=== PATIENT | female | born 1960 | race Caucasian/White ===

== ENCOUNTER → 2017-02-27 | Outpatient (CLI) | payer MEDICARE, BC ==
--- NOTE | 2017-02-27 15:15 | US ---
EXAMINATION TYPE: US venous doppler duplex LE DATE OF EXAM: 02/27/2017 2:34 PM COMPARISON: US CLINICAL HISTORY: I87.2 Venious Insuffiency I73.9 Decreased Pulses. Pt states H/O DVT right leg, curr ently has Chava filter in place SIDE PERFORMED: Bilateral TECHNIQUE: The lower extremity deep venous system is examined utilizing real time linear array sonog lili with graded compression, doppler sonography and color-flow sonography. VESSELS IMAGED: External Iliac Vein (EIV) Common Femoral Vein Deep Femoral Vein Greater Saphenous Vein * Femoral Vein Popliteal Vein Small Saphenous Vein * Proximal Calf Veins (* superficial vessels) Right Leg: Negative for DVT Left Leg: Negative for DVT IMPRESSION: 1. No evidence of DVT as visualized.
--- NOTE | 2017-03-05 11:08 | P.ARTDOP ---
Arterial Doppler LOWER EXTREMITY ARTERIAL DOPPLER: DATE OF SERVICE: 02/27/2017 Reason for study: Bilateral lower leg discoloration. Doppler waveforms: Multiphasic bilaterally throughout. Pulse volume recording: []. Pressure gradients: Mild at the foot level. Ankle-brachial indices: 0.99 on the right and 0.92 on the left. Toe pressures: 62 on the right, 66 on the left Impression: Possible mild SFA disease on the left. Decreased toe pressures probably vasospastic. Waveforms look good. Adequate tissue perfusion for healing.
== END | disposition home or self-care (01) ==
LOC: RADUSWWP 14:03
PROVIDERS: ATTEND Family Medicine
DX: I87.2 Venous insufficiency (chronic) (peripheral) (principal); I73.9 Peripheral vascular disease, unspecified
CPT/HCPCS: 93923; 93970

== ENCOUNTER 2017-05-17 16:01 | Emergency (ER) | payer MEDICARE, BC ==
[2017-05-17 16:06] VITALS: BP 120/58; PULSE 83; RESP 18; TEMP 98.4
--- NOTE | 2017-05-17 16:33 | ED ---
General Adult HPI - General Chief complaint: Extremity Problem,Nontraumatic Stated complaint: Arm Rash Time Seen by Provider: 05/17/17 16:15 Source: patient, RN notes reviewed Mode of arrival: ambulatory Limitations: no limitations - History of Present Illness Initial comments: patient is a 57-year-old female who presents emergency room today with chief complaint of a rash. She does admit that she has started using a new soap just a few days ago. She states has rash to her upper extremities across her trunk. She states it is very itchy. She also admits to a chronic dermatitis to the right lower extremity. She states she has noticed increased redness and some drainage coming from this area now just over the last 2 days. Patient does admit that she went to [facility] was advised coming here to room. She states she is not short of breath. She states she does use oxygen at home. She denies any other complaints or associated symptoms at this time. Patient denies any recent fever, chills, shortness of breath, chest pain, back pain, abdominal pain, nausea or vomiting, numbness or tingling, dysuria or hematuria, constipation or diarrhea, headaches or visual changes, or any other complaints. - Related Data Home Medications Medication Instructions Recorded Confirmed Albuterol Sulfate [Proventil Hfa] 2 puff INHALATION RT-Q8H PRN 05/25/15 05/25/15 Citalopram Hydrobromide [CeleXA] 20 mg PO DAILY 05/25/15 05/25/15 Enalapril [Vasotec] 10 mg PO BID 05/25/15 05/25/15 Furosemide [Lasix] 40 mg PO BID 05/25/15 05/25/15 Metoprolol Tartrate [Lopressor] 75 mg PO BID 05/25/15 05/25/15 Omeprazole [PriLOSEC] 20 mg PO BID 05/25/15 05/25/15 Phenytoin Sodium Extended 200 mg PO TID 05/25/15 05/25/15 [Dilantin] Potassium Chloride [Klor-Con 20] 20 meq PO DAILY 05/25/15 05/25/15 Simvastatin [Zocor] 40 mg PO HS 05/25/15 05/25/15 glipiZIDE XL [Glucotrol XL] 10 mg PO DAILY 05/25/15 05/25/15 metFORMIN HCL 1,000 mg PO BID 05/25/15 05/25/15 Previous Rx's Medication Instructions Recorded Cefuroxime [Ceftin] 250 mg PO BID #20 tablet 06/01/15 Enoxaparin [Lovenox] 120 mg SQ Q12HR #10 syringe 06/01/15 Insulin Detemir [Levemir] 20 unit SQ DAILY@1800 #30 vial 06/01/15 Ipratropium-Albuterol Nebulize 0 ml INHALATION RT-QID #120 neb 06/01/15 [Duoneb 0.5 mg-3 mg/3 ml Soln] Warfarin [Coumadin] 15 mg PO DAILY #60 tab 06/01/15 amLODIPine [Norvasc] 5 mg PO DAILY #30 tab 06/01/15 predniSONE 20 mg PO DAILY #7 tab 06/01/15 Cephalexin [Keflex] 500 mg PO Q12HR 10 Days 05/17/17 Famotidine [Pepcid] 20 mg PO BID #20 tablet 05/17/17 diphenhydrAMINE [Benadryl] 1 - 2 tab PO Q6HR PRN #30 capsule 05/17/17 predniSONE 20 mg PO DIRECTED #11 tab 05/17/17 Allergies Allergy/AdvReac Type Severity Reaction Status Date / Time codeine Allergy Rash/Hives Verified 05/17/17 16:07 Review of Systems ROS Statement: Those systems with pertinent positive or pertinent negative responses have been documented in the HPI. ROS Other: All systems not noted in ROS Statement are negative. Past Medical History Past Medical History: Asthma, COPD, CVA/TIA, Diabetes Mellitus, Deep Vein Thrombosis (DVT), GERD/Reflux, Hyperlipidemia, Hypertension, Memory Impairment, Pneumonia, Seizure Disorder, Sleep Apnea/CPAP/BIPAP Additional Past Medical History / Comment(s): obesity, subarachniod hemorrhage 2004 History of Any Multi-Drug Resistant Organisms: None Reported Past Surgical History: Adenoidectomy, Tonsillectomy Additional Past Surgical History / Comment(s): craniotomy 2005, tonsillectomy, wisdom teeth out , joby filter Past Anesthesia/Blood Transfusion Reactions: No Reported Reaction Past Psychological History: Depression Smoking Status: Current every day smoker Past Alcohol Use History: None Reported Past Drug Use History: None Reported - Past Family History Father Family Medical History: COPD, Coronary Artery Disease (CAD), CVA/TIA (Father at age of 68 from the vascular disease including CVA hypertension as well as diabetes mellitus type 2 .), Diabetes Mellitus, Hypertension Mother Family Medical History: COPD, Diabetes Mellitus (Mother at age of 72 from diabetes. His to as well as brain. She also had history of hypertension and COPD.), Hypertension Sister(s) Family Medical History: No Reported History (Patient has 2 sisters no major medical problems.) General Exam - General Exam Comments Initial Comments: General: The patient is awake and alert, in no distress, and does not appear acutely ill. Eye: Pupils are equal, round and reactive to light, extra-ocular movements are intact. No nystagmus. There is normal conjunctiva bilaterally. No signs of icterus. Ears, nose, mouth and throat: There are moist mucous membranes and no oral lesions. Neck: The neck is supple, there is no tenderness or JVD. Cardiovascular: There is a regular rate and rhythm. No murmur, rub or gallop is appreciated. Respiratory: Lungs are clear to auscultation, respirations are non-labored, breath sounds are equal. No wheezes, stridor, rales, or rhonchi. Musculoskeletal: Normal ROM, no tenderness. Strength 5/5. Sensation intact. Pulses equal bilaterally 2+. Neurological: A&O x 3. CN II-XII intact, There are no obvious motor or sensory deficits. Coordination appears grossly intact. Speech is normal. Skin: patient does have red raised maculopapular type rash going across the upper extremities and trunk. Chronic vasculitis to the right lower extremity with some redness on the border with some blisters fluid-filled to posterior aspect. Psychiatric: Cooperative, appropriate mood & affect, normal judgment. Limitations: no limitations Course Vital Signs 05/17/17 16:02 Temperature 98.4 F Pulse Rate 83 Respiratory 18 Rate Blood Pressure 120/58 O2 Sat by Pulse 87 L Oximetry Medical Decision Making - Medical Decision Making Case discussed in detail with attending physician Dr. Prieto. Patient reexamined at this time shows no signs of distress resting comfortably. patient will be placed on Benadryl, Pepcid, given steroid. She is diabetic states she takes metformin. Was discussed about this affecting her blood sugar. Patient was started on the antibiotic Keflex cover for possible secondary infection. since a pulse ox 97% on room air emergency room. She does admit she does not feel short of breath does use oxygen at home. Patient previous visit in the emergency room on 05/25/2015 pulse ox 86% on room air.Patient advised follow- up family doctor return here to the emergency room symptoms increase or worsen or for any other concerns. Disposition Clinical Impression: Allergic reaction Disposition: HOME SELF-CARE Condition: Stable Instructions: General Allergic Reaction (ED) Additional Instructions: Please use medication as discussed. Please follow-up with family doctor in the next 2 days of symptoms have not improved. Please return to emergency room if the symptoms increase or worsen or for any other concerns. Prescriptions: Cephalexin [Keflex] 500 mg PO Q12HR 10 Days diphenhydrAMINE [Benadryl] 1 - 2 tab PO Q6HR PRN #30 capsule PRN Reason: Allergic Reaction Famotidine [Pepcid] 20 mg PO BID #20 tablet predniSONE 20 mg PO DIRECTED #11 tab Referrals: Rome Astudillo MD [Primary Care Provider] - 1-2 days Time of Disposition: 16:32
== END 2017-05-17 17:01 | disposition home or self-care (01) ==
LOC: EC 16:01
DX: T78.40XA Allergy, unspecified, initial encounter (principal); E11.9 Type 2 diabetes mellitus without complications; K21.9 Gastro-esophageal reflux disease without esophagitis; E78.5 Hyperlipidemia, unspecified; I10 Essential (primary) hypertension; G40.909 Epilepsy, unspecified, not intractable, without status epilepticus; E66.9 Obesity, unspecified; F32.9 Major depressive disorder, single episode, unspecified; F17.200 Nicotine dependence, unspecified, uncomplicated; Z68.42 Body mass index [BMI] 45.0-49.9, adult; Z88.5 Allergy status to narcotic agent; Z79.84 Long term (current) use of oral hypoglycemic drugs; Z79.899 Other long term (current) drug therapy
CPT/HCPCS: 87070; 87205; 99283

== ENCOUNTER → 2017-06-10 | Outpatient (CLI) | payer MEDICARE, BC ==
--- NOTE | 2017-06-10 15:41 | US ---
LOWER EXTREMITY VENOUS INSUFFICIENCY SIDE PERFORMED: Bilateral 1) Color flow is present and patency is documented in the following vessels. No DVT or SVT is noted . EIV Common Femoral Vein Deep Femoral Vein Femoral Vein Popliteal Vein Proximal Calf Veins Greater Saph Vein Upper Small Saph Vein 2) There is venous reflux noted at the following venous levels: Right: EIV, CFV, femoral mid and di stal, popliteal proximal mid and distal, and small saph vein Valsalva not performed on left mid and distal femoral vein and popliteal vein due to patient starte d feeling dizzy. IMPRESSION: 1. Venous reflux right lower extremity.
== END | disposition home or self-care (01) ==
LOC: RADUSWWP 14:27
PROVIDERS: ATTEND Family Medicine
DX: I87.8 Other specified disorders of veins (principal)
CPT/HCPCS: 93970

== ENCOUNTER → 2018-08-27 | Outpatient (CLI) | payer MEDICARE, BC ==
--- NOTE | 2018-08-27 21:17 | CONS ---
CONSULTATION DATE OF SERVICE: 08/27/2018 This patient is a 58-year-old lady who has been evaluated in the sleep center for obstructive sleep apnea-hypopnea syndrome. HISTORY OF PRESENT ILLNESS/SLEEP-WAKE EVALUATION: This patient was diagnosed with obstructive sleep apnea about 15 years ago. Since that time she has been on treatment with CPAP. CPAP machine was broken several months ago. At present, her sleep schedule is from around 1 or 2 a.m. until 7 or 7:30 a.m. Sometimes she has problems with falling asleep, although there is no TV in the bedroom. She snores, has episodes of stopped breathing during sleep, awakenings with choking, palpitation, heartburn and nocturia. In the morning she wakes up tired, has difficulties paying attention, falling asleep during the day, has problems with memory, concentration, irritability, depression. [place] Sleepiness Scale today is significantly increased at 16. PAST MEDICAL HISTORY: Positive for: 1. Hypertension. 2. Diabetes mellitus. 3. COPD. 4. Multiple brain aneurysms with intracranial bleed in 2004. She had seizures at this time. 5. Hyperlipidemia. 6. Depression. 7. Acid reflux. 8. History of cardiac arrhythmia. PAST SURGICAL HISTORY: 1. Surgery for repairing brain aneurysms. . MEDICATIONS: 1. Metformin. 2. Enalapril. 3. Isosorbide. 4. Omeprazole. 5. Furosemide. 6. Lisinopril. 7. . 8. Metoprolol. 9. Amlodipine. 10.Glipizide. 11.Simvastatin. 12.Citalopram. 13.Patient is on 2 L/minute during sleep at home. FAMILY HISTORY: Hypertension, angina, heart problems, hyperlipidemia, stroke, bronchitis, lung problems, emphysema, acid reflux, diabetes, mental illness. SOCIAL HISTORY: History positive for smoking up to 2 packs per day for 30 years. Alcohol consumption none at the present time. REVIEW OF SYSTEMS: Snoring, multiple awakenings from sleep with choking, excessive daytime sleepiness. Patient takes naps 3 times a day. Significant swelling of the legs. PHYSICAL EXAMINATION: GENERAL: A pleasant lady without distress. VITAL SIGNS: BP 147/72, HR 91, RR 18, height 5 feet 1 inch, weight 267.6, body mass index 50.4, temperature 98.0, oxygen saturation at room air 88%. HEENT: PERRLA, EOMI. Evaluation of oropharynx showed tongue protrudes midline. Low position of soft palate. Retrognathia 7 mm. NECK: Supple. No JVD. Thyroid is not palpable. LUNGS: Clear to percussion and to auscultation. Good air exchange. No wheezing or rhonchi. HEART: S1, S2 regular. Soft systolic murmur on aorta. ABDOMEN: Obese. EXTREMITIES: Two plus bilateral leg edema with dermatitis. Dull sensation of the feet. DEFENSE TRAVEL ADMINISTRATOR: Awake, alert, and oriented X3. Cranial nerves 2 to 7 intact. There is no fasciculation or atrophy. noted. No focal deficits observed. IMPRESSION: 1. History of obstructive sleep apnea for 20 years, snoring, awakenings with choking, gasping for air, low position of soft palate, wide neck 16 inches in circumference, sleepiness, [place] Sleepiness Scale 16; obstructive sleep apnea-hypopnea syndrome. 2. History of chronic obstructive pulmonary disease; about 50 pack/years of smoking. Patient is on 2 L/minute oxygen supplement 24 hours per day. 3. Obesity; body mass index 50.4. 4. Hypertension. 5. History of 5 brain aneurysms, status post intracranial bleed in 2004. 6. Balance problems. 7. History of seizures in 2004 at the time of the intracranial bleed. 8. Diabetes mellitus. 9. History of cardiac arrhythmia. 10.Hyperlipidemia. 11.Depression. 12.Patient continues smoking about 1 pack a day. PLAN: 1. Polysomnography for evaluation of patient's breathing during sleep as soon as possible. 2. CPAP/BiPAP titration as soon as possible if sleep study confirms obstructive sleep apnea-hypopnea syndrome. 3. Preferable position during sleep on the side. 4. No driving if patient feels any sleepiness. 5. I will see patient for follow up visit to explain results of testing and following plan. Thank you very much for referring this patient for consultation. Sincerely, Andrea Browning MD, PhD, FAASM Diplomat of [employer] [facility] [place] MMODL / IJN: [id number] /
== END | disposition home or self-care (01) ==
LOC: SLEEP 16:13
PROVIDERS: ATTEND Internal Medicine
DX: G47.33 Obstructive sleep apnea (adult) (pediatric) (principal); E66.9 Obesity, unspecified; I10 Essential (primary) hypertension; R26.89 Other abnormalities of gait and mobility; E11.9 Type 2 diabetes mellitus without complications; E78.5 Hyperlipidemia, unspecified; F32.9 Major depressive disorder, single episode, unspecified; J44.9 Chronic obstructive pulmonary disease, unspecified; F17.210 Nicotine dependence, cigarettes, uncomplicated; Z68.43 Body mass index [BMI] 50.0-59.9, adult; Z86.79 Personal history of other diseases of the circulatory system; Z86.69 Personal history of other diseases of the nervous system and sense organs; Z99.81 Dependence on supplemental oxygen; Z98.890 Other specified postprocedural states; Z79.84 Long term (current) use of oral hypoglycemic drugs; Z79.899 Other long term (current) drug therapy
CPT/HCPCS: 99211

== ENCOUNTER → 2018-12-10 | Outpatient (CLI) | payer MEDICARE, BC ==
--- NOTE | 2018-12-10 17:28 | PN ---
PROGRESS NOTE DATE OF SERVICE: 12/10/2018 This patient is a 58-year-old lady who has been followed in Sleep Center for treatment of obstructive sleep apnea-hypopnea syndrome. In September of 2018 the patient had a polysomnogram which showed that patient has obstructive sleep apnea with significant oxygen desaturation during the night. Subsequently she had CPAP titration, and today is her first visit after she was started on treatment with BiPAP. Patient feels better with the BiPAP. She is able to use it every night without significant problems related to mask fitting, pressure and humidification. She is using it with additional 4 L/minute of oxygen supplement. Reading from her machine showed usage 100% of the nights, and 90% of the nights for more than 4 hours with average usage of 7 hours and 3 minutes. BiPAP range of pressure was from minimal EPAP 5 cm of water to the maximal IPAP 18 cm of water with a pressure support of 4 cm of water. Apnea-hypopnea index reading from the machine is only 0.6, which is absolutely normal. [place] Sleepiness Scale today is 7. MEDICATIONS: 1. Metformin. 2. Enalapril. 3. Isosorbide. 4. Omeprazole. 5. Furosemide. 6. Lisinopril. 7. Metoprolol. 8. Amlodipine. 9. Glipizide. 10.Simvastatin. 11.Citalopram. 12.Phenytoin. PHYSICAL EXAMINATION: GENERAL: A pleasant patient in no distress. VITAL SIGNS: BP 130/65, HR 94, RR 16, weight 250, temperature 98.3, oxygen saturation at room air 92%. HEENT: PERRLA, EOMI. Evaluation of oropharynx showed tongue protrudes midline. Low position of soft palate. Mallampati III. NECK: Supple. No JVD. Thyroid is not palpable. LUNGS: Clear to percussion and to auscultation. Good air exchange. No wheezing or rhonchi. HEART: Systolic murmur. ABDOMEN: Obese. EXTREMITIES: One plus ankle edema. CARTON FILLING MACHINE OPERATOR: Awake, alert, and oriented X3. Cranial nerves 2 to 7 intact. There is no fasciculation or atrophy. noted. No focal deficits observed. IMPRESSION: 1. Obstructive sleep apnea-hypopnea syndrome. Patient demonstrated great compliance with treatment, benefitting from treatment with BiPAP. 2. Chronic obstructive pulmonary disease. Patient is on oxygen supplement 24 hours a day. 3. History of smoking 50 pack/years. Patient continues to smoke. 4. Obesity. 5. Hypertension. 6. History of 5 brain aneurysms, status post intracranial bleed in 2004. 7. Balance problems. 8. History of seizures in 2005 at the time of intracranial bleed. 9. Diabetes mellitus. 10.History of cardiac arrhythmia. 11.Hyperlipidemia. 12.Depression. PLAN: 1. Smoking cessation program. 2. Patient should continue to use her BiPAP equipment every night for the whole night. 3. Losing weight. 4. Sleep hygiene with regular time in bed for at least 8 hours. 5. No driving if feeling any sleepiness. 6. We will maintain all necessary prescriptions for CPAP supplies, including mask, tube, filters. Thank you very much for allowing me to participate in the management of your patient. Sincerely, Andrea Browning MD, PhD, FAASM Diplomat of [employer] [facility] [place] MMODL / IJN: [id number] /
== END | disposition home or self-care (01) ==
LOC: SLEEP 15:19
PROVIDERS: ATTEND Internal Medicine
DX: G47.33 Obstructive sleep apnea (adult) (pediatric) (principal); J44.9 Chronic obstructive pulmonary disease, unspecified; F17.210 Nicotine dependence, cigarettes, uncomplicated; E66.9 Obesity, unspecified; I10 Essential (primary) hypertension; G40.909 Epilepsy, unspecified, not intractable, without status epilepticus; E11.9 Type 2 diabetes mellitus without complications; E78.5 Hyperlipidemia, unspecified; F32.9 Major depressive disorder, single episode, unspecified; Z79.84 Long term (current) use of oral hypoglycemic drugs; Z99.81 Dependence on supplemental oxygen; Z99.89 Dependence on other enabling machines and devices; Z86.79 Personal history of other diseases of the circulatory system; Z79.899 Other long term (current) drug therapy

== ENCOUNTER → 2019-03-22 | Outpatient (CLI) | payer MEDICARE, BC ==
--- NOTE | 2019-03-22 23:36 | BD ---
EXAMINATION TYPE: Axial Bone Density DATE OF EXAM: 03/22/2019 COMPARISON: NONE CLINICAL HISTORY: 59-year-old female disorder of bone Height: 5'1 Weight: 257 FRAX RISK QUESTIONS: History of Fracture in Adulthood: y Secondary Osteoporosis: 3. Menopause before 45: y Current Tobacco Use: y RISK FACTORS HISTORY OF: History of Wrist Fracture: R When: 2017 Family History of Osteoporosis: y Diet low in dairy products/other sources of calcium: y Postmenopausal woman: y Frequent falls: y Poor Health: y MEDICATIONS: Additional Medications: blood pressure, cardiac, diabetes, COPD Additional History: pt on O2 EXAM MEASUREMENTS: Bone mineral densitometry was performed using the [employer] System. Bone mineral density as measured about the Lumbar spine is: ----- L1-L4(G/cm2): 1.066 T Score Values are as follows: ----- L2: -1.3 ----- L3: -0.8 ----- L4: -1.1 ----- L1-L4: -1.0 Bone mineral density about the R hip (g/cm2): 0.763 Bone mineral density about the L hip (g/cm2): 0.747 T Score values are as follows: -----R Neck: -2.0 -----L Neck: -2.1 -----R Total: -1.9 -----L Total: -1.0 IMPRESSION: Osteopenia (T Score between -2.5 and -1). There is slightly increased risk of fracture and the patient may be considered for treatment. Re-Screen 2-5 years. NOTE: T-SCORE=SD OF THE YOUNG ADULT MEAN.
--- NOTE | 2019-03-24 08:48 | MM ---
Reason for exam: screening (asymptomatic). Last mammogram was performed 10 years and 9 months ago. History: Patient is postmenopausal and is nulliparous. Physical Findings: A clinical breast exam by your physician is recommended on an annual basis and results should be correlated with mammographic findings. MG 3D Screening Mammo W/Cad Bilateral CC and MLO view(s) were taken. Prior study comparison: June 15, 2008, bilateral digital screening mammogram. There are scattered fibroglandular densities. No significant changes when compared with prior studies. ASSESSMENT: Negative, BI-RAD 1 RECOMMENDATION: Routine screening mammogram of both breasts in 1 year.
== END | disposition home or self-care (01) ==
LOC: RADMAMWWP 15:24
PROVIDERS: ATTEND Family Medicine
DX: Z12.31 Encounter for screening mammogram for malignant neoplasm of breast (principal); M85.80 Other specified disorders of bone density and structure, unspecified site; Z78.0 Asymptomatic menopausal state
CPT/HCPCS: 77063; 77067; 77080

== ENCOUNTER 2019-06-03 16:01 | Inpatient (IN) | payer MEDICARE, BC ==
[2019-06-03] MEDS ORDERED: IPRATROPIUM-ALBUTEROL 3 ML NEB INHALATION STA (16:22)
[2019-06-03] MEDS ORDERED: NITROGLYCERIN-D5W PMX 50 MG in DEXTROSE/WATER 1 250ML.BAG IV ONE (16:29)
[2019-06-03] MEDS ORDERED: FUROSEMIDE 10 MG/ML 4 ML VIAL IV STA (16:30)
[2019-06-03 16:33] LABS: Anisocytosis Slight; Basophils % (A) 0 %; Eosinophils # (A) 0.2 k/uL (0-0.7); Eosinophils % (A) 2 %; HCT 32.5 % (34.0-46.0); HGB 10.3 gm/dL (11.4-16.0); Hypochromasia Slight; Lymphocytes % (A) 9 %; MCH 29.8 pg (25.0-35.0); MCHC 31.8 g/dL (31.0-37.0); MCV 93.7 fL (80.0-100.0); Mean Platelet Volume 6.2; Monocytes # (A) 0.4 k/uL (0-1.0); Monocytes % (A) 4 %; Neutrophils # (A) 9.5 k/uL (1.3-7.7); Neutrophils % (A) 84 %; Platelet Count 367 k/uL (150-450); RBC 3.47 m/uL (3.80-5.40); WBC 11.2 k/uL (3.8-10.6)
--- NOTE | 2019-06-03 16:36 | XR ---
EXAMINATION TYPE: XR chest 1V portable DATE OF EXAM: 06/03/2019 COMPARISON: 02/17/2019 HISTORY: Short of breath TECHNIQUE: Single frontal view of the chest is obtained. FINDINGS: Heart appears enlarged. There is pulmonary edema. There is no definite pleural effusion. T here are chest leads. IMPRESSION: Moderate pulmonary edema is a change compared to old exam and consistent with acute hear t failure.
[2019-06-03 16:40] LABS: VBG PH 7.31 (7.31-7.41)
[2019-06-03 16:43] LABS: ALT 40 U/L (9-52); AST 27 U/L (14-36); African American GFR (CKD) >90 (>60 ml/min/1.73 sqM); Albumin 4.1 g/dL (3.5-5.0); Alkaline Phosphatase 128 U/L (38-126); Anion Gap 7 mmol/L; Blood Urea Nitrogen 29 mg/dL (7-17); Calcium 8.7 mg/dL (8.4-10.2); Carbon Dioxide 30 mmol/L (22-30); Chloride 104 mmol/L (98-107); Glucose 208 mg/dL (74-99); Magnesium 2.2 mg/dL (1.6-2.3); Potassium 4.9 mmol/L (3.5-5.1); Sodium 141 mmol/L (137-145); Total Bilirubin 0.2 mg/dL (0.2-1.3); Total Protein 7.7 g/dL (6.3-8.2)
--- NOTE | 2019-06-03 16:48 | ED ---
General Adult HPI - General Chief complaint: Shortness of Breath Stated complaint: HU Chest pain Time Seen by Provider: 06/03/19 16:02 Source: patient Mode of arrival: EMS Limitations: no limitations - History of Present Illness Initial comments: Dictation was produced using [employer] dictation software. please excuse any grammatical, word or spelling errors. Chief Complaint: 79-year-old female with extensive history of asthma, intracranial ruptured aneurysm, deep venous thrombosis, COPD, CHF presents with shortness of breath and chest pain for the last 48 hours. History of Present Illness: 79-year-old female she is brought in by EMS. Patient states she is here today for shortness of breath and chest pain. States the chest pain is substernal crushing pressure that radiates to the right upper extremity and the jaws bilaterally. Patient states that she has a history of coronary artery disease. She was recently seen at her hand tube bender's office. The wanted to perform a trans esophageal echocardiogram and cardiac catheterization or patient went to postpone the procedure. Patient's symptoms have been ongoing for several months however rapidly progressive the last 2-3 days. Patient has history of DVTs thromboses. She is not on any anticoagulation because she has a history of intracranial bleed. Patient also has history of COPD. She was brought in by EMS. Prehospital EKG showed diffuse ST segment depression. She is placed on supplemental oxygen and was hypoxic for EMS. She does feel like her shortness of breath is worse with lying flat. She does complain of swelling of bilateral lower extremities. Patient has a history of valvular disease. The ROS documented in this emergency department record has been reviewed and confirmed by me. Those systems with pertinent positive or negative responses have been documented in the HPI. All other systems are other negative and/or noncontributory. PHYSICAL EXAM: General Impression: Alert and oriented x3, dyspneic HEENT: Normocephalic atraumatic, extra-ocular movements intact, pupils equal and reactive to light bilaterally, dry mucous membranes Cardiovascular: Tachycardic Chest: Bilateral lung crackles Abdomen: Bowel sounds present, abdomen soft, non-tender, non-distended, no organomegaly, obese Musculoskeletal: Pulses present and equal in all extremities, 2+ pitting edema to bilateral lower extremities Motor: no focal deficits noted Neurological: CN II-XII grossly intact, no focal motor or sensory deficits noted Skin: Intact with no visualized rashes Psych: Normal affect and mood ED course: 59-year-old female with multiple cardiopulmonary comorbidities presents with chest pain and shortness of breath. As upon arrival shows heart rate of 114, respiratory rate of 26, 89% on BiPAP. Patient was seen and evaluated initially in trauma resuscitation bay. Patient was showing signs of active respiratory distress. She does have positive findings on auscultation of the lungs. Clinical presentation is likely from acute D, stated heart failure however given patient's extensive medical history there is concern for acute coronary syndrome, pulmonary embolus. She was given aspirin and nitroglycerin for EMS. EKG was performed immediately showing diffuse ST depressions with AVR elevation. Patient case was discussed immediately with Dr. Li who recommends starting patient on nitro infusion. 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 Coag panel negative. D-dimer is 1.3. His blood gases shows pH of 7.3 with a CO2 of 62 and a bicarb of 30. Metabolic panel is unremarkable. Brain natruretic peptide is 400. Urinalysis is negative. Discussed patient case with Dr. Bermudez who does not recommend starting patient on heparin given history of intracranial bleed. He does recommend getting Doppler studies of the lower venous systems to evaluate for DVT for possible before meals filter. Patient was observed in emergency department and finally was able to to tolerate lying flat. CT angios the chest was obtained showing no evidence of pulmonary embolism. There did however appear to be bilateral lower lobe pulmonary infiltrates. Patient has been having a cough. There is concern of pneumonia. Patient given antibiotics for community acquired pneumonia. Patient was maintained on glycerin infusion. She is reevaluated and improved. She did have a [place] catheter placed. Patient appears stable for cardiac telemetry floor. Discussed patient case with Dr. Astudillo was went except patient's care. Cardiology and pulmonology on consultation. EKG interpretation: Ventricular rate 1:30, sinus tachycardia, VA interval 154, QS 96, QTC 471. There is AVR elevation, right axis deviation diffuse ST depression and sinus tachycardia. This was compared to EKG performed in 05/25/2015. - Related Data Home Medications Medication Instructions Recorded Confirmed Citalopram Hydrobromide [CeleXA] 20 mg PO DAILY 05/25/15 06/03/19 Enalapril [Vasotec] 10 mg PO BID 05/25/15 06/03/19 Furosemide [Lasix] 40 mg PO BID 05/25/15 06/03/19 Metoprolol Tartrate [Lopressor] 75 mg PO BID 05/25/15 06/03/19 Phenytoin Sodium Extended 200 mg PO TID 05/25/15 06/03/19 [Dilantin] Simvastatin [Zocor] 40 mg PO HS 05/25/15 06/03/19 glipiZIDE XL [Glucotrol XL] 10 mg PO DAILY 05/25/15 06/03/19 metFORMIN HCL 1,000 mg PO BID 05/25/15 06/03/19 Isosorbide Mononitrate ER [Imdur] 30 mg PO DAILY 06/03/19 06/03/19 Lisinopril [Zestril] 2.5 mg PO DAILY 06/03/19 06/03/19 Omeprazole [PriLOSEC] 10 mg PO BID 06/03/19 06/03/19 Previous Rx's Medication Instructions Recorded amLODIPine [Norvasc] 5 mg PO DAILY #30 tab 06/01/15 Allergies Allergy/AdvReac Type Severity Reaction Status Date / Time codeine Allergy Rash/Hives Verified 06/03/19 16:48 Review of Systems ROS Statement: Those systems with pertinent positive or pertinent negative responses have been documented in the HPI. ROS Other: All systems not noted in ROS Statement are negative. Past Medical History Past Medical History: Asthma, COPD, CVA/TIA, Diabetes Mellitus, Deep Vein Thrombosis (DVT), GERD/Reflux, Hyperlipidemia, Hypertension, Memory Impairment, Pneumonia, Seizure Disorder, Sleep Apnea/CPAP/BIPAP Additional Past Medical History / Comment(s): obesity, subarachniod hemorrhage 2004 History of Any Multi-Drug Resistant Organisms: None Reported Past Surgical History: Adenoidectomy, Tonsillectomy Additional Past Surgical History / Comment(s): craniotomy 2005, tonsillectomy, wisdom teeth out , joby filter Past Anesthesia/Blood Transfusion Reactions: No Reported Reaction Past Psychological History: Depression Smoking Status: Current every day smoker Past Alcohol Use History: None Reported Past Drug Use History: None Reported - Past Family History Father Family Medical History: COPD, Coronary Artery Disease (CAD), CVA/TIA, Diabetes Mellitus, Hypertension Mother Family Medical History: COPD, Diabetes Mellitus, Hypertension Sister(s) Family Medical History: No Reported History General Exam Limitations: no limitations Course Vital Signs 06/03/19 06/03/19 06/03/19 16:09 16:18 16:23 Temperature Pulse Rate 119 H 118 H Respiratory 22 26 H Rate Blood Pressure 173/82 O2 Sat by Pulse 89 L Oximetry 06/03/19 06/03/19 06/03/19 16:33 16:40 17:11 Temperature Pulse Rate 114 H 122 H 121 H Respiratory 30 H 30 H Rate Blood Pressure 170/78 178/99 O2 Sat by Pulse 90 L 90 L Oximetry 06/03/19 06/03/19 06/03/19 18:00 18:24 19:26 Temperature 97.4 F L Pulse Rate 89 88 86 Respiratory 25 H 25 H 22 Rate Blood Pressure 126/76 136/69 133/67 O2 Sat by Pulse 100 100 98 Oximetry Medical Decision Making - Lab Data Result diagrams: 06/03/19 16:16 06/03/19 16:16 Lab Results 06/03/19 06/03/19 06/03/19 Range/Units 16:16 16:16 16:16 WBC 11.2 H (3.8-10.6) k/uL RBC 3.47 L (3.80-5.40) m/uL Hgb 10.3 L (11.4-16.0) gm/dL Hct 32.5 L (34.0-46.0) % MCV 93.7 (80.0-100.0) fL MCH 29.8 (25.0-35.0) pg MCHC 31.8 (31.0-37.0) g/dL RDW 16.0 H (11.5-15.5) % Plt Count 367 (150-450) k/uL Neutrophils % 84 % Lymphocytes % 9 % Monocytes % 4 % Eosinophils % 2 % Basophils % 0 % Neutrophils # 9.5 H (1.3-7.7) k/uL Lymphocytes # 1.0 (1.0-4.8) k/uL Monocytes # 0.4 (0-1.0) k/uL Eosinophils # 0.2 (0-0.7) k/uL Basophils # 0.0 (0-0.2) k/uL Hypochromasia Slight Anisocytosis Slight PT 9.9 (9.0-12.0) sec INR 0.9 (<1.2) APTT 23.5 (22.0-30.0) sec D-Dimer 1.33 H (<0.60) mg/L FEU VBG pH (7.31-7.41) VBG pCO2 (37-51) mmHg VBG HCO3 (24-28) mmol/L Sodium 141 (137-145) mmol/L Potassium 4.9 (3.5-5.1) mmol/L Chloride 104 (98-107) mmol/L Carbon Dioxide 30 (22-30) mmol/L Anion Gap 7 mmol/L BUN 29 H (7-17) mg/dL Creatinine 0.60 (0.52-1.04) mg/dL Est GFR (CKD-EPI)AfAm >90 (>60 ml/min/1.73 sqM) Est GFR (CKD-EPI)NonAf >90 (>60 ml/min/1.73 sqM) Glucose 208 H (74-99) mg/dL Calcium 8.7 (8.4-10.2) mg/dL Magnesium 2.2 (1.6-2.3) mg/dL Total Bilirubin 0.2 (0.2-1.3) mg/dL AST 27 (14-36) U/L ALT 40 (9-52) U/L Alkaline Phosphatase 128 H (38-126) U/L Troponin I (0.000-0.034) ng/mL NT-Pro-B Natriuret Pep pg/mL Total Protein 7.7 (6.3-8.2) g/dL Albumin 4.1 (3.5-5.0) g/dL Urine Color Urine Appearance (Clear) Urine pH (5.0-8.0) Ur Specific [place] (1.001-1.035) Urine Protein (Negative) Urine Glucose (UA) (Negative) Urine Ketones (Negative) Urine Blood (Negative) Urine Nitrite (Negative) Urine Bilirubin (Negative) Urine Urobilinogen (<2.0) mg/dL Ur Leukocyte Esterase (Negative) Urine RBC (0-5) /hpf Urine WBC (0-5) /hpf Hyaline Casts (0-2) /lpf Urine Mucus (None) /hpf 06/03/19 06/03/19 06/03/19 Range/Units 16:16 16:16 16:27 WBC (3.8-10.6) k/uL RBC (3.80-5.40) m/uL Hgb (11.4-16.0) gm/dL Hct (34.0-46.0) % MCV (80.0-100.0) fL MCH (25.0-35.0) pg MCHC (31.0-37.0) g/dL RDW (11.5-15.5) % Plt Count (150-450) k/uL Neutrophils % % Lymphocytes % % Monocytes % % Eosinophils % % Basophils % % Neutrophils # (1.3-7.7) k/uL Lymphocytes # (1.0-4.8) k/uL Monocytes # (0-1.0) k/uL Eosinophils # (0-0.7) k/uL Basophils # (0-0.2) k/uL Hypochromasia Anisocytosis PT (9.0-12.0) sec INR (<1.2) APTT (22.0-30.0) sec D-Dimer (<0.60) mg/L FEU VBG pH 7.31 (7.31-7.41) VBG pCO2 62 H (37-51) mmHg VBG HCO3 30 H (24-28) mmol/L Sodium (137-145) mmol/L Potassium (3.5-5.1) mmol/L Chloride (98-107) mmol/L Carbon Dioxide (22-30) mmol/L Anion Gap mmol/L BUN (7-17) mg/dL Creatinine (0.52-1.04) mg/dL Est GFR (CKD-EPI)AfAm (>60 ml/min/1.73 sqM) Est GFR (CKD-EPI)NonAf (>60 ml/min/1.73 sqM) Glucose (74-99) mg/dL Calcium (8.4-10.2) mg/dL Magnesium (1.6-2.3) mg/dL Total Bilirubin (0.2-1.3) mg/dL AST (14-36) U/L ALT (9-52) U/L Alkaline Phosphatase (38-126) U/L Troponin I <0.012 (0.000-0.034) ng/mL NT-Pro-B Natriuret Pep 414 pg/mL Total Protein (6.3-8.2) g/dL Albumin (3.5-5.0) g/dL Urine Color Urine Appearance (Clear) Urine pH (5.0-8.0) Ur Specific [place] (1.001-1.035) Urine Protein (Negative) Urine Glucose (UA) (Negative) Urine Ketones (Negative) Urine Blood (Negative) Urine Nitrite (Negative) Urine Bilirubin (Negative) Urine Urobilinogen (<2.0) mg/dL Ur Leukocyte Esterase (Negative) Urine RBC (0-5) /hpf Urine WBC (0-5) /hpf Hyaline Casts (0-2) /lpf Urine Mucus (None) /hpf 06/03/19 Range/Units 19:45 WBC (3.8-10.6) k/uL RBC (3.80-5.40) m/uL Hgb (11.4-16.0) gm/dL Hct (34.0-46.0) % MCV (80.0-100.0) fL MCH (25.0-35.0) pg MCHC (31.0-37.0) g/dL RDW (11.5-15.5) % Plt Count (150-450) k/uL Neutrophils % % Lymphocytes % % Monocytes % % Eosinophils % % Basophils % % Neutrophils # (1.3-7.7) k/uL Lymphocytes # (1.0-4.8) k/uL Monocytes # (0-1.0) k/uL Eosinophils # (0-0.7) k/uL Basophils # (0-0.2) k/uL Hypochromasia Anisocytosis PT (9.0-12.0) sec INR (<1.2) APTT (22.0-30.0) sec D-Dimer (<0.60) mg/L FEU VBG pH (7.31-7.41) VBG pCO2 (37-51) mmHg VBG HCO3 (24-28) mmol/L Sodium (137-145) mmol/L Potassium (3.5-5.1) mmol/L Chloride (98-107) mmol/L Carbon Dioxide (22-30) mmol/L Anion Gap mmol/L BUN (7-17) mg/dL Creatinine (0.52-1.04) mg/dL Est GFR (CKD-EPI)AfAm (>60 ml/min/1.73 sqM) Est GFR (CKD-EPI)NonAf (>60 ml/min/1.73 sqM) Glucose (74-99) mg/dL Calcium (8.4-10.2) mg/dL Magnesium (1.6-2.3) mg/dL Total Bilirubin (0.2-1.3) mg/dL AST (14-36) U/L ALT (9-52) U/L Alkaline Phosphatase (38-126) U/L Troponin I (0.000-0.034) ng/mL NT-Pro-B Natriuret Pep pg/mL Total Protein (6.3-8.2) g/dL Albumin (3.5-5.0) g/dL Urine Color Light Yellow Urine Appearance Clear (Clear) Urine pH 5.0 (5.0-8.0) Ur Specific [place] 1.025 (1.001-1.035) Urine Protein Negative (Negative) Urine Glucose (UA) Negative (Negative) Urine Ketones Negative (Negative) Urine Blood Trace H (Negative) Urine Nitrite Negative (Negative) Urine Bilirubin Negative (Negative) Urine Urobilinogen <2.0 (<2.0) mg/dL Ur Leukocyte Esterase Negative (Negative) Urine RBC 2 (0-5) /hpf Urine WBC 2 (0-5) /hpf Hyaline Casts 1 (0-2) /lpf Urine Mucus Rare H (None) /hpf Critical Care Time Critical Care Time: Yes Total Critical Care Time: 33 Disposition Clinical Impression: Heart failure Disposition: ADMITTED IP TO THIS [facility] Condition: Fair Referrals: Rome Astudillo MD [Primary Care Provider] - 1-2 days Decision Time: 20:53
[2019-06-03 16:49] LABS: INR 0.9 (<1.2); Partial Thromboplastin Time 23.5 sec (22.0-30.0); Prothrombin Time 9.9 sec (9.0-12.0)
[2019-06-03 17:28] LABS: D-Dimer 1.33 mg/L FEU (<0.60)
--- NOTE | 2019-06-03 18:57 | US ---
EXAMINATION TYPE: US venous doppler duplex LE DATE OF EXAM: 06/03/2019 6:48 PM COMPARISON: US CLINICAL HISTORY: evaluate for DVT. Evaluate for DVT. HX DVT. Pt takes aspirin. [place] filter. SIDE PERFORMED: Bilateral TECHNIQUE: The lower extremity deep venous system is examined utilizing real time linear array sonog lili with graded compression, doppler sonography and color-flow sonography. VESSELS IMAGED: External Iliac Vein (EIV) Common Femoral Vein Deep Femoral Vein Greater Saphenous Vein * Femoral Vein Popliteal Vein Small Saphenous Vein * Proximal Calf Veins (* superficial vessels) Limited study due to body habitus, edema, and technical limitations. Right Leg: Thready flow seen in mid portion of the right femoral vein. Possible thrombus in this are a. Limited evaluation of femoral vein due to patient body habitus and technical limitations. Patient could not tolerate compression of mid and distal femoral vein. Left Leg: No evidence of DVT in veins imaged from prox calf veins to CFV. EIV not visualized. . IMPRESSION: No evidence of deep venous thrombosis in the left leg. There is evidence for some chronic deep venous thrombosis in the right leg in the femoral vein
--- NOTE | 2019-06-03 19:20 | CT ---
EXAMINATION TYPE: CT angio chest DATE OF EXAM: 06/03/2019 7:11 PM COMPARISON: 03/01/2019 HISTORY: SOB CT DLP: 984.2 mGycm Automated exposure control for dose reduction was used. CONTRAST: CTA scan of the thorax is performed with IV Contrast, patient injected with 100 mL of Isovue 300, pul monary embolism protocol. There are 3-D post processed images.. FINDINGS: There is patchy infiltrate and atelectasis in the posterior lung redman. There is very small left ple ural effusion. There is thickening of the left and right adrenal gland consistent with hypertrophy. Heart is slightly enlarged. There is no pericardial effusion. There are no hilar masses. There is nor mal contrast opacification of the pulmonary arteries. There are no filling defects. There is multiple paratracheal and anterior mediastinal lymph nodes that measure up to 2 cm. Thoracic aorta shows athe romatous change. There is no aneurysm or dissection. IMPRESSION: NO EVIDENCE OF PULMONARY EMBOLISM. BILATERAL LOWER LOBE PULMONARY INFILTRATES AND ATELECTASIS ARE NEW COMPARED TO OLD EXAM. THERE IS INC REASED MEDIASTINAL AND BRONCHIAL ADENOPATHY COMPARED TO OLD EXAM.
[2019-06-03] MEDS ORDERED: cefTRIAXone IN SWFI 1,000 MG/10 ML SYRINGE IVP STA (19:42)
[2019-06-03] MEDS ORDERED: AZITHROMYCIN 500 MG in SODIUM CHLORIDE 0.9% 250 ML IVPB STA (19:42)
[2019-06-03 20:19] LABS: Appearance,Urine Clear (Clear); Bilirubin,Urine Negative (Negative); Blood,Urine Trace (Negative); Color,Urine Light Yellow; Glucose,Urine (UA) Negative (Negative); Hyaline Casts,Urine 1 /lpf (0-2); Ketones,Urine Negative (Negative); Leukocyte Esterase,Urine Negative (Negative); Mucus,Urine Rare /hpf; Nitrite,Urine Negative (Negative); Protein,Urine Negative (Negative); RBC,Urine 2 /hpf (0-5); Specific Gravity,Urine 1.025 (1.001-1.035); Urobilinogen,Urine <2.0 mg/dL (<2.0)
[2019-06-03] MEDS ORDERED: metFORMIN 500 MG TAB PO SCH (21:00)
[2019-06-03] MEDS: SODIUM CHLORIDE 0.9% 1,000 ML IV SCH (21:14)
[2019-06-03 22:40] LABS: Glucose,Whole Blood 102 mg/dL (75-99)
[2019-06-03] MEDS ORDERED: ACETAMINOPHEN TAB 325 MG TAB PO PRN (22:50)
[2019-06-03] MEDS: LISINOPRIL 20 MG TAB PO SCH (23:02)
[2019-06-03] MEDS: ATORVASTATIN 20 MG TAB PO SCH (23:02)
[2019-06-03] MEDS: METOPROLOL TARTRATE 50 MG TAB PO SCH (23:02)
[2019-06-03] MEDS: PHENYTOIN SODIUM EXTENDED 100 MG CAP PO SCH (23:03)
[2019-06-03] MEDS: PANTOPRAZOLE 40 MG TABLET PO SCH (23:04)
[2019-06-03] MEDS: FUROSEMIDE 10 MG/ML 4 ML VIAL IV SCH (23:06)
[2019-06-04 06:13] LABS: Glucose,Whole Blood 105 mg/dL (75-99)
[2019-06-04] MEDS: INSULIN ASPART (NovoLOG) 100 UNIT/ML VIAL SQ SCH ×4 (06:15→21:28)
[2019-06-04] MEDS: glipiZIDE 5 MG TAB PO SCH ×2 (06:45→17:27)
[2019-06-04] MEDS ORDERED: ALBUTEROL NEBULIZED 2.5 MG/3 ML INHALATION SCH (08:00)
[2019-06-04] MEDS: FUROSEMIDE 10 MG/ML 4 ML VIAL IV SCH ×3 (08:59→23:33)
[2019-06-04] MEDS ORDERED: LISINOPRIL 2.5 MG TAB PO SCH (09:00)
[2019-06-04] MEDS: amLODIPine 5 MG TAB PO SCH (09:42)
[2019-06-04] MEDS: CITALOPRAM HYDROBROMIDE 20 MG TAB PO SCH (09:42)
[2019-06-04] MEDS: METOPROLOL TARTRATE 50 MG TAB PO SCH ×2 (09:43→21:28)
[2019-06-04] MEDS: LISINOPRIL 20 MG TAB PO SCH ×2 (09:43→21:27)
[2019-06-04] MEDS: PANTOPRAZOLE 40 MG TABLET PO SCH (09:48)
[2019-06-04] MEDS: PHENYTOIN SODIUM EXTENDED 100 MG CAP PO SCH ×3 (09:49→21:27)
--- NOTE | 2019-06-04 11:08 | P.CRDCN ---
History of Present Illness Consult date: 06/04/19 Requesting physician: Rome Astudillo Consult reason: chest pain, shortness of breath Chief complaint: Chest pain and shortness of breath History of present illness: This is a 59-year-old female who follows with Dr. Lane in the office, she seen him most recently in the office on Friday. She has history of severe COPD, home O2, nicotine dependence, pulmonary hypertension, severe aortic stenosis, obesity, diabetes, hypertension, hyperlipidemia, peripheral vascular disease. Patient has been having frequent episodes of chest discomfort with associated difficulty in breathing. It was recommended by Dr. Lane that the patient undergo a GAVIOTA with subsequent cardiac catheterization. Patient was quite anxious to have this procedure performed, which is why it has been scheduled a week out. It is actually scheduled on the of this month. Patient presents to the hospital on this occasion with symptoms of recurrent chest discomfort and worsening in her breathing. She states that she's been using nitroglycerin on a daily basis, she ran out of it yesterday. Chest x-ray showed moderate pulmonary edema, change as compared with prior exam. Venous duplex study was performed, no evidence of DVT in the left leg, thready flow seen in the midportion of the right femoral vein. Possible thrombus in this area. Limited evaluation of the femoral vein due to patient body habitus. CT of the chest did not reveal evidence of a pulmonary embolism. Bilateral lower lobe pulmonary infiltrates and atelectasis new as compared with prior exam. There is some increased mediastinal and bronchial adenopathy as compared with old exam. EKG shows a sinus tachycardia with inferior lateral ST depression. Blood pressure 128/60 with a heart rate in the 80s, 92% on room air. White blood cell count 11.2, hemoglobin 10.3, platelet count 367. D-dimer 1.3, pH 7.3, pCO2 62, HCO3 30. Sodium 141, potassium 4.9, BUN 29, creatinine 0.6. Troponin 0.012. BNP level 414. Patient was initiated on IV Lasix in the emergency room along with IV nitroglycerin drip. The patient has been putting o ut excellent urine since the Lasix started. She continues to feel short of breath, unable to lie flat. Past Medical History Past Medical History: Asthma, Heart Failure, COPD, CVA/TIA, Diabetes Mellitus, Deep Vein Thrombosis (DVT), GERD/Reflux, Hyperlipidemia, Hypertension, Memory Impairment, Pneumonia, Seizure Disorder, Sleep Apnea/CPAP/BIPAP Additional Past Medical History / Comment(s): obesity, subarachniod hemorrhage 2004, emphysema History of Any Multi-Drug Resistant Organisms: None Reported Past Surgical History: Adenoidectomy, Tonsillectomy Additional Past Surgical History / Comment(s): craniotomy 2005, tonsillectomy, wisdom teeth out , joby filter Past Anesthesia/Blood Transfusion Reactions: No Reported Reaction Past Psychological History: Depression Smoking Status: Current every day smoker Past Alcohol Use History: None Reported Past Drug Use History: None Reported - Past Family History Father Family Medical History: COPD, Coronary Artery Disease (CAD), CVA/TIA, Diabetes Mellitus, Hypertension Mother Family Medical History: COPD, Diabetes Mellitus, Hypertension Sister(s) Family Medical History: No Reported History Medications and Allergies Home Medications Medication Instructions Recorded Confirmed Type Citalopram Hydrobromide [CeleXA] 20 mg PO DAILY 05/25/15 06/03/19 History Enalapril [Vasotec] 10 mg PO BID 05/25/15 06/03/19 History Furosemide [Lasix] 40 mg PO BID 05/25/15 06/03/19 History Metoprolol Tartrate [Lopressor] 75 mg PO BID 05/25/15 06/03/19 History Phenytoin Sodium Extended 200 mg PO TID 05/25/15 06/03/19 History [Dilantin] Simvastatin [Zocor] 40 mg PO HS 05/25/15 06/03/19 History glipiZIDE XL [Glucotrol XL] 10 mg PO DAILY 05/25/15 06/03/19 History metFORMIN HCL 1,000 mg PO BID 05/25/15 06/03/19 History amLODIPine [Norvasc] 5 mg PO DAILY #30 tab 06/01/15 06/03/19 Rx Isosorbide Mononitrate ER [Imdur] 30 mg PO DAILY 06/03/19 06/03/19 History Lisinopril [Zestril] 2.5 mg PO DAILY 06/03/19 06/03/19 History Omeprazole [PriLOSEC] 10 mg PO BID 06/03/19 06/03/19 History Allergies Allergy/AdvReac Type Severity Reaction Status Date / Time codeine Allergy Rash/Hives Verified 06/03/19 16:48 Physical Exam Vitals: Vital Signs Temp Pulse Pulse Resp BP BP Pulse Ox 06/04/19 08:59 98 06/04/19 08:52 94 06/04/19 07:57 97.7 F 82 22 128/61 92 L 06/04/19 04:00 98.0 F 72 20 124/70 97 06/04/19 00:00 98.0 F 82 20 123/89 96 06/03/19 22:22 98.8 F 84 20 126/68 98 06/03/19 22:15 82 20 06/03/19 21:12 80 20 123/56 98 06/03/19 19:26 97.4 F L 86 22 133/67 98 06/03/19 18:24 88 25 H 136/69 100 06/03/19 18:00 89 25 H 126/76 100 06/03/19 17:11 121 H 30 H 178/99 90 L 06/03/19 16:40 122 H 30 H 170/78 90 L 06/03/19 16:33 114 H 06/03/19 16:23 118 H 06/03/19 16:18 26 H 06/03/19 16:09 119 H 22 173/82 89 L Intake and Output 06/03/19 06/04/19 06/04/19 22:59 06:59 14:59 Output Total 1600 1325 Balance -1600 -1325 Output: Urine 1600 1325 Uretheral (Ronquillo) 600 Other: Voiding Method Incontinent Incontinent Indwelling Catheter Indwelling Catheter Weight 117.934 kg 121.5 kg PHYSICAL EXAMINATION: GENERAL: 59-year-old female in no acute distress HEENT: Head is atraumatic, normocephalic. Pupils equal, round. Sclera anicteric. Conjunctiva are clear. Mucous membranes of the mouth are moist. Neck is supple. There is no elevated jugular venous pressure. No carotid bruit is heard. HEART EXAMINATION: S1 S2 1 systolic ejection murmur is heard CHEST EXAMINATION: Lungs reveal rales to bilateral bases with diminished air entry to the bases ABDOMEN: [ Soft, obese, nontender. Bowel sounds are heard. No organomegaly noted]. EXTREMITIES:[ 1+ peripheral pulses with 2-3+ evidence of peripheral edema , evidence of chronic venous stasis and discoloration of the lower extremities Neurologic, patient is alert and oriented 3. . Results 06/03/19 16:16 06/03/19 16:16 Cardiac Enzymes 06/03/19 06/03/19 Range/Units 16:16 16:16 AST 27 (14-36) U/L Troponin I <0.012 (0.000-0.034) ng/mL Coagulation 06/03/19 Range/Units 16:16 PT 9.9 (9.0-12.0) sec APTT 23.5 (22.0-30.0) sec CBC 06/03/19 Range/Units 16:16 WBC 11.2 H (3.8-10.6) k/uL RBC 3.47 L (3.80-5.40) m/uL Hgb 10.3 L (11.4-16.0) gm/dL Hct 32.5 L (34.0-46.0) % Plt Count 367 (150-450) k/uL Comprehensive Metabolic Panel 06/03/19 Range/Units 16:16 Sodium 141 (137-145) mmol/L Potassium 4.9 (3.5-5.1) mmol/L Chloride 104 (98-107) mmol/L Carbon Dioxide 30 (22-30) mmol/L BUN 29 H (7-17) mg/dL Creatinine 0.60 (0.52-1.04) mg/dL Glucose 208 H (74-99) mg/dL Calcium 8.7 (8.4-10.2) mg/dL AST 27 (14-36) U/L ALT 40 (9-52) U/L Alkaline Phosphatase 128 H (38-126) U/L Total Protein 7.7 (6.3-8.2) g/dL Albumin 4.1 (3.5-5.0) g/dL Current Medications Generic Name Dose Route Start Last Admin Trade Name Freq PRN Reason Stop Dose Admin Acetaminophen 650 mg 06/03/19 22:50 Tylenol Tab PO Q6HR PRN Fever and/ or Pain Albuterol Sulfate 2.5 mg 06/04/19 08:00 06/04/19 08:52 Ventolin Nebulized INHALATION 2.5 mg RT-QID FINA Administration Amlodipine Besylate 5 mg 06/04/19 09:00 06/04/19 09:42 Norvasc PO 5 mg DAILY FINA Administration Atorvastatin Calcium 20 mg 06/03/19 21:00 06/03/19 23:02 Lipitor PO Not Given HS [facility] Citalopram Hydrobromide 20 mg 06/04/19 09:00 06/04/19 09:42 Celexa PO 20 mg DAILY FINA Administration Furosemide 40 mg 06/04/19 00:00 06/04/19 08:59 Lasix IV 40 mg Q8H FINA Administration Glipizide 5 mg 06/04/19 07:30 06/04/19 06:45 Glucotrol PO 5 mg AC-BID FINA Administration Nitroglycerin/Dextrose 50 mg/ 250 mls @ 3 mls/hr 06/03/19 16:29 06/03/19 16:34 IV Solution IV 06/04/19 16:28 10 mcg/min .Q24H ONE 3 mls/hr Administration Protocol 10 MCG/MIN Sodium Chloride 1,000 mls @ 20 mls/hr 06/03/19 21:00 06/03/19 21:14 Saline 0.9% IV 20 mls/hr .Q24H FINA Administration Insulin Aspart 0 unit 06/04/19 07:30 06/04/19 06:15 Novolog SQ Not Given ACHS [facility] Protocol Isosorbide Mononitrate 30 mg 06/04/19 09:00 Imdur PO DAILY [facility] Lisinopril 20 mg 06/03/19 21:00 06/04/19 09:43 Zestril PO 20 mg BID [facility]INA Administration Metoprolol Tartrate 75 mg 06/03/19 21:00 06/04/19 09:43 Lopressor PO 75 mg BID [facility]AN Administration Pantoprazole Sodium 40 mg 06/03/19 23:00 06/04/19 09:48 Protonix PO 40 mg DAILY [facility] Administration Phenytoin Sodium 200 mg 06/03/19 22:00 06/04/19 09:49 Dilantin PO 200 mg TID [facility] Administration Intake and Output 06/03/19 06/04/19 06/04/19 22:59 06:59 14:59 Output Total 1600 1325 Balance -1600 -1325 Output: Urine 1600 1325 Uretheral (Ronquillo) 600 Other: Voiding Method Incontinent Incontinent Indwelling Catheter Indwelling Catheter Weight 117.934 kg 121.5 kg 06/03/19 16:16 06/03/19 16:16 EKG Interpretations (text) EKG shows a sinus tachycardia with inferior lateral ST depression. Assessment and Plan Plan: Assessment and plan #1 congestive heart failure, diastolic acute on chronic, chest x-ray shows pulmonary edema, CTA of the chest suggests possible infiltrate #2 chest pain, with some atypical features for acute coronary syndrome. EKG shows a sinus tachycardia with inferior lateral ST depression. #3 diabetes #4 hypertension #5 hyperlipidemia #6 peripheral vascular disease #7 COPD #8 nicotine dependence #9 severe aortic stenosis Plan We will obtain the echo just performed at [facility]. Patient was scheduled as an outpatient to undergo a GAVIOTA and cardiac catheterization on the . At this point in time we'll continue to diuresis and optimize the patient's breathing, prior to discharge schedule patient for GAVIOTA and cardiac catheterization. Further recommendations to follow. DNP note has been reviewed, I agree with a documented findings and plan of care. Patient was seen and examined.
[2019-06-04] MEDS: ISOSORBIDE MONONITRATE ER 30 MG TAB.ER.24H PO SCH (11:39)
[2019-06-04] MEDS: ALPRAZolam 0.25 MG TAB PO PRN (11:48)
[2019-06-04 11:58] LABS: Glucose,Whole Blood 104 mg/dL (75-99)
[2019-06-04] MEDS: IPRATROPIUM-ALBUTEROL 3 ML NEB INHALATION SCH ×3 (12:10→19:18)
[2019-06-04] MEDS: methylPREDNISolone SOD SUCCI 40 MG/ML 1 ML VIAL IV SCH ×3 (12:25→23:33)
[2019-06-04 13:09] VITALS: BMI 45.9
--- NOTE | 2019-06-04 13:40 | P.HPIM ---
History of Present Illness H&P Date: 06/04/19 Chief Complaint: Difficulty breathing, chest pain This is a 59-year-old female with history of CHF, chronic intermittent asthma, hypertension, COPD, diabetes, diabetic neuropathy, obesity with obstructive sleep apnea on a CPAP, hyperlipidemia, CVA/TIA, DVT, gastroesophageal reflux disease, seizure disorder, subarachnoid hemorrhage 2004 with short-term memory deficit, DVT, inferior vena cava filter placement, ongoing nicotine dependence and multiple other medical issues. Presented to the ER via EMS with substernal crushing chest pain, radiating to right upper arm, and bilateral jaws accompanied by shortness of breath 48 hours and bilateral lower extremity edema. Unable to lie flat. Reports daily use of nitroglycerin and ran out of it yesterday. Hypoxic on EMS arrival, oxygen placed. Prehospital EKG reported diffuse ST segment depression. On arrival to the ER patient was maintaining O2 sats of 89% on 15 L nonrebreather, blood pressure 173/82, tachycardic heart rates in the 110s. EKG in the ER reported sinus tachycardia, inferior lateral ST depression. Troponin negative 1.BNP 400. Recently at cardiology's office, echo performed/being obtained. Cardiology recommended GAVIOTA and cardiac catheterization, patient postponed it. Aspirin administered, Nitroglycerin drip initiated. D-dimer 1.3, coag panel negative. Venous Doppler reported no evidence of DVT in the left leg, evidence for chronic DVT in the right leg in the femoral vein Hemoglobin 10.3 ABGs noted with pH 7.3, CO2 62, bicarb 30. UA negative, mild leukocytosis of 11.2, afebrile. Heparin drip and not initiated secondary to patient's history of intracranial bleed, as recommended per int ensivist. Chest x-ray reporting moderate pulmonary edema with no definite pleural effusions .Pulmonary embolism ruled out per CTA, bilateral lower lobe infiltrates and atelectasis with increased mediastinal and bronchial adenopathy; multiple paratracheal and anterior mediastinal lymph nodes measuring up to 2 cm, thickening of left and right adrenal gland consistent with hypertrophy reported. Antibiotics given. Cardiology and pulmonary consulted. Evaluated by cardiology with recommendations noted and appreciated. Currently diuresing on Lasix IV push, maintaining O2 sats in the high 80s to low 90s on 5 L of nasal cannula, continues on nitroglycerin drip. BUN 29 creatinine 0.6. Review of Systems ROS Statement: Those systems with pertinent positive or pertinent negative responses have been documented in the HPI. ROS Other: All systems not noted in ROS Statement are negative. Past Medical History Past Medical History: Asthma, Heart Failure, COPD, CVA/TIA, Diabetes Mellitus, D eep Vein Thrombosis (DVT), GERD/Reflux, Hyperlipidemia, Hypertension, Memory Impairment, Pneumonia, Seizure Disorder, Sleep Apnea/CPAP/BIPAP Additional Past Medical History / Comment(s): obesity, subarachniod hemorrhage 2004, emphysema History of Any Multi-Drug Resistant Organisms: None Reported Past Surgical History: Adenoidectomy, Tonsillectomy Additional Past Surgical History / Comment(s): craniotomy 2004, tonsillectomy, wisdom teeth out , joby filter Past Anesthesia/Blood Transfusion Reactions: No Reported Reaction Past Psychological History: Depression Smoking Status: Current every day smoker Past Alcohol Use History: None Reported Past Drug Use History: None Reported - Past Family History Father Family Medical History: COPD, Coronary Artery Disease (CAD), CVA/TIA, Diabetes Mellitus, Hypertension Mother Family Medical History: COPD, Diabetes Mellitus, Hypertension Sister(s) Family Medical History: No Reported History Medications and Allergies Home Medications Medication Instructions Recorded Confirmed Type Citalopram Hydrobromide [CeleXA] 20 mg PO DAILY 05/25/15 06/03/19 History Enalapril [Vasotec] 10 mg PO BID 05/25/15 06/03/19 History Furosemide [Lasix] 40 mg PO BID 05/25/15 06/03/19 History Metoprolol Tartrate [Lopressor] 75 mg PO BID 05/25/15 06/03/19 History Phenytoin Sodium Extended 200 mg PO TID 05/25/15 06/03/19 History [Dilantin] Simvastatin [Zocor] 40 mg PO HS 05/25/15 06/03/19 History glipiZIDE XL [Glucotrol XL] 10 mg PO DAILY 05/25/15 06/03/19 History metFORMIN HCL 1,000 mg PO BID 05/25/15 06/03/19 History amLODIPine [Norvasc] 5 mg PO DAILY #30 tab 06/01/15 06/03/19 Rx Isosorbide Mononitrate ER [Imdur] 30 mg PO DAILY 06/03/19 06/03/19 History Lisinopril [Zestril] 2.5 mg PO DAILY 06/03/19 06/03/19 History Omeprazole [PriLOSEC] 10 mg PO BID 06/03/19 06/03/19 History Allergies Allergy/AdvReac Type Severity Reaction Status Date / Time codeine Allergy Rash/Hives Verified 06/03/19 16:48 Physical Exam Vitals: Vital Signs Temp Pulse Pulse Resp BP BP Pulse Ox 06/04/19 08:59 98 06/04/19 08:52 94 06/04/19 07:57 97.7 F 82 22 128/61 92 L 06/04/19 07:55 82 06/04/19 07:50 82 22 06/04/19 04:00 98.0 F 72 20 124/70 97 06/04/19 00:00 98.0 F 82 20 123/89 96 06/03/19 22:22 98.8 F 84 20 126/68 98 06/03/19 22:15 82 20 06/03/19 21:12 80 20 123/56 98 06/03/19 19:26 97.4 F L 86 22 133/67 98 06/03/19 18:24 88 25 H 136/69 100 06/03/19 18:00 89 25 H 126/76 100 06/03/19 17:11 121 H 30 H 178/99 90 L 06/03/19 16:40 122 H 30 H 170/78 90 L 06/03/19 16:33 114 H 06/03/19 16:23 118 H 06/03/19 16:18 26 H 06/03/19 16:09 119 H 22 173/82 89 L Intake and Output 06/03/19 06/04/19 06/04/19 22:59 06:59 14:59 Intake Total 240 Output Total 1600 1325 Balance -1600 -1325 240 Intake: Oral 240 Output: Urine 1600 1325 Uretheral (Ronquillo) 600 Other: Voiding Method Incontinent Incontinent Incontinent Indwelling Catheter Indwelling Catheter Indwelling Catheter Weight 117.934 kg 121.5 kg PHYSICAL EXAM: VITAL SIGNS: As above GENERAL: Sitting up at side of bed, no acute distress, resting effort increased HEENT: Conjunctivae normal. eyes normal. Oral mucosa moist NECK: No JVD. No thyroid enlargement. No LNs CARDIOVASCULAR: S1, S2 regular. Positive systolic murmur. RESPIRATION: Labored, Breath sounds diminished in the bases. No rhonchi or crackles. Positive expiratory wheezing. ABDOMEN: Soft, obese, nontender . No guarding. no masses palpable. No ascites, No hepatosplenomegaly.Bowel sounds heard. LEGS: Positive edema, dry, scaly, discolored -chronic venous stasis PSYCHIATRY: Alert and oriented X3, mood and affect normal. NERVOUS SYSTEM: Cranial N 2-12 grossly normal. Short-term memory deficit .Moves all 4 limbs. Diffuse weakness No focal deficits. Strength and sensation grossly intact.. Skin: no lesions, no rash. No calf tenderness Lymphatic system. No LN neck axilla. Results CBC & Chem 7: 06/03/19 16:16 06/03/19 16:16 Labs: Abnormal Lab Results - Last 24 Hours (Table) 06/03/19 06/03/19 06/03/19 Range/Units 16:16 16:16 16:16 WBC 11.2 H (3.8-10.6) k/uL RBC 3.47 L (3.80-5.40) m/uL Hgb 10.3 L (11.4-16.0) gm/dL Hct 32.5 L (34.0-46.0) % RDW 16.0 H (11.5-15.5) % Neutrophils # 9.5 H (1.3-7.7) k/uL D-Dimer 1.33 H (<0.60) mg/L FEU VBG pCO2 (37-51) mmHg VBG HCO3 (24-28) mmol/L BUN 29 H (7-17) mg/dL Glucose 208 H (74-99) mg/dL POC Glucose (mg/dL) (75-99) mg/dL Alkaline Phosphatase 128 H (38-126) U/L Urine Blood (Negative) Urine Mucus (None) /hpf 06/03/19 06/03/19 06/03/19 Range/Units 16:27 19:45 22:38 WBC (3.8-10.6) k/uL RBC (3.80-5.40) m/uL Hgb (11.4-16.0) gm/dL Hct (34.0-46.0) % RDW (11.5-15.5) % Neutrophils # (1.3-7.7) k/uL D-Dimer (<0.60) mg/L FEU VBG pCO2 62 H (37-51) mmHg VBG HCO3 30 H (24-28) mmol/L BUN (7-17) mg/dL Glucose (74-99) mg/dL POC Glucose (mg/dL) 102 H (75-99) mg/dL Alkaline Phosphatase (38-126) U/L Urine Blood Trace H (Negative) Urine Mucus Rare H (None) /hpf 06/04/19 Range/Units 06:11 WBC (3.8-10.6) k/uL RBC (3.80-5.40) m/uL Hgb (11.4-16.0) gm/dL Hct (34.0-46.0) % RDW (11.5-15.5) % Neutrophils # (1.3-7.7) k/uL D-Dimer (<0.60) mg/L FEU VBG pCO2 (37-51) mmHg VBG HCO3 (24-28) mmol/L BUN (7-17) mg/dL Glucose (74-99) mg/dL POC Glucose (mg/dL) 105 H (75-99) mg/dL Alkaline Phosphatase (38-126) U/L Urine Blood (Negative) Urine Mucus (None) /hpf Thrombosis Risk Factor Assmnt - Choose All That Apply Any of the Below Risk Factors Present?: Yes Each Factor Represents 1 point: Abnormal pulmonary function (COPD), Age 41-60 years Other Risk Factors: No Other congenital or acquired thrombophilia - If yes, enter type in comment: No Thrombosis Risk Factor Assessment Total Risk Factor Score: 2 Thrombosis Risk Factor Assessment Level: Low Risk Assessment and Plan Assessment: -Acute on chronic CHF exacerbation, diastolic dysfunction - Possible bilateral lower lobe pulmonary infiltrates, possible community- acquired pneumonia -Chest pain, rule out acute coronary syndrome. EKG revealing sinus tachycardia with inferior lateral ST depression. -Severe aortic stenosis -Bibasilar atelectasis -Acute on chronic hypoxic, hypercapnic respiratory failure -Chronic persistent asthma -COPD -History of CVA/TIA -Diabetes mellitus -Gastroesophageal reflux disease -History of DVT, chronic DVT of the right femoral vein per Doppler -Hypertension -Hyperlipidemia -Seizure disorder -Sleep apnea, on CPAP -Subarachnoid hemorrhage with short-term memory deficit -Ongoing nicotine dependence -Morbid obesity, BMI 46 -Depression -Increased mediastinal and bronchial adenopathy, compared to prior exam Plan: Continue current medication regime ,monitoring and symptomatic treatment. Maintain Lasix IV push for diuresing, nitroglycerin drip. Recent echo being obtained from office.John Paul droantes.Smoking cessation readdressed. Follow closely with cardiology. Pulmonary consult in place with recommendations pending. Home meds have been reviewed and resumed accordingly. GI prophylaxis in place. The impression and plan of care has been dictated as directed. : I performed a history and examination of this patient, discussed the same with the dictator. I agree with the dictator's note ,documented as a scribe. Any additional findings or plans will be noted. Time taken: 35 minutes
[2019-06-04 14:38] LABS: Hemoglobin A1C 5.7 % (4.0-6.0)
--- NOTE | 2019-06-04 15:13 | P.CONS ---
History of Present Illness - Chief Complaint Medical debility - History of Present Illness I had the opportunity to see patient for inpatient rehab consultation with regard to medical debility. She was admitted to [facility] yesterday with shortness of breath and COPD exacerbation. Chest x-ray demonstrates moderate edema. Lower extremity Doppler negative on left and patient could not tolerate and right. Chest CTA with bilateral lower infiltrates and atelectasis. PT and OT prescribed. Seen in consultation by cardiology. Previous functional history as elicited from patient: 60-year-old right-handed white female single lives in a first-floor apartment alone. Retired. Describes independent with own cooking, laundry, driving, standing shower and gait with standard cane. Dr. Astudillo is regular doctor. Patient smokes a pack per day and denies alcohol. Family history both parents with pulmonary and cardiac disease. Review of Systems Review of systems: Skin: Hyperkeratotic lesions forelegs. ENT: Denies sneezes or discharge. Eyes: Denies discharge or photophobia. Cardiac: Denies chest pain or palpitation. Pulmonary: Moderate shortness of breath. Breast: Denies discharge or lumps. Gastrointestinal: Denies nausea, emesis, constipation, diarrhea. Genitourinary: Denies discharge or frequency. Musculoskeletal: Denies muscle or bone aches. Neurologic: Mild to moderate generalized weakness. Endocrine: Denies shakes or sweats. Oncology: Denies cancers. Dermatologic: Denies rash, itching, pruritus. ALLERGY/immunology: Denies sneezes, rashes. Past Medical History Past Medical History: Asthma, Heart Failure, COPD, CVA/TIA, Diabetes Mellitus, Deep Vein Thrombosis (DVT), GERD/Reflux, Hyperlipidemia, Hypertension, Memory Impairment, Pneumonia, Seizure Disorder, Sleep Apnea/CPAP/BIPAP Additional Past Medical History / Comment(s): obesity, subarachniod hemorrhage 2005, emphysema History of Any Multi-Drug Resistant Organisms: None Reported Past Surgical History: Adenoidectomy, Tonsillectomy Additional Past Surgical History / Comment(s): craniotomy 2005, tonsillectomy, wisdom teeth out , joby filter Past Anesthesia/Blood Transfusion Reactions: No Reported Reaction Past Psychological History: Depression Smoking Status: Current every day smoker Past Alcohol Use History: None Reported Past Drug Use History: None Reported - Past Family History Father Family Medical History: COPD, Coronary Artery Disease (CAD), CVA/TIA, Diabetes Mellitus, Hypertension Mother Family Medical History: COPD, Diabetes Mellitus, Hypertension Sister(s) Family Medical History: No Reported History Medications and Allergies Home Medications Medication Instructions Recorded Confirmed Type Citalopram Hydrobromide [CeleXA] 20 mg PO DAILY 05/25/15 06/03/19 History Enalapril [Vasotec] 10 mg PO BID 05/25/15 06/03/19 History Furosemide [Lasix] 40 mg PO BID 05/25/15 06/03/19 History Metoprolol Tartrate [Lopressor] 75 mg PO BID 05/25/15 06/03/19 History Phenytoin Sodium Extended 200 mg PO TID 05/25/15 06/03/19 History [Dilantin] Simvastatin [Zocor] 40 mg PO HS 05/25/15 06/03/19 History glipiZIDE XL [Glucotrol XL] 10 mg PO DAILY 05/25/15 06/03/19 History metFORMIN HCL 1,000 mg PO BID 05/25/15 06/03/19 History amLODIPine [Norvasc] 5 mg PO DAILY #30 tab 06/01/15 06/03/19 Rx Isosorbide Mononitrate ER [Imdur] 30 mg PO DAILY 06/03/19 06/03/19 History Lisinopril [Zestril] 2.5 mg PO DAILY 06/03/19 06/03/19 History Omeprazole [PriLOSEC] 10 mg PO BID 06/03/19 06/03/19 History Allergies Allergy/AdvReac Type Severity Reaction Status Date / Time codeine Allergy Rash/Hives Verified 06/03/19 16:48 Physical Exam Vitals: Vital Signs Temp Pulse Pulse Resp BP BP BP 06/04/19 12:00 76 21 06/04/19 11:55 98.4 F 76 21 127/67 06/04/19 08:59 98 06/04/19 08:52 94 06/04/19 07:57 97.7 F 82 22 128/61 06/04/19 07:55 82 21 06/04/19 07:50 82 22 06/04/19 04:00 98.0 F 72 20 124/70 06/04/19 00:00 98.0 F 82 20 123/89 06/03/19 22:22 98.8 F 84 20 126/68 06/03/19 22:15 82 20 06/03/19 21:12 80 20 123/56 06/03/19 19:26 97.4 F L 86 22 133/67 06/03/19 18:24 88 25 H 136/69 06/03/19 18:00 89 25 H 126/76 06/03/19 17:11 121 H 30 H 178/99 06/03/19 16:40 122 H 30 H 170/78 06/03/19 16:33 114 H 06/03/19 16:23 118 H 06/03/19 16:18 26 H 06/03/19 16:09 119 H 22 173/82 Pulse Ox 06/04/19 12:00 06/04/19 11:55 06/04/19 08:59 06/04/19 08:52 06/04/19 07:57 92 L 06/04/19 07:55 06/04/19 07:50 06/04/19 04:00 97 06/04/19 00:00 96 06/03/19 22:22 98 06/03/19 22:15 06/03/19 21:12 98 06/03/19 19:26 98 06/03/19 18:24 100 06/03/19 18:00 100 06/03/19 17:11 90 L 06/03/19 16:40 90 L 06/03/19 16:33 06/03/19 16:23 06/03/19 16:18 06/03/19 16:09 89 L Intake and Output 06/04/19 06/04/19 06/04/19 06:59 14:59 22:59 Intake Total 480 Output Total 1325 1715 Balance -1325 -1235 Intake: Oral 480 Output: Urine 1325 1715 Other: Voiding Method Incontinent Indwelling Catheter Indwelling Catheter Weight 121.5 kg 121.5 kg Skin: Hyperkeratotic lesions forelegs. General: Obese build and comfortable appearance. Head: Normocephalic, atraumatic. Eyes: Symmetric. Pupils equal round. Ears: Symmetric. Hearing within normal limits. Mouth: Clear. Neck: Supple. Carotid without bruit. Cardiac: Regular rate and rhythm. Lungs: Receiving respiratory treatment. Breathing comfortably and symmetricall y. Abdomen: Soft active nontender. Extremities: Normal tone. Neurological: Mental status: Alert, cooperative, pleasant. Cranial nerves: Symmetric facial tone and trapezius. Motor: Actively elevates arms off of bed in legs are at best antigravity. Sensation: Intact throughout. DTRs: Symmetric and equal throughout. Mobility: Requires assistance for bed mobility. Results CBC & Chem 7: 06/03/19 16:16 06/03/19 16:16 Labs: Abnormal Lab Results - Last 24 Hours (Table) 06/03/19 06/03/19 06/03/19 Range/Units 16:16 16:16 16:16 WBC 11.2 H (3.8-10.6) k/uL RBC 3.47 L (3.80-5.40) m/uL Hgb 10.3 L (11.4-16.0) gm/dL Hct 32.5 L (34.0-46.0) % RDW 16.0 H (11.5-15.5) % Neutrophils # 9.5 H (1.3-7.7) k/uL D-Dimer 1.33 H (<0.60) mg/L FEU VBG pCO2 (37-51) mmHg VBG HCO3 (24-28) mmol/L BUN 29 H (7-17) mg/dL Glucose 208 H (74-99) mg/dL POC Glucose (mg/dL) (75-99) mg/dL Alkaline Phosphatase 128 H (38-126) U/L Urine Blood (Negative) Urine Mucus (None) /hpf 06/03/19 06/03/19 06/03/19 Range/Units 16:27 19:45 22:38 WBC (3.8-10.6) k/uL RBC (3.80-5.40) m/uL Hgb (11.4-16.0) gm/dL Hct (34.0-46.0) % RDW (11.5-15.5) % Neutrophils # (1.3-7.7) k/uL D-Dimer (<0.60) mg/L FEU VBG pCO2 62 H (37-51) mmHg VBG HCO3 30 H (24-28) mmol/L BUN (7-17) mg/dL Glucose (74-99) mg/dL POC Glucose (mg/dL) 102 H (75-99) mg/dL Alkaline Phosphatase (38-126) U/L Urine Blood Trace H (Negative) Urine Mucus Rare H (None) /hpf 06/04/19 06/04/19 Range/Units 06:11 11:40 WBC (3.8-10.6) k/uL RBC (3.80-5.40) m/uL Hgb (11.4-16.0) gm/dL Hct (34.0-46.0) % RDW (11.5-15.5) % Neutrophils # (1.3-7.7) k/uL D-Dimer (<0.60) mg/L FEU VBG pCO2 (37-51) mmHg VBG HCO3 (24-28) mmol/L BUN (7-17) mg/dL Glucose (74-99) mg/dL POC Glucose (mg/dL) 105 H 104 H (75-99) mg/dL Alkaline Phosphatase (38-126) U/L Urine Blood (Negative) Urine Mucus (None) /hpf Assessment and Plan (1) Heart failure Current Visit: Yes Status: Acute Code(s): I50.9 - HEART FAILURE, UNSPECIFIED SNOMED Code(s): 23007753 (2) Venous stasis ulcer Current Visit: No Status: Acute Code(s): I83.009 - VARICOSE VEINS OF UNSP LOWER EXTREMITY W ULCER OF UNSP SITE; L97.909 - NON-PRS CHRONIC ULC UNSP PRT OF UNSP LOW LEG W UNSP SEVERITY SNOMED Code(s): 616235419 Plan: Impression: 1. Medical debility. 2. COPD exacerbation with history of asthma. 3. Acute on chronic CHF. 4. Lower extremity dermatitis and venostasis ulcers. 5. Morbid obesity. 6. Diabetes. 7. Hypertension. 8. Sleep apnea with CPAP. 9. Memory impairment. Comments and plan: At this time PT and OT are prescribed. We'll follow saleem with yourself and review patient's progress, Friday a.m., if still in hospital.
--- NOTE | 2019-06-04 15:42 | CONS ---
CONSULTATION PULMONARY/CRITICAL CARE CONSULTATION: DATE OF SERVICE: 06/04/2019 This is a 59-year-old female who sees Dr. Astudillo as her primary. She also sees Cardiology, I believe Dr. Downing, and also my partner Dr. Zaragoza for her chronic lung disease. She apparently has a history of heart failure, valvular heart disease, COPD, deep venous thrombosis, a ruptured intracranial aneurysm, among other things. Anyway, she was brought into the emergency room with complaints of shortness of breath and chest pain. The pain is apparently a substernal crushing pressure that radiates into her right upper extremity and her jaws bilaterally. She apparently does have a history of CAD and also valvular heart disease. Apparently the patient was thought not to be a great surgical candidate for her valvular heart disease because of her severe chronic lung disease; in fact, her FEV1 is only 27% of predicted, putting her in the category of GOLD stage IV disease. The patient unfortunately continues to smoke. She does use oxygen at home. She also has a history of sleep apnea syndrome. Anyway, she was admitted with a diagnosis of shortness of breath and also chest pain. She is sitting at the bedside with her sister in the room as well. The sister provides a lot of history because the patient apparently has had short-term memory loss after her ruptured intracranial aneurysm. In the emergency room she did have a chest CTA looking for a pulmonary embolism. There was no evidence of pulmonary embolism. There was evidence of bilateral lower lobe pulmonary infiltrates and some bronchial and mediastinal adenopathy, potentially reactive. In addition she had a venous Doppler of the lower extremities which did not reveal an acute DVT, although there was thready flow seen in the mid portion of the right femoral vein. HOME MEDICATIONS: Her home medications are reviewed. She is on: 1. Celexa. 2. Vasotec. 3. Lasix. 4. Lopressor. 5. Dilantin. 6. Zocor. 7. Glucotrol. 8. Metformin. 9. Imdur. 10.Lisinopril. 11.Omeprazole. 12.Amlodipine. ALLERGIES: CODEINE. MEDICAL HISTORY: Her medical history includes: 1. Severe stage IV COPD. FEV1 is only 27% of predicted. 2. Previous history of a CVA/ruptured intracranial aneurysm, status post clipping. 3. Diabetes mellitus. 4. Deep venous thrombosis. 5. GERD. 6. Hyperlipidemia. 7. Hypertension. 8. Memory impairment. 9. Pneumonia. 10.Seizure disorder. 11.Sleep apnea syndrome, maintained on CPAP. 12.History of obesity. SURGICAL HISTORY: Surgical history includes: 1. Adenoidectomy. 2. Tonsillectomy. 3. Craniotomy in 2004 with clipping of the aneurysm. 4. Holt teeth removal. 5. Placement of a Chava filter. SOCIAL HISTORY: Positive for ongoing tobacco use. She has been smoking since the age of 12. She smokes at least a pack a day. No alcohol use. No illicit drug use. FAMILY HISTORY: Positive for father with COPD, CAD, stroke, diabetes, hypertension. Mother has a history of COPD, diabetes and hypertension. Her sister has no major medical problems. It is her sister who is in the room with her. REVIEW OF SYSTEMS: CONSTITUTIONAL: Negative. NEUROLOGIC: Negative. HEENT: Negative. CARDIOVASCULAR: Chest pain. PULMONARY: Shortness of breath. GI: Negative. : Negative. RHEUMATOLOGIC: Negative. IMMUNOLOGIC: Negative. ENDOCRINOLOGIC: Negative. DERMATOLOGIC: Negative. PHYSICAL EXAMINATION: VITAL SIGNS: Current vital signs are reviewed. Temperature 97.7, heart rate at 82, respiratory rate 22, blood pressure 128/61, mean 83. Saturations are 92% on a couple of liters. GENERAL APPEARANCE: Appears in no acute distress. HEENT: HEENT examination is grossly unremarkable. Mucous membranes are moist. Nasal oxygen noted. NECK: Supple. Full range of motion. No adenopathy or thyromegaly. Neck veins are flat. CARDIOVASCULAR: Cardiovascular examination reveals distant heart sounds. Heart rate is about 80 beats per minute. S1, S2 normal. There is a prominent systolic murmur, probably consistent with aortic valve disease and possibly aortic stenosis. No S3 or S4. LUNGS: Lungs reveal bibasilar crackles. There are some expiratory wheezes as well. There are some expiratory rhonchi. Breath sounds are diminished throughout. ABDOMEN: Obese. Bowel sounds are heard. EXTREMITIES: Significant chronic venostasis changes. There is stasis dermatitis. There is significant edema of the lower extremities. The skin over the lower extremities is very thickened. SKIN: Skin exam is otherwise unremarkable save for what is mentioned above. NEUROLOGIC: Neurologic examination is brief but nonfocal. LABS: Labs are reviewed. White count 11.2, hemoglobin 10.3, hematocrit 32.5, platelet count 267,000. PT, INR, PTT normal. D-dimer was 1.33. Venous blood gases show a pCO2 of 62, pH of 7.31 and bicarbonate of 30. Sodium 141, potassium 4.9, chloride 104. CO2 is 30. Anion gap is 7. BUN and creatinine were 29 and 0.6. Her alkaline phosphatase is 128. Her N-terminal proBNP is 414. Troponin less than 0.012. Urine is essentially negative. IMAGING: Chest x-ray is consistent with pulmonary edema. ASSESSMENT: 1. Shortness of breath, likely multifactorial, in part related to severe chronic obstructive pulmonary disease and chronic obstructive pulmonary disease exacerbation, acute pulmonary edema and valvular heart disease. 2. History of valvular heart disease with anticipated transesophageal echocardiogram. 3. Severe chronic obstructive pulmonary disease from ongoing tobacco use. FEV1 only 27% of predicted. 4. Obesity. 5. Status post ruptured intracranial aneurysm, status post clipping. 6. History of deep venous thrombosis. 7. History of diabetes mellitus. 8. History of seizure disorder. 9. History of pneumonia. 10.History of memory impairment. 11.History of hypertension. 12.History of hyperlipidemia. 13.History of gastroesophageal reflux disease. 14.Sleep apnea syndrome, currently on CPAP. 15.Status post Chava filter placement. PLAN: The patient's medications are reviewed. Certainly we will treat the COPD exacerbation. Additional recommendations and suggestions are forthcoming. She would not be a surgical candidate in my book, as her pulmonary function is too abnormal. She has quite severe chronic lung disease with an FEV1 at 27% of predicted. The patient will follow up with Dr. Zaragoza. She will be seen by Cardiology. Additional recommendations and suggestions are forthcoming. Prognosis is guarded. We will continue to follow. MMODL / IJN: [id number] /
[2019-06-04 16:49] LABS: Glucose,Whole Blood 197 mg/dL (75-99)
--- NOTE | 2019-06-04 18:09 | ECHOF ---
Referral Reason:chf MEASUREMENTS -------- HEIGHT: 162.6 cm WEIGHT: 121.1 kg BP: 130/80 RVIDd: 3.8 cm (< 3.3) IVSd: 1.4 cm (0.6 - 1.1) LVIDd: 5.4 cm (3.9 - 5.3) LVPWd: 1.8 cm (0.6 - 1.1) IVSs: 2.0 cm LVIDs: 4.0 cm LVPWs: 2.0 cm LA Diam: 5.6 cm (2.7 - 3.8) LAESV Index (A-L): 41.14 ml/m Ao Diam: 2.6 cm (2.0 - 3.7) LA Diam: 3.5 cm (2.7 - 3.8) MV EXCURSION: 16.399 mm (> 18.000) MV EF SLOPE: 50 mm/s (70 - 150) EPSS: 1.2 cm MV E Ryder: 0.97 m/s MV DecT: 267 ms MV A Ryder: 0.95 m/s MV E/A Ratio: 1.01 AV maxP.72 mmHg AV meanP.83 mmHg RAP: 5.00 mmHg RVSP: 15.28 mmHg TAPSE: 2.28 cm FINDINGS -------- Sinus rhythm. Morbid Obesity This was a techncally difficult study with suboptimal views, , Lumason utilized for enhancement of images. The left ventricular size is normal. There is moderate concentric left ventricular hypertrophy. O verall left ventricular systolic function is normal with, an EF between 55 - 60 %. The right ventricle is moderately enlarged. LA is severely dilated >40 ml/m2 The right atrial size is normal. There is moderate aortic valve sclerosis. There is [id number] aortic stenosis present. Pe ak/mean gradient across the Aortic Valve is 55.72mmHg / 34.83mmHg. Mild mitral annular calcification present. Mild mitral regurgitation is present. Mild tricuspid regurgitation present. There is no evidence of pulmonary hypertension. The right v entricular systolic pressure, as measured by Doppler, is 15.28mmHg. There is no pulmonic regurgitation present. The aortic root size is normal. There is no pericardial effusion. CONCLUSIONS -------- 1. Sinus rhythm. 2. Morbid Obesity 3. This was a techncally difficult study with suboptimal views, , Lumason utilized for enhancement of images. 4. The left ventricular size is normal. 5. There is moderate concentric left ventricular hypertrophy. 6. Overall left ventricular systolic function is normal with, an EF between 55 - 60 %. 7. 8. The right ventricle is moderately enlarged. 9. LA is severely dilated >40 ml/m2 10. There is moderate aortic valve sclerosis. 11. There is [id number] aortic stenosis present. 12. Peak/mean gradient across the Aortic Valve is 55.72mmHg / 34.83mmHg. 13. Mild mitral annular calcification present. 14. Mild mitral regurgitation is present. 15. Mild tricuspid regurgitation present. 16. There is no evidence of pulmonary hypertension. 17. There is no pulmonic regurgitation present. 18. The aortic root size is normal. 19. There is no pericardial effusion. [employer]MENT INSTALLER: Belinda Nance RDCS
[2019-06-04] MEDS: FORMOTEROL FUMARATE 20 MCG/2 ML NEBU INHALATION SCH (19:17)
[2019-06-04] MEDS: BUDESONIDE 1 MG/2 ML NEBU INHALATION SCH (19:17)
[2019-06-04 20:29] LABS: Glucose,Whole Blood 305 mg/dL (75-99)
[2019-06-04] MEDS: ATORVASTATIN 20 MG TAB PO SCH (21:27)
[2019-06-04] MEDS: SODIUM CHLORIDE 0.9% 1,000 ML IV SCH (21:31)
[2019-06-05 06:31] LABS: Basophils % (A) 0 %; Eosinophils # (A) 0.1 k/uL (0-0.7); Eosinophils % (A) 1 %; HCT 29.6 % (34.0-46.0); HGB 9.5 gm/dL (11.4-16.0); Hypochromasia Slight; Lymphocytes # (A) 0.9 k/uL (1.0-4.8); Lymphocytes % (A) 9 %; MCH 30.6 pg (25.0-35.0); MCHC 32.1 g/dL (31.0-37.0); MCV 95.4 fL (80.0-100.0); Mean Platelet Volume 6.2; Monocytes # (A) 0.4 k/uL (0-1.0); Monocytes % (A) 4 %; Neutrophils # (A) 8.3 k/uL (1.3-7.7); Neutrophils % (A) 85 %; Platelet Count 301 k/uL (150-450); RDW 15.8 % (11.5-15.5); WBC 9.7 k/uL (3.8-10.6)
[2019-06-05] MEDS: INSULIN ASPART (NovoLOG) 100 UNIT/ML VIAL SQ SCH ×4 (06:34→20:57)
[2019-06-05 06:35] LABS: Glucose,Whole Blood 134 mg/dL (75-99)
[2019-06-05] MEDS: methylPREDNISolone SOD SUCCI 40 MG/ML 1 ML VIAL IV SCH ×4 (06:36→23:20)
[2019-06-05] MEDS: glipiZIDE 5 MG TAB PO SCH ×2 (06:37→17:07)
[2019-06-05 06:47] LABS: African American GFR (CKD) >90 (>60 ml/min/1.73 sqM); Blood Urea Nitrogen 25 mg/dL (7-17); Calcium 8.8 mg/dL (8.4-10.2); Chloride 103 mmol/L (98-107); Glucose 123 mg/dL (74-99); Potassium 4.9 mmol/L (3.5-5.1); Sodium 141 mmol/L (137-145)
[2019-06-05 07:03] LABS: Anion Gap 5 mmol/L; Carbon Dioxide 33 mmol/L (22-30)
[2019-06-05] MEDS: amLODIPine 5 MG TAB PO SCH (08:31)
[2019-06-05] MEDS: PHENYTOIN SODIUM EXTENDED 100 MG CAP PO SCH ×3 (08:31→20:56)
[2019-06-05] MEDS: LISINOPRIL 20 MG TAB PO SCH ×2 (08:31→20:56)
[2019-06-05] MEDS: CITALOPRAM HYDROBROMIDE 20 MG TAB PO SCH (08:31)
[2019-06-05] MEDS: ISOSORBIDE MONONITRATE ER 30 MG TAB.ER.24H PO SCH (08:31)
[2019-06-05] MEDS: PANTOPRAZOLE 40 MG TABLET PO SCH (08:32)
[2019-06-05] MEDS: FUROSEMIDE 10 MG/ML 4 ML VIAL IV SCH ×3 (08:32→23:20)
[2019-06-05] MEDS: METOPROLOL TARTRATE 50 MG TAB PO SCH ×2 (08:32→20:56)
[2019-06-05] MEDS: BUDESONIDE 1 MG/2 ML NEBU INHALATION SCH ×2 (09:10→19:11)
[2019-06-05] MEDS: FORMOTEROL FUMARATE 20 MCG/2 ML NEBU INHALATION SCH ×2 (09:10→19:11)
[2019-06-05] MEDS: IPRATROPIUM-ALBUTEROL 3 ML NEB INHALATION SCH ×4 (09:10→19:12)
--- NOTE | 2019-06-05 09:15 | P.PN ---
Subjective Progress Note Date: 06/05/19 Principal diagnosis: Acute exacerbation of severe chronic obstructive pulmonary disease along with acute pulmonary edema and valvular heart disease. The patient is seen today 06/05/2019 in follow-up on the active care unit. She is sitting up at the bedside. Awake and alert in no acute distress. Breathing easier today as compared to yesterday. He was on and off the BiPAP throughout the evening. Currently on 5 L/m per nasal cannula to maintain O2 saturations in the low 90s. She's been afebrile. Hemodynamically stable. Blood culture reveals no growth thus far. White count 9.7. Hemoglobin 9.5. Creatinine 0.53. She remains on DuoNeb inhalations, Pulmicort and Perforomist inhalations, IV Solu-Medrol and being diuresed with Lasix 40 mg IV every 8 hours. Currently in a negative balance. Objective - Vital Signs Vital signs: Vital Signs Temp 97.2 F L 06/05/19 04:00 Pulse 64 06/05/19 04:00 Resp 18 06/05/19 04:00 BP 134/63 06/05/19 04:00 Pulse Ox 98 06/05/19 04:00 Intake & Output 06/04/19 06/05/19 06/05/19 18:59 06:59 18:59 Intake Total 720 20 480 Output Total 1715 1800 Balance -995 -1780 480 Weight 121.5 kg 123.5 kg Intake: IV 20 0.9 20 Oral 720 480 Output: Urine 1715 1800 Other: Voiding Method Indwelling Catheter Indwelling Catheter - Exam GENERAL EXAM: Alert, pleasant 59-year-old female patient, comfortable in no apparent distress. On 5 L nasal cannula alternating with BiPAP. HEAD: Normocephalic. EYES: Normal reaction of pupils, equal size. NOSE: Clear with pink turbinates. THROAT: No erythema or exudates. NECK: No masses, no JVD. CHEST: No chest wall deformity. LUNGS: Equal air entry with bilateral end expiratory wheeze, crackles in the posterior bases CVS: S1 and S2 normal with no audible murmur, regular rhythm. ABDOMEN: No hepatosplenomegaly, normal bowel sounds, no guarding or rigidity. SPINE: No scoliosis or deformity SKIN: No rashes CENTRAL NERVOUS SYSTEM: No focal deficits, tone is normal in all 4 extremities. EXTREMITIES: There is 1+ peripheral edema. No clubbing, no cyanosis. Peripheral pulses are intact. - Labs CBC & Chem 7: 06/05/19 05:36 06/05/19 05:36 Labs: Abnormal Lab Results - Last 24 Hours (Table) 06/04/19 06/04/19 06/04/19 Range/Units 11:40 16:47 20:28 RBC (3.80-5.40) m/uL Hgb (11.4-16.0) gm/dL Hct (34.0-46.0) % RDW (11.5-15.5) % Neutrophils # (1.3-7.7) k/uL Lymphocytes # (1.0-4.8) k/uL Carbon Dioxide (22-30) mmol/L BUN (7-17) mg/dL Glucose (74-99) mg/dL POC Glucose (mg/dL) 104 H 197 H 305 H (75-99) mg/dL 06/05/19 06/05/19 06/05/19 Range/Units 05:36 05:36 06:33 RBC 3.10 L (3.80-5.40) m/uL Hgb 9.5 L (11.4-16.0) gm/dL Hct 29.6 L (34.0-46.0) % RDW 15.8 H (11.5-15.5) % Neutrophils # 8.3 H (1.3-7.7) k/uL Lymphocytes # 0.9 L (1.0-4.8) k/uL Carbon Dioxide 33 H (22-30) mmol/L BUN 25 H (7-17) mg/dL Glucose 123 H (74-99) mg/dL POC Glucose (mg/dL) 134 H (75-99) mg/dL Microbiology - Last 24 Hours (Table) 06/03/19 20:05 Blood Culture - Preliminary Blood No Growth after 24 hours Assessment and Plan Assessment: Impression: #1 Acute exacerbation of chronic obstructive pulmonary disease FEV1 value 27% of predicted. #2 Acute on chronic hypoxic respiratory failure secondary to above. #3 Acute on chronic diastolic congestive heart failure. #4 Obesity. #5 Obstructive sleep apnea on home CPAP. #6 Chronic and ongoing tobacco dependence. #7 Diabetes mellitus. #8 History of seizure disorder. #9 History of brain aneurysm with memory impairment. #10 Hypertension. #11 Hyperlipidemia. #12 Esophageal reflux disease. #13 History of Chava filter placement. Plan: The patient was seen and evaluated by Dr. Hernandez. She is improved today as compared to yesterday. Continue with the current treatment plan. Continue to diurese. Continue to utilize BiPAP at night and during the day as needed. We'll increase her activity as tolerated. We'll continue to follow make further recommendations based on her clinical status. I, the cosigning physician, performed a history & physical examination of the patient. Lungs sounds with bilateral end expiratory wheeze, crackles in the posterior bases. Maintaining good O2 saturations in the 90s on its liters per minute per nasal cannula alternating with BiPAP. I discussed the assessment and plan of care with my nurse practitioner, Samantha Devi. I attest to the above note as dictated by her.
[2019-06-05 11:57] LABS: Glucose,Whole Blood 163 mg/dL (75-99)
--- NOTE | 2019-06-05 12:25 | P.PN ---
Subjective Progress Note Date: 06/05/19 This is a 59-year-old female who follows with Dr. Lane in the office, she seen him most recently in the office on Friday. She has history of severe COPD, home O2, nicotine dependence, pulmonary hypertension, severe aortic stenosis, obesity, diabetes, hypertension, hyperlipidemia, peripheral vascular disease. Patient has been having frequent episodes of chest discomfort with associated difficulty in breathing. It was recommended by Dr. Lane that the patient undergo a GAVIOTA with subsequent cardiac catheterization. Patient was quite anxious to have this procedure performed, which is why it has been scheduled a week out. It is actually scheduled on the of this month. Patient presents to the hospital on this occasion with symptoms of recurrent chest discomfort and worsening in her breathing. She states that she's been using nitroglycerin on a daily basis, she ran out of it yesterday. Chest x-ray showed moderate pulmonary edema, change as compared with prior exam. Venous duplex study was performed, no evidence of DVT in the left leg, thready flow seen in the midportion of the right femoral vein. Possible thrombus in this area. Limited evaluation of the femoral vein due to patient body habitus. CT of the chest did not reveal evidence of a pulmonary embolism. Bilateral lower lobe pulmonary infiltrates and atelectasis new as compared with prior exam. There is some increased mediastinal and bronchial adenopathy as compared with old exam. EKG shows a sinus tachycardia with inferior lateral ST depression. Blood pressure 128/60 with a heart rate in the 80s, 92% on room air. White blood cell count 11.2, hemoglobin 10.3, platelet count 367. D-dimer 1.3, pH 7.3, pCO2 62, HCO3 30. Sodium 141, potassium 4.9, BUN 29, creatinine 0.6. Troponin 0.012. BNP level 414. Patient was initiated on IV Lasix in the emergency room along with IV nitroglycerin drip. The patient has been putting out excellent urine since the Lasix started. She continues to feel short of breath, unable to lie flat. 06/05: Patient is seen in follow-up. She states her lungs and breathing are better today. Discussed need for heart catheterization possibly on Friday and Friday. Patient states as of today she still would not be able to lay flat but may be improved by Friday. A repeat chest x-ray will be ordered. Echocardiogram reveals EF of 55-60%, moderate concentric left hypertrophy, moderate to severe aortic stenosis, mild mitral regurgitation, mild tricuspid regurgitation, no pulmonary hypertension. Repeat lab work reveals hemoglobin of 9.5, BUN 25 creatinine 0.53 and potassium 4.9. Physical exam: Gen: This is a morbidly obese 59-year-old female. She is in a recliner and appears to be comfortable. No acute distress noted. HEENT: Head is atraumatic, normocephalic. Pupils equal, round. Sclerae is anicteric. NECK: Supple. No JVD. No lymphadenopathy. No thyromegaly. LUNGS: Diminished at the bases with bilateral rales. No intercostal retractions. HEART: Regular rate and rhythm. Systolic ejection murmur. ABDOMEN: Morbidly obese. Soft. Bowel sounds are present. No masses. No tenderness. EXTREMITIES: 2+ pedal edema. Chronic venous stasis changes to the lower extremities. NEUROLOGICAL: Patient is awake, alert and oriented x3. Cranial nerves 2 through 12 are grossly intact. Assessment: Acute on chronic diastolic heart failure with pulmonary edema, CTA for possible infiltrate but pulmonary medicine ruled out Chest pain atypical for acute coronary syndrome. EKG was sinus tachycardia with inferior lateral ST depression Diabetes mellitus type 2 Hypertension Hyperlipidemia Peripheral vascular disease COPD Nicotine dependence Severe aortic stenosis Plan: Patient is scheduled for GAVIOTA and heart catheterization on June 10 the plan is to obtain heart catheterization prior to discharge if patient's breathing status is optimized. Continue Lasix 40 mg IV every 8 hours, Lopressor 75 mg twice daily Continue Imdur 30 g daily and atorvastatin 20 g at bedtime Continue lisinopril 20 mg twice daily, amlodipine 5 mg daily Monitor I&O and daily weights, daily electrolytes and renal function Further recommendations to follow based upon clinical course. Respiratory note has been reviewed, I agree with the document and findings and plan of care. Patient was seen and examined. Objective - Vital Signs Vital signs: Vital Signs Temp 97.3 F L 06/05/19 11:47 Pulse 63 06/05/19 11:47 Resp 20 06/05/19 11:47 BP 105/53 06/05/19 11:47 Pulse Ox 98 06/05/19 11:47 Intake & Output 06/04/19 06/05/19 06/05/19 18:59 06:59 18:59 Intake Total 720 20 480 Output Total 1715 1800 Balance -995 -0546 480 Weight 121.5 kg 123.5 kg Intake: IV 20 0.9 20 Oral 720 480 Output: Urine 1715 1800 Other: Voiding Method Indwelling Catheter Indwelling Catheter Indwelling Catheter - Labs CBC & Chem 7: 06/05/19 05:36 06/05/19 05:36 Labs: Abnormal Lab Results - Last 24 Hours (Table) 06/04/19 06/04/19 06/05/19 Range/Units 16:47 20:28 05:36 RBC 3.10 L (3.80-5.40) m/uL Hgb 9.5 L (11.4-16.0) gm/dL Hct 29.6 L (34.0-46.0) % RDW 15.8 H (11.5-15.5) % Neutrophils # 8.3 H (1.3-7.7) k/uL Lymphocytes # 0.9 L (1.0-4.8) k/uL Carbon Dioxide (22-30) mmol/L BUN (7-17) mg/dL Glucose (74-99) mg/dL POC Glucose (mg/dL) 197 H 305 H (75-99) mg/dL 06/05/19 06/05/19 06/05/19 Range/Units 05:36 06:33 11:41 RBC (3.80-5.40) m/uL Hgb (11.4-16.0) gm/dL Hct (34.0-46.0) % RDW (11.5-15.5) % Neutrophils # (1.3-7.7) k/uL Lymphocytes # (1.0-4.8) k/uL Carbon Dioxide 33 H (22-30) mmol/L BUN 25 H (7-17) mg/dL Glucose 123 H (74-99) mg/dL POC Glucose (mg/dL) 134 H 163 H (75-99) mg/dL Microbiology - Last 24 Hours (Table) 06/03/19 20:05 Blood Culture - Preliminary Blood No Growth after 24 hours
--- NOTE | 2019-06-05 12:57 | P.PN ---
Subjective This is a 59-year-old female with history of CHF, chronic intermittent asthma, hypertension, COPD, diabetes, diabetic neuropathy, obesity with obstructive sleep apnea on a CPAP, hyperlipidemia, CVA/TIA, DVT, gastroesophageal reflux disease, seizure disorder, subarachnoid hemorrhage 2004 with short-term memory deficit, DVT, inferior vena cava filter placement, ongoing nicotine dependence and multiple other medical issues. Presented to the ER via EMS with substernal crushing chest pain, radiating to right upper arm, and bilateral jaws accompa nied by shortness of breath 48 hours and bilateral lower extremity edema. Unable to lie flat. Reports daily use of nitroglycerin and ran out of it yesterday. Hypoxic on EMS arrival, oxygen placed. Prehospital EKG reported diffuse ST segment depression. On arrival to the ER patient was maintaining O2 sats of 89% on 15 L nonrebreather, blood pressure 173/82, tachycardic heart rates in the 110s. EKG in the ER reported sinus tachycardia, inferior lateral ST depression. Troponin negative 1.BNP 400. Recently at cardiology's office, echo performed/being obtained. Cardiology recommended GAVIOTA and cardiac catheterization, patient postponed it. Aspirin administered, Nitroglycerin drip initiated. D-dimer 1.3, coag panel negative. Venous Doppler reported no evidence of DVT in the left leg, evidence for chronic DVT in the right leg in the femoral vein Hemoglobin 10.3 ABGs noted with pH 7.3, CO2 62, bicarb 30. UA negative, mild leukocytosis of 11.2, afebrile. Heparin drip and not initiated secondary to patient's history of intracranial bleed, as recommended per land reclamation specialist. Chest x-ray reporting moderate pulmonary edema with no definite pleural effusions .Pulmonary embolism ruled out per CTA, bilateral lower lobe infiltrates and atelectasis with increased mediastinal and bronchial adenopathy; multiple paratracheal and anterior mediastinal lymph nodes measuring up to 2 cm, thickening of left and right adrenal gland consistent with hypertrophy reported. Antibiotics given. Cardiology and pulmonary consulted. Evaluated by cardiology with recommendations noted and appreciated. Currently diuresing on Lasix IV push, maintaining O2 sats in the high 80s to low 90s on 5 L of nasal cannula, continues on nitroglycerin drip. BUN 29 creatinine 0.6. 06/05/2019: Patient is feeling better. She is less short of breath. She remained on BiPAP overnight. She remains on 5 L O2 via nasal cannula currently. Audiology, pulmonology, and PMNR seen her. GAVIOTA and cardiac catheterization scheduled for Friday. She remains on IV Lasix Lopressor, Imdur, lisinopril, amlodipine. I'll sign oximetry is 90% on 5 L via nasal cannula. She is afebrile. She denies any chest pains, pressures this time. Shortness of breath with exertion and occasionally at rest. As stated, it is improved. She is a [place] catheter to gravity. She denies any bowel movements past day. She is tolerating her diet. Denies any nausea or vomiting. Objective - Vital Signs Vital signs: Vital Signs Temp 97.3 F L 06/05/19 11:47 Pulse 63 06/05/19 11:47 Resp 20 06/05/19 11:47 BP 105/53 06/05/19 11:47 Pulse Ox 98 06/05/19 11:47 Intake & Output 06/04/19 06/05/19 06/05/19 18:59 06:59 18:59 Intake Total 720 20 480 Output Total 1715 1800 Balance -995 -1780 480 Weight 121.5 kg 123.5 kg Intake: IV 20 0.9 20 Oral 720 480 Output: Urine 1715 1800 Other: Voiding Method Indwelling Catheter Indwelling Catheter Indwelling Catheter - Exam GENERAL: Sitting up at side of bed, no acute distress, resting effort increased NECK: No JVD. No thyroid enlargement. No LNs CARDIOVASCULAR: S1, S2 regular. Positive systolic murmur over the right sternal border RESPIRATION: Labored, Breath sounds diminished in the bases. No rhonchi or crack les. Positive expiratory wheezing. ABDOMEN: Soft, obese, nontender . No guarding. no masses palpable. No ascites, No hepatosplenomegaly.Bowel sounds heard. LEGS: Positive edema, dry, scaly, discolored -chronic venous stasis +1 edema PSYCHIATRY: Alert and oriented X3, mood and affect normal. NERVOUS SYSTEM: Cranial N 2-12 grossly normal. Short-term memory deficit .Moves all 4 limbs. Diffuse weakness No focal deficits. Strength and sensation grossly intact.. Skin: no lesions, no rash. No calf tenderness Lymphatic system. No LN neck axilla. - Labs CBC & Chem 7: 06/05/19 05:36 06/05/19 05:36 Labs: Abnormal Lab Results - Last 24 Hours (Table) 06/04/19 06/04/19 06/05/19 Range/Units 16:47 20:28 05:36 RBC 3.10 L (3.80-5.40) m/uL Hgb 9.5 L (11.4-16.0) gm/dL Hct 29.6 L (34.0-46.0) % RDW 15.8 H (11.5-15.5) % Neutrophils # 8.3 H (1.3-7.7) k/uL Lymphocytes # 0.9 L (1.0-4.8) k/uL Carbon Dioxide (22-30) mmol/L BUN (7-17) mg/dL Glucose (74-99) mg/dL POC Glucose (mg/dL) 197 H 305 H (75-99) mg/dL 06/05/19 06/05/19 06/05/19 Range/Units 05:36 06:33 11:41 RBC (3.80-5.40) m/uL Hgb (11.4-16.0) gm/dL Hct (34.0-46.0) % RDW (11.5-15.5) % Neutrophils # (1.3-7.7) k/uL Lymphocytes # (1.0-4.8) k/uL Carbon Dioxide 33 H (22-30) mmol/L BUN 25 H (7-17) mg/dL Glucose 123 H (74-99) mg/dL POC Glucose (mg/dL) 134 H 163 H (75-99) mg/dL Microbiology - Last 24 Hours (Table) 06/03/19 20:05 Blood Culture - Preliminary Blood No Growth after 24 hours Assessment and Plan (1) Acute on chronic diastolic (congestive) heart failure Current Visit: Yes Status: Acute Code(s): I50.33 - ACUTE ON CHRONIC DIASTOLIC (CONGESTIVE) HEART FAILURE SNOMED Code(s): 277713488 (2) Aortic stenosis Current Visit: Yes Status: Acute Code(s): I35.0 - NONRHEUMATIC AORTIC (VALVE) STENOSIS SNOMED Code(s): 87288175 (3) Obstructive sleep apnea Current Visit: Yes Status: Acute Code(s): G47.33 - OBSTRUCTIVE SLEEP APNEA (ADULT) (PEDIATRIC) SNOMED Code(s): 13872236 (4) Essential (primary) hypertension Current Visit: Yes Status: Acute Code(s): I10 - ESSENTIAL (PRIMARY) HYPERTENSION SNOMED Code(s): 33197101 (5) Pure hypercholesterolemia Current Visit: Yes Status: Acute Code(s): E78.00 - PURE HYPERCHOLESTEROLEMIA, UNSPECIFIED SNOMED Code(s): 011080985 (6) Seizure disorder as sequela of cerebrovascular accident Current Visit: Yes Status: Acute Code(s): I69.398 - OTHER SEQUELAE OF CEREBRAL INFARCTION; G40.909 - EPILEPSY, UNSP, NOT INTRACTABLE, WITHOUT STATUS EPILEPTICUS SNOMED Code(s): 572336591635687 (7) H/O cerebral aneurysm repair Current Visit: Yes Status: Acute Code(s): Z98.890 - OTHER SPECIFIED POSTPROC EDURAL STATES; Z86.79 - PERSONAL HISTORY OF OTHER DISEASES OF THE CIRCULATORY SYSTEM SNOMED Code(s): 446736254 (8) Diabetes Current Visit: Yes Status: Acute Code(s): E11.9 - TYPE 2 DIABETES MELLITUS WITHOUT COMPLICATIONS SNOMED Code(s): 96795144 (9) Tobacco abuse Current Visit: Yes Status: Acute Code(s): Z72.0 - TOBACCO USE SNOMED Code (s): 422130445 (10) Memory deficit Current Visit: Yes Status: Acute Code(s): R41.3 - OTHER AMNESIA SNOMED Code(s): 536932307 Plan: She'll continue on her current medications treatments per cardiology, pulmonology. Patient will continue in physical therapy per PMNR. Maybe candidate for ECF as she does live alone. We'll her sister does help her, she has significant memory deficit which affects her health. She also smokes heavil y. Tobacco cessation was discussed with her. Repeat labs in a.m. She'll be reevaluated next 24 hours.
--- NOTE | 2019-06-05 13:04 | XR ---
EXAMINATION TYPE: XR chest 2V DATE OF EXAM: 06/05/2019 COMPARISON: 06/03/2019 HISTORY: Shortness of breath TECHNIQUE: Frontal and lateral views of the chest are obtained. FINDINGS: Scattered senescent parenchymal changes noted. Hyperinflation compatible with COPD. Persistent but much improved features of congestive failure. Heart size is stable. Mediastinal structures are stable and grossly unremarkable. No evidence for hilar prominence. Degenerative changes dorsal spine. IMPRESSION: 1. Persistent but much improved features of congestive failure.
[2019-06-05 17:08] LABS: Glucose,Whole Blood 185 mg/dL (75-99)
[2019-06-05 20:19] LABS: Glucose,Whole Blood 346 mg/dL (75-99)
[2019-06-05] MEDS: ATORVASTATIN 20 MG TAB PO SCH (20:57)
[2019-06-05] MEDS: SODIUM CHLORIDE 0.9% 1,000 ML IV SCH (20:58)
[2019-06-05] MEDS: IPRATROPIUM-ALBUTEROL 3 ML NEB INHALATION PRN (23:20)
[2019-06-05] MEDS: ALPRAZolam 0.25 MG TAB PO PRN (23:53)
[2019-06-06] MEDS: IPRATROPIUM-ALBUTEROL 3 ML NEB INHALATION PRN (02:56)
[2019-06-06 06:11] LABS: African American GFR (CKD) >90 (>60 ml/min/1.73 sqM); Anion Gap 4 mmol/L; Blood Urea Nitrogen 32 mg/dL (7-17); Calcium 8.9 mg/dL (8.4-10.2); Carbon Dioxide 35 mmol/L (22-30); Chloride 101 mmol/L (98-107); Glucose 166 mg/dL (74-99); Sodium 140 mmol/L (137-145)
[2019-06-06 06:13] LABS: Glucose,Whole Blood 160 mg/dL (75-99)
[2019-06-06] MEDS: methylPREDNISolone SOD SUCCI 40 MG/ML 1 ML VIAL IV SCH ×4 (06:13→23:08)
[2019-06-06] MEDS: glipiZIDE 5 MG TAB PO SCH (06:16)
[2019-06-06] MEDS: INSULIN ASPART (NovoLOG) 100 UNIT/ML VIAL SQ SCH ×4 (06:16→21:28)
[2019-06-06 06:44] LABS: Anisocytosis Slight; Basophils % (A) 0 %; Eosinophils % (A) 0 %; HCT 29.7 % (34.0-46.0); HGB 9.6 gm/dL (11.4-16.0); Lymphocytes % (A) 10 %; MCH 30.3 pg (25.0-35.0); MCHC 32.2 g/dL (31.0-37.0); MCV 94.3 fL (80.0-100.0); Mean Platelet Volume 6.6; Monocytes # (A) 0.4 k/uL (0-1.0); Monocytes % (A) 4 %; Neutrophils # (A) 8.2 k/uL (1.3-7.7); Neutrophils % (A) 83 %; Platelet Count 305 k/uL (150-450); RBC 3.15 m/uL (3.80-5.40); WBC 9.8 k/uL (3.8-10.6)
[2019-06-06] MEDS: PHENYTOIN SODIUM EXTENDED 100 MG CAP PO SCH ×3 (08:57→21:28)
[2019-06-06] MEDS: METOPROLOL TARTRATE 50 MG TAB PO SCH ×2 (08:57→21:28)
[2019-06-06] MEDS: CITALOPRAM HYDROBROMIDE 20 MG TAB PO SCH (08:57)
[2019-06-06] MEDS: amLODIPine 5 MG TAB PO SCH (08:57)
[2019-06-06] MEDS: LISINOPRIL 20 MG TAB PO SCH ×2 (08:57→21:28)
[2019-06-06] MEDS: FUROSEMIDE 10 MG/ML 4 ML VIAL IV SCH ×3 (08:57→23:08)
[2019-06-06] MEDS: ISOSORBIDE MONONITRATE ER 30 MG TAB.ER.24H PO SCH (08:57)
[2019-06-06] MEDS: PANTOPRAZOLE 40 MG TABLET PO SCH (08:57)
[2019-06-06] MEDS: BUDESONIDE 1 MG/2 ML NEBU INHALATION SCH ×2 (09:20→20:51)
[2019-06-06] MEDS: FORMOTEROL FUMARATE 20 MCG/2 ML NEBU INHALATION SCH ×2 (09:20→20:51)
[2019-06-06] MEDS: IPRATROPIUM-ALBUTEROL 3 ML NEB INHALATION SCH ×4 (09:20→20:51)
--- NOTE | 2019-06-06 12:08 | PN ---
PROGRESS NOTE This is a 59-year-old female who was admitted with a diagnosis of COPD exacerbation. She has a history of very severe stage IV COPD with an FEV1 that is 27% of predicted. She sees my partner for her COPD. In addition, she has a history of diastolic CHF, obesity, chronic hypoxemic respiratory failure, sleep apnea syndrome, chronic and ongoing tobacco dependence, diabetes mellitus, seizure disorder, previous history of brain aneurysm rupture with memory impairment, hypertension, hyperlipidemia, GERD, and status post [place] filter placement. Currently, the patient is doing better. She is using BiPAP at nighttime. The patient continues on appropriate medications for her COPD. She has been counseled about the importance of smoking cessation. She seems to laugh about it when she is confronted. She does have significant valvular heart disease as well and surgery probably would not be a consideration given her bad COPD. PHYSICAL EXAMINATION: VITAL SIGNS: Current vital signs are reviewed. Her temperature is 97.8. Heart rate 72, respiratory rate 20, blood pressure 139/54 mean 82, saturation 97% on 5 L. GENERAL: Appears in no acute distress. HEENT examination is grossly unremarkable. Mucous membranes are moist. Nasal O2 is noted. NECK: Supple. Full range of motion. No adenopathy or thyromegaly. Neck veins are flat. CARDIOVASCULAR examination reveals regular rhythm and rate. S1, S2 normal. A soft systolic murmur is noted. Few premature beats noted. LUNGS: Reveal diminished breath sounds throughout. There is diffuse expiratory wheezes and rhonchi. No crackles. Breath sounds are as mentioned are equal but diminished throughout. ABDOMEN: Obese. Bowel sounds are heard. EXTREMITIES are intact. Some mild edema noted. No cyanosis or clubbing. SKIN: Without rash. NEUROLOGIC examination is brief but nonfocal. LAB DATA: Reviewed. White count 9.8, hemoglobin 9.6, hematocrit 29.7, platelet count 305,000. Sodium, potassium, chloride normal. CO2 35. Anion gap is 4, BUN and creatinine were 32 and 0.69. Microbiology is negative. Chest x-ray shows mild changes of fluid overload. She has small bilateral effusions, mild cephalization and some fluid in the minor fissure. Medications are reviewed. ASSESSMENT: 1. Acute exacerbation of the patient's severe/gold stage IV chronic obstructive pulmonary disease. FEV1 is 27% of predicted. 2. Chronic hypoxemic respiratory failure. 3. Acute on chronic diastolic congestive heart failure, improving. 4. Obesity. 5. Sleep apnea syndrome, maintained on nocturnal BiPAP here and CPAP at home. 6. Chronic and ongoing tobacco dependence. 7. Diabetes mellitus. 8. History of seizure disorder. 9. Valvular heart disease. 10.History of brain aneurysm rupture with memory impairment. 11.Hypertension. 12.Hyperlipidemia. 13.Esophageal reflux disease. 14.History of Chava filter. PLAN: Overall the patient is doing better. Not quite ready for discharge. Her culture data is negative. Her medications are reviewed. She is on appropriate medications for both the heart failure and COPD. We will continue to follow. No additional recommendations are made. MMODL / IJN: [id number] /
[2019-06-06 12:26] LABS: Glucose,Whole Blood 200 mg/dL (75-99)
[2019-06-06] MEDS ORDERED: ATORVASTATIN 80 MG TAB PO STA (13:37)
[2019-06-06] MEDS ORDERED: NITROGLYCERIN SL TABS 0.4 MG TAB SUBLINGUAL PRN (13:37)
[2019-06-06] MEDS ORDERED: ASPIRIN 325 MG TAB PO STA (13:37)
[2019-06-06] MEDS ORDERED: SODIUM CHLORIDE 0.9% 1,000 ML in EMPTY BAG 1 BAG IV ONE (13:37)
--- NOTE | 2019-06-06 13:40 | P.PN ---
Subjective Progress Note Date: 06/06/19 This is a 59-year-old female who follows with Dr. Lane in the office, she seen him most recently in the office on Friday. She has history of severe COPD, home O2, nicotine dependence, pulmonary hypertension, severe aortic stenosis, obesity, diabetes, hypertension, hyperlipidemia, peripheral vascular disease. Patient has been having frequent episodes of chest discomfort with associated difficulty in breathing. It was recommended by Dr. Lane that the patient undergo a GAVIOTA with subsequent cardiac catheterization. Patient was quite anxious to have this procedure performed, which is why it has been scheduled a week out. It is actually scheduled on the of this month. Patient presents to the hospital on this occasion with symptoms of recurrent chest discomfort and worsening in her breathing. She states that she's been using nitroglycerin on a daily basis, she ran out of it yesterday. Chest x-ray showed moderate pulmonary edema, change as compared with prior exam. Venous duplex study was performed, no evidence of DVT in the left leg, thready flow seen in the midportion of the right femoral vein. Possible thrombus in this area. Limited evaluation of the femoral vein due to patient body habitus. CT of the chest did not reveal evidence of a pulmonary embolism. Bilateral lower lobe pulmonary infiltrates and atelectasis new as compared with prior exam. There is some increased mediastinal and bronchial adenopathy as compared with old exam. EKG shows a sinus tachycardia with inferior lateral ST depression. Blood pressure 128/60 with a heart rate in the 80s, 92% on room air. White blood cell count 11.2, hemoglobin 10.3, platelet count 367. D-dimer 1.3, pH 7.3, pCO2 62, HCO3 30. Sodium 141, potassium 4.9, BUN 29, creatinine 0.6. Troponin 0.012. BNP level 414. Patient was initiated on IV Lasix in the emergency room along with IV nitroglycerin drip. The patient has been putting out excellent urine since the Lasix started. She continues to feel short of breath, unable to lie flat. 06/05: Patient is seen in follow-up. She states her lungs and breathing are better today. Discussed need for heart catheterization possibly on Friday and Friday. Patient states as of today she still would not be able to lay flat but may be improved by Friday. A repeat chest x-ray will be ordered. Echocardiogram reveals EF of 55-60%, moderate concentric left hypertrophy, moderate to severe aortic stenosis, mild mitral regurgitation, mild tricuspid regurgitation, no pulmonary hypertension. Repeat lab work reveals hemoglobin of 9.5, BUN 25 creatinine 0.53 and potassium 4.9. 06/06: Repeat chest x-ray shows much improvement of heart failure. Patient verbalizes that she is feeling better and breathing is easier today. Weight is down 0.9 kg from yesterday. She thinks that she may be able to be flat for GAVIOTA and heart catheterization which will plan for tomorrow with Dr. Downing. WBC 9.8, hemoglobin 9.6, platelet count 305. CO2 is 35, creatinine 0.69 in BUN 32. Physical exam: Gen: This is a morbidly obese 59-year-old female. She is in a rec liner and appears to be comfortable. No acute distress noted. Afebrile, heart rate 72, blood pressure 139/54, pulse ox 97% on 5 L nasal cannula HEENT: Head is atraumatic, normocephalic. Pupils equal, round. Sclerae is anicteric. NECK: Supple. No JVD. No lymphadenopathy. No thyromegaly. LUNGS: Diminished at the bases with bilateral wheezes and rhonchi. No intercostal retractions. HEART: Regular rate and rhythm. Systolic ejection murmur. ABDOMEN: Morbidly obese. Soft. Bowel sounds are present. No masses. No tenderness. EXTREMITIES: 1+ pedal edema. Chronic venous stasis changes to the lower extremities. NEUROLOGICAL: Patient is awake, alert and oriented x3. Cranial nerves 2 through 12 are grossly intact. Assessment: Acute on chronic diastolic heart failure with pulmonary edema, CTA for possible infiltrate but pulmonary medicine ruled out Chest pain atypical for acute coronary syndrome. EKG was sinus tachycardia with inferior lateral ST depression Diabetes mellitus type 2 Hypertension Hyperlipidemia Peripheral vascular disease COPD Nicotine dependence Severe aortic stenosis Plan: Schedule GAVIOTA and heart catheterization for Friday with Dr. Downing. Continue Lasix 40 mg IV every 8 hours, Lopressor 75 mg twice daily Continue Imdur 30 g daily and atorvastatin 20 g at bedtime Continue lisinopril 20 mg twice daily, amlodipine 5 mg daily Monitor I&O and daily weights, daily electrolytes and renal function Further recommendations to follow based upon clinical course. Respiratory note has been reviewed, I agree with the document and findings and plan of care. Patient was seen and examined. Objective - Vital Signs Vital signs: Vital Signs Temp 97.8 F 06/06/19 07:50 Pulse 72 06/06/19 13:12 Resp 20 06/06/19 07:50 BP 139/54 06/06/19 07:50 Pulse Ox 97 06/06/19 07:50 Intake & Output 06/05/19 06/06/19 06/06/19 18:59 06:59 18:59 Intake Total 720 Output Total 1600 2300 1375 Balance -880 -2300 -1375 Weight 122.6 kg Intake: Oral 720 Output: Urine 1600 2300 1375 Other: Voiding Method Indwelling Catheter Indwelling Catheter Indwelling Catheter - Labs CBC & Chem 7: 06/06/19 05:30 06/06/19 05:30 Labs: Abnormal Lab Results - Last 24 Hours (Table) 06/05/19 06/05/19 06/06/19 Range/Units 16:58 20:18 05:30 RBC (3.80-5.40) m/uL Hgb (11.4-16.0) gm/dL Hct (34.0-46.0) % RDW (11.5-15.5) % Neutrophils # (1.3-7.7) k/uL Carbon Dioxide 35 H (22-30) mmol/L BUN 32 H (7-17) mg/dL Glucose 166 H (74-99) mg/dL POC Glucose (mg/dL) 185 H 346 H (75-99) mg/dL 06/06/19 06/06/19 06/06/19 Range/Units 05:30 05:58 11:52 RBC 3.15 L (3.80-5.40) m/uL Hgb 9.6 L (11.4-16.0) gm/dL Hct 29.7 L (34.0-46.0) % RDW 17.0 H (11.5-15.5) % Neutrophils # 8.2 H (1.3-7.7) k/uL Carbon Dioxide (22-30) mmol/L BUN (7-17) mg/dL Glucose (74-99) mg/dL POC Glucose (mg/dL) 160 H 200 H (75-99) mg/dL Microbiology - Last 24 Hours (Table) 06/03/19 20:05 Blood Culture - Preliminary Blood No Growth after 48 hours
--- NOTE | 2019-06-06 16:07 | P.PN ---
Subjective This is a 59-year-old female with history of CHF, chronic intermittent asthma, hypertension, COPD, diabetes, diabetic neuropathy, obesity with obstructive sleep apnea on a CPAP, hyperlipidemia, CVA/TIA, DVT, gastroesophageal reflux disease, seizure disorder, subarachnoid hemorrhage 2004 with short-term memory deficit, DVT, inferior vena cava filter placement, ongoing nicotine dependence and multiple other medical issues. Presented to the ER via EMS with substernal crushing chest pain, radiating to right upper arm, and bilateral jaws accompa nied by shortness of breath 48 hours and bilateral lower extremity edema. Unable to lie flat. Reports daily use of nitroglycerin and ran out of it yesterday. Hypoxic on EMS arrival, oxygen placed. Prehospital EKG reported diffuse ST segment depression. On arrival to the ER patient was maintaining O2 sats of 89% on 15 L nonrebreather, blood pressure 173/82, tachycardic heart rates in the 110s. EKG in the ER reported sinus tachycardia, inferior lateral ST depression. Troponin negative 1.BNP 400. Recently at cardiology's office, echo performed/being obtained. Cardiology recommended GAVIOTA and cardiac catheterization, patient postponed it. Aspirin administered, Nitroglycerin drip initiated. D-dimer 1.3, coag panel negative. Venous Doppler reported no evidence of DVT in the left leg, evidence for chronic DVT in the right leg in the femoral vein Hemoglobin 10.3 ABGs noted with pH 7.3, CO2 62, bicarb 30. UA negative, mild leukocytosis of 11.2, afebrile. Heparin drip and not initiated secondary to patient's history of intracranial bleed, as recommended per software intern. Chest x-ray reporting moderate pulmonary edema with no definite pleural effusions .Pulmonary embolism ruled out per CTA, bilateral lower lobe infiltrates and atelectasis with increased mediastinal and bronchial adenopathy; multiple paratracheal and anterior mediastinal lymph nodes measuring up to 2 cm, thickening of left and right adrenal gland consistent with hypertrophy reported. Antibiotics given. Cardiology and pulmonary consulted. Evaluated by cardiology with recommendations noted and appreciated. Currently diuresing on Lasix IV push, maintaining O2 sats in the high 80s to low 90s on 5 L of nasal cannula, continues on nitroglycerin drip. BUN 29 creatinine 0.6. 06/05/2019: Patient is feeling better. She is less short of breath. She remained on BiPAP overnight. She remains on 5 L O2 via nasal cannula currently. Audiology, pulmonology, and PMNR seen her. GAVIOTA and cardiac catheterization scheduled for Friday. She remains on IV Lasix Lopressor, Imdur, lisinopril, amlodipine. I'll sign oximetry is 90% on 5 L via nasal cannula. She is afebrile. She denies any chest pains, pressures this time. Shortness of breath with exertion and occasionally at rest. As stated, it is improved. She is a Ronquillo catheter to gravity. She denies any bowel movements past day. She is tolerating her diet. Denies any nausea or vomiting. 06/06/2019: Patient is feeling much better. She remains on oxygen 5 L/m. She remains on Imdur for further disease and furosemide 80 mg IV push every 8 hours for her congestive heart failure. She is on budesonide [facility] for her COPD. He is not had any seizure activity. She denies any chest pains, pressures this time. Shortness of breath is much improved as indicated. She denies any nausea vomiting is tolerating regular diet. Objective - Vital Signs Vital signs: Vital Signs Temp 96.9 F L 06/06/19 12:00 Pulse 72 06/06/19 13:12 Resp 20 06/06/19 12:00 BP 138/64 06/06/19 12:00 Pulse Ox 99 06/06/19 12:00 Intake & Output 06/05/19 06/06/19 06/06/19 18:59 06:59 18:59 Intake Total 720 240 Output Total 1600 2300 1375 Balance -880 -2300 -1135 Weight 122.6 kg Intake: Oral 720 240 Output: Urine 1600 2300 1375 Other: Voiding Method Indwelling Catheter Indwelling Catheter Indwelling Catheter - Exam GENERAL: Sitting up at side of bed, no acute distress, resting effort increased NECK: No JVD. No thyroid enlargement. No LNs CARDIOVASCULAR: S1, S2 regular. Positive systolic murmur over the right sternal border RESPIRATION: Labored, Breath sounds diminished in the bases. No rhonchi or crackles. Positive expiratory wheezing. ABDOMEN: Soft, obese, nontender . No guarding. no masses palpable. No ascites, No hepatosplenomegaly.Bowel sounds heard. LEGS: Positive edema, dry, scaly, discolored -chronic venous stasis +1 edema PSYCHIATRY: Alert and oriented X3, mood and affect normal. NERVOUS SYSTEM: Cranial N 2-12 grossly normal. Short-term memory deficit .Moves all 4 limbs. Diffuse weakness No focal deficits. Strength and sensation grossly intact.. Skin: no lesions, no rash. No calf tenderness Lymphatic system. No LN neck axilla. - Labs CBC & Chem 7: 06/06/19 05:30 06/06/19 05:30 Labs: Abnormal Lab Results - Last 24 Hours (Table) 06/05/19 06/05/19 06/06/19 Range/Units 16:58 20:18 05:30 RBC (3.80-5.40) m/uL Hgb (11.4-16.0) gm/dL Hct (34.0-46.0) % RDW (11.5-15.5) % Neutrophils # (1.3-7.7) k/uL Carbon Dioxide 35 H (22-30) mmol/L BUN 32 H (7-17) mg/dL Glucose 166 H (74-99) mg/dL POC Glucose (mg/dL) 185 H 346 H (75-99) mg/dL 06/06/19 06/06/19 06/06/19 Range/Units 05:30 05:58 11:52 RBC 3.15 L (3.80-5.40) m/uL Hgb 9.6 L (11.4-16.0) gm/dL Hct 29.7 L (34.0-46.0) % RDW 17.0 H (11.5-15.5) % Neutrophils # 8.2 H (1.3-7.7) k/uL Carbon Dioxide (22-30) mmol/L BUN (7-17) mg/dL Glucose (74-99) mg/dL POC Glucose (mg/dL) 160 H 200 H (75-99) mg/dL Microbiology - Last 24 Hours (Table) 06/03/19 20:05 Blood Culture - Preliminary Blood No Growth after 48 hours Assessment and Plan (1) Acute on chronic diastolic (congestive) heart failure Current Visit: Yes Status: Acute Code(s): I50.33 - ACUTE ON CHRONIC DIAST OLIC (CONGESTIVE) HEART FAILURE SNOMED Code(s): 476697899 (2) Aortic stenosis Current Visit: Yes Status: Acute Code(s): I35.0 - NONRHEUMATIC AORTIC (VALVE) STENOSIS SNOMED Code(s): 15132316 (3) Obstructive sleep apnea Current Visit: Yes Status: Acute Code(s): G47.33 - OBSTRUCTIVE SLEEP APNEA (ADULT) (PEDIATRIC) SNOMED Code(s): 47740556 (4) Essential (primary) hypertension Current Visit: Yes Status: Acute Code(s): I10 - ESSENTIAL (PRIMARY) HYPERTENSION SNOMED Code(s): 38036726 (5) Pure hypercholesterolemia Current Visit: Yes Status: Acute Code(s): E78.00 - PURE HYPERCHOLESTEROLEMIA, UNSPECIFIED SNOMED Code(s): 193981218 (6) Seizure disorder as sequela of cerebrovascular accident Current Visit: Yes Status: Acute Code(s): I69.398 - OTHER SEQUELAE OF CEREBRAL INFARCTION; G40.909 - EPILEPSY, UNSP, NOT INTRACTABLE, WITHOUT STATUS EPILEPTICUS SNOMED Code(s): 369200837202019 (7) H/O cerebral aneurysm repair Current Visit: Yes Status: Acute Code(s): Z98.890 - OTHER SPECIFIED POSTPROCEDURAL STATES; Z86.79 - PERSONAL HISTORY OF OTHER DISEASES OF THE C IRCULATORY SYSTEM SNOMED Code(s): 637195722 (8) Diabetes Current Visit: Yes Status: Acute Code(s): E11.9 - TYPE 2 DIABETES MELLITUS WITHOUT COMPLICATIONS SNOMED Code(s): 78578386 (9) Tobacco abuse Current Visit: Yes Status: Acute Code(s): Z72.0 - TOBACCO USE SNOMED Code(s): 864650640 (10) Memory deficit Current Visit: Yes Status: Acute Code(s): R41.3 - OTHER AMNESIA SNOMED Code(s): 649070628 (11) COPD exacerbation Current Visit: Yes Status: Acute Code(s): J44.1 - CHRONIC OBSTRUCTIVE PULMONARY DISEASE W (ACUTE) EXACERBATION SNOMED Code(s): 741356152 Plan: She'll continue on her current medications treatments per cardiology, pulmonology. Including IV Lasix and metoprolol, sublingual Nitrostat, Imdur, atorvastatin, amlodipine 5 cardiology and desonide updrafts, methylprednisolone via pulmonology. R we will wait on her upcoming GAVIOTA and catheterization cardiology see her. She'll continue her glipizide for diabetes along with the NovoLog scale. We'll add long-acting insulin such as Lantus 20 units at at bedtime to help control her diabetes. We will hold her glipizide. repeat labs in a.m. She'll be reevaluated next 24 hours.
[2019-06-06 17:17] LABS: Glucose,Whole Blood 211 mg/dL (75-99)
[2019-06-06 21:23] LABS: Glucose,Whole Blood 289 mg/dL (75-99)
[2019-06-06] MEDS: INSULIN DETEMIR (LEVEMIR) 100 UNIT/ML SYR SQ SCH (21:28)
[2019-06-06] MEDS: ATORVASTATIN 20 MG TAB PO SCH (21:28)
[2019-06-06] MEDS: ALPRAZolam 0.5 MG TAB PO PRN (21:28)
[2019-06-07] MEDS: IPRATROPIUM-ALBUTEROL 3 ML NEB INHALATION PRN (03:21)
[2019-06-07] MEDS: SODIUM CHLORIDE 0.9% 1,000 ML IV SCH ×2 (04:34→21:55)
[2019-06-07] MEDS: METOPROLOL TARTRATE 50 MG TAB PO SCH ×2 (06:04→21:54)
[2019-06-07] MEDS: PHENYTOIN SODIUM EXTENDED 100 MG CAP PO SCH ×3 (06:04→21:54)
[2019-06-07] MEDS: methylPREDNISolone SOD SUCCI 40 MG/ML 1 ML VIAL IV SCH ×2 (06:04→13:27)
[2019-06-07] MEDS: ISOSORBIDE MONONITRATE ER 30 MG TAB.ER.24H PO SCH (06:05)
[2019-06-07] MEDS: CITALOPRAM HYDROBROMIDE 20 MG TAB PO SCH (06:05)
[2019-06-07] MEDS: PANTOPRAZOLE 40 MG TABLET PO SCH (06:05)
[2019-06-07] MEDS: amLODIPine 5 MG TAB PO SCH (06:05)
[2019-06-07] MEDS: LISINOPRIL 20 MG TAB PO SCH ×2 (06:05→21:54)
[2019-06-07] MEDS: ALPRAZolam 0.25 MG TAB PO PRN ×2 (06:09→17:44)
[2019-06-07] MEDS: FUROSEMIDE 10 MG/ML 4 ML VIAL IV SCH (06:10)
[2019-06-07] MEDS: INSULIN ASPART (NovoLOG) 100 UNIT/ML VIAL SQ SCH ×4 (06:19→21:55)
[2019-06-07 06:21] LABS: Basophils % (A) 0 %; Eosinophils # (A) 0.1 k/uL (0-0.7); Eosinophils % (A) 1 %; HCT 31.5 % (34.0-46.0); HGB 10.1 gm/dL (11.4-16.0); Hypochromasia Slight; Lymphocytes # (A) 1.3 k/uL (1.0-4.8); Lymphocytes % (A) 12 %; MCHC 31.9 g/dL (31.0-37.0); MCV 93.8 fL (80.0-100.0); Mean Platelet Volume 6.6; Monocytes # (A) 0.4 k/uL (0-1.0); Monocytes % (A) 4 %; Neutrophils # (A) 8.1 k/uL (1.3-7.7); Neutrophils % (A) 81 %; Platelet Count 343 k/uL (150-450); RBC 3.36 m/uL (3.80-5.40); RDW 15.9 % (11.5-15.5)
[2019-06-07 06:24] LABS: Glucose,Whole Blood 161 mg/dL (75-99)
[2019-06-07 07:07] LABS: African American GFR (CKD) >90 (>60 ml/min/1.73 sqM); Anion Gap 7 mmol/L; Blood Urea Nitrogen 33 mg/dL (7-17); Carbon Dioxide 32 mmol/L (22-30); Chloride 100 mmol/L (98-107); Glucose 164 mg/dL (74-99); Potassium 4.6 mmol/L (3.5-5.1); Sodium 139 mmol/L (137-145)
[2019-06-07] MEDS: BUDESONIDE 1 MG/2 ML NEBU INHALATION SCH ×2 (07:52→19:59)
[2019-06-07] MEDS: IPRATROPIUM-ALBUTEROL 3 ML NEB INHALATION SCH ×4 (07:52→19:59)
[2019-06-07] MEDS: FORMOTEROL FUMARATE 20 MCG/2 ML NEBU INHALATION SCH ×2 (07:52→19:59)
[2019-06-07] MEDS ORDERED: IV FLUID CONTINUATION 1,000 ML IV ONE (11:25)
[2019-06-07] MEDS: MIDAZOLAM (PF) 2 MG/2 ML VIAL IVP ONE ×2 (11:28→11:38)
[2019-06-07] MEDS ORDERED: fentaNYL (PF) 50 MCG/ML 2 ML AMP IVP ONE (11:28)
[2019-06-07] MEDS ORDERED: LIDOCAINE 1% INJ 10MG/ML (20 ML MDV) SQ ONE ×2 (11:31→11:41)
[2019-06-07] MEDS ORDERED: CLOPIDOGREL 75 MG TAB PO ONE (12:13)
[2019-06-07] MEDS ORDERED: BIVALIRUDIN 250 MG in SODIUM CHLORIDE 0.9% 50 ML IV ONE (12:14)
[2019-06-07] MEDS ORDERED: BIVALIRUDIN BOLUS 250 MG/50 ML IV ONE (12:14)
[2019-06-07] MEDS ORDERED: IOPAMIDOL-370 125ML BTL INJ ONE (12:19)
[2019-06-07] MEDS ORDERED: NITROGLYCERIN 1000MCG/10ML SYRINGE INTRACORON ONE (12:30)
[2019-06-07] MEDS ORDERED: ATROPINE SULFATE 0.1 MG/ML 10ML SYRINGE IV PRN (12:44)
[2019-06-07] MEDS ORDERED: NITROGLYCERIN SL TABS 0.4 MG TAB SUBLINGUAL PRN (12:44)
[2019-06-07] MEDS ORDERED: MAG HYDROX/AL HYDROX/SIMETH 30 ML CUP PO PRN (12:44)
[2019-06-07] MEDS ORDERED: RX INFO: IV CONTRAST WAS GIVEN 1 EACH MISC MISCELLANE PRN (12:44)
[2019-06-07] MEDS ORDERED: ZOLPIDEM 5 MG TAB PO PRN (12:44)
[2019-06-07] MEDS ORDERED: SODIUM CHLORIDE 0.9% 1,000 ML IV SCH (12:45)
--- NOTE | 2019-06-07 14:04 | LTR ---
DATE OF SERVICE: 06/07/2019 RE: Itzel Starks Dear Dorian; I performed cardiac catheterization on Itzel Starks. A detailed catheterization note in request of records. In brief, the cardiac catheterization revealed severe stenosis involving the OM branch, which I believe is responsible for her symptoms and patient will undergo angioplasty with stent placement of the same. While she has aortic stenosis, this does not seem to be contributing to her symptoms at this time and it is not bad enough for us to send her to [facility] unless her symptoms persist. Thank you for giving me the privilege to participate in this pleasant lady. Sincerely, MD CURLY Hayes / MIGUELINA: [id number] /
--- NOTE | 2019-06-07 14:04 | CC ---
CARDIAC CATHETERIZATION REPORT INDICATION: Unstable angina. This is a 59-year-old lady with history of aortic stenosis and severe COPD who was to undergo an outpatient cath this , came into hospital on Friday with progressively worsening chest pain. I have been asked to do the heart catheterization and a GAVIOTA. PROCEDURE NOTE: After obtaining informed consent, left heart catheterization and coronary angiogram were performed via the right femoral artery using standard Giovanna catheters. The patient has separate ostia and the circumflex coronary artery was engaged using size 4 Giovanna and LAD with a 3.5. Initially vascular access was attempted in the right groin and we were unsuccessful and I obtained the vascular access uneventfully from the left side. The LAD was engaged using a 3.5 Giovanna. The patient tolerated the procedure well without any obvious immediate complications. FINDINGS: HEMODYNAMICS: Left ventricular end-diastolic pressure is 24 mm. There is a gradient of 30 mm across the aortic valve. LEFT VENTRICULOGRAM: Left ventriculogram is not performed. ANGIOGRAPHIC DATA: LEFT MAIN CORONARY ARTERY: Appears calcified. It is a short vessel. In fact circumflex and LAD seem to have separate origins. LAD shows some moderate atherosclerotic plaque in its midportion. At its worst it seems to be a 40% stenosis. CIRCUMFLEX CORONARY ARTERY: Gives off a large caliber OM branch that shows a focal 80%- 90% stenosis and a second area of ectatic atherosclerotic plaque. RIGHT CORONARY ARTERY: A dominant vessel that shows a moderate area of atherosclerotic plaque in its proximal portion. At its worst, there seems to be a 50% stenosis with some catheter-induced spasm. PLAN: Patient will undergo angioplasty of the OM branch, then we will see how she does. If necessary, do a perfusion study to assess the hemodynamic significance of the right coronary artery lesion. She does not need anything to be done for the aortic valve itself at this time as she only has moderate aortic stenosis and I do not believe this is contributing to her symptoms. MMODL / IJN: [id number] /
--- NOTE | 2019-06-07 14:13 | PTCA ---
PERCUTANEOUSTRANS CORORONARY ANGIOGRAPHY Mrs. Starks is a 59-year-old female with known history of chronic obstructive lung disease, who presented with symptoms of progressive dyspnea, has underwent evaluation by Dr. Downing and subsequent cardiac catheterization, was found to have critical stenosis involving the large obtuse marginal branch. In view of that, recommendation made coronary angioplasty and stenting. The procedure, risks and complications were discussed with the patient who is in full understanding and agreement. PROCEDURE: A 6-Slovenian FR4 guiding catheter introduced into the system after cannulating the left main, a 0.014 balanced medium weight J-wire was advanced across the lesion, positioned distally and the distal obtuse marginal branch. Subsequently, a 3.0 x 12 mm Trek balloon was advanced and one inflation at 10 atmospheres was done. Following that, the balloon was removed and a 3.5 x 38 mm Xience Roxie stent was advanced, deployed and post dilated at 16 atmospheres. After the last inflation, after appropriate wait, the balloon and the guidewire were withdrawn back in the guiding catheter. Images were obtained and repeated. Those images reveal stable successful stenting. At that point, the guiding catheter, the balloon and the guidewire were removed. The sheath was removed. Hemostasis was obtained and deployment of an Angio-Seal. There was no immediate complication. Patient is returned to her room in stable condition. Of note, the patient had dyspnea on exertion, with the inflation that improved at the end of the procedure. She received Angiomax per protocol as well as oral loading dose of clopidogrel. RESULTS: Successful stenting of a large long segment of first obtuse marginal branch with reduction of stenosis from a 90% to 0%. RECOMMENDATION: Patient will be continued on aspirin, Plavix, statin. The importance of dual antiplatelet treatment was discussed with the patient and her family who are in full understanding and agreement. Duration of the procedure is 21 minutes. MMODL / IJN: [id number] /
--- NOTE | 2019-06-07 15:49 | P.PN ---
Subjective Progress Note Date: 06/07/19 This is a 59-year-old female with history of CHF, chronic intermittent asthma, hypertension, COPD, diabetes, diabetic neuropathy, obesity with obstructive sleep apnea on a CPAP, hyperlipidemia, CVA/TIA, DVT, gastroesophageal reflux disease, seizure disorder, subarachnoid hemorrhage 2004 with short-term memory deficit, DVT, inferior vena cava filter placement, ongoing nicotine dependence and multiple other medical issues. Presented to the ER via EMS with substernal crushing chest pain, radiating to right upper arm, and bilateral jaws accompanied by shortness of breath 48 hours and bilateral lower extremity edema. Unable to lie flat. Reports daily use of nitroglycerin and ran out of it yesterday. Hypoxic on EMS arrival, oxygen placed. Prehospital EKG reported diffuse ST segment depression. On arrival to the ER patient was maintaining O2 sats of 89% on 15 L nonrebreather, blood pressure 173/82, tachycardic heart rates in the 110s. EKG in the ER reported sinus tachycardia, inferior lateral ST depression. Troponin negative 1.BNP 400. Recently at cardiology's office, echo performed/being obtained. Cardiology recommended GAVIOTA and cardiac catheterization, patient postponed it. Aspirin administered, Nitroglycerin drip initiated. D-dimer 1.3, coag panel negative. Venous Doppler reported no evidence of DVT in the left leg, evidence for chronic DVT in the right leg in the femoral vein Hemoglobin 10.3 ABGs noted with pH 7.3, CO2 62, bicarb 30. UA negative, mild leukocytosis of 11.2, afebrile. Heparin drip and not initiated secondary to patient's history of intracranial bleed, as recommended per developer advisor. Chest x-ray reporting moderate pulmonary edema with no definite pleural effusions .Pulmonary embolism ruled out per CTA, bilateral lower lobe infiltrates and atelectasis with increased mediastinal and bronchial adenopathy; multiple paratracheal and anterior mediastinal lymph nodes measuring up to 2 cm, thickening of left and right adrenal gland consistent with hypertrophy reported. Antibiotics given. Cardiology and pulmonary consulted. Evaluated by cardiology with recommendations noted and appreciated. Currently diuresing on Lasix IV push, maintaining O2 sats in the high 80s to low 90s on 5 L of nasal cannula, continues on nitroglycerin drip. BUN 29 creatinine 0.6. 06/05/2019: Patient is feeling better. She is less short of breath. She remained on BiPAP overnight. She remains on 5 L O2 via nasal cannula currently. Audiology, pulmonology, and PMNR seen her. GAVIOTA and cardiac catheterization scheduled for Friday. She remains on IV Lasix Lopressor, Imdur, lisinopril, amlodipine. I'll sign oximetry is 90% on 5 L via nasal cannula. She is afebril e. She denies any chest pains, pressures this time. Shortness of breath with exertion and occasionally at rest. As stated, it is improved. She is a Ronquillo catheter to gravity. She denies any bowel movements past day. She is tolerating her diet. Denies any nausea or vomiting. 06/06/2019: Patient is feeling much better. She remains on oxygen 5 L/m. She remains on Imdur for further disease and furosemide 80 mg IV push every 8 hours for her congestive heart failure. She is on budesonide [facility] for her COPD. He is not had any seizure activity. She denies any chest pains, pressures this time. Shortness of breath is much improved as indicated. She denies any nausea vomiting is tolerating regular diet. 06/07/2018 BiPAP at night. Scheduled for GAVIOTA cardiac catheterization today. Telemetry sinus rhythm in a patient with history of underlying paroximal chronic atrial fibrillation with history of filter. Denies chest pain, palpitations this morning.VSS. Maintaining O2 sats in the low 90s on 5 L nasal cannula. Levemir added to medication regimen yesterday, with blood sugars better controlled today. Objective - Vital Signs Vital signs: Vital Signs Temp 97.8 F 06/07/19 06:49 Pulse 56 L 06/07/19 08:20 Resp 18 06/07/19 06:49 BP 139/84 06/07/19 06:49 Pulse Ox 91 L 06/07/19 06:49 Intake & Output 06/06/19 06/07/19 06/07/19 18:59 06:59 18:59 Intake Total 480 Output Total 1375 1400 1000 Balance -895 -1400 -1000 Weight 121.4 kg Intake: Oral 480 Output: Urine 1375 1400 1000 Other: Voiding Method Indwelling Catheter Indwelling Catheter # Bowel Movements 1 - Exam GENERAL: Sitting up at side of bed, no acute distress NECK: No JVD. No thyroid enlargement. No LNs CARDIOVASCULAR: S1, S2 regular. Positive systolic murmur over the right sternal border RESPIRATION: Breath sounds diminished in the bases. Occasional scattered rhonchi, no crackles. Fine expiratory wheezing. ABDOMEN: Soft, obese, nontender. No guarding. no masses palpable. No ascites, No hepatosplenomegaly.Bowel sounds heard. LEGS: Positive edema, dry, scaly, discolored -chronic venous stasis, decreasing mild edema PSYCHIATRY: Alert and oriented X3, mood and affect normal. NERVOUS SYSTEM: Cranial N 2-12 grossly normal. Short-term memory deficit .Moves all 4 limbs. Diffuse weakness No focal deficits. Strength and sensation grossly intact.. Skin: no lesions, no rash. No calf tenderness Lymphatic system. No LN neck axilla. - Labs CBC & Chem 7: 06/07/19 06:07 06/07/19 06:07 Labs: Abnormal Lab Results - Last 24 Hours (Table) 06/06/19 06/06/19 06/06/19 Range/Units 11:52 17:00 21:22 RBC (3.80-5.40) m/uL Hgb (11.4-16.0) gm/dL Hct (34.0-46.0) % RDW (11.5-15.5) % Neutrophils # (1.3-7.7) k/uL Carbon Dioxide (22-30) mmol/L BUN (7-17) mg/dL Glucose (74-99) mg/dL POC Glucose (mg/dL) 200 H 211 H 289 H (75-99) mg/dL 06/07/19 06/07/19 06/07/19 Range/Units 06:07 06:07 06:15 RBC 3.36 L (3.80-5.40) m/uL Hgb 10.1 L (11.4-16.0) gm/dL Hct 31.5 L (34.0-46.0) % RDW 15.9 H (11.5-15.5) % Neutrophils # 8.1 H (1.3-7.7) k/uL Carbon Dioxide 32 H (22-30) mmol/L BUN 33 H (7-17) mg/dL Glucose 164 H (74-99) mg/dL POC Glucose (mg/dL) 161 H (75-99) mg/dL Microbiology - Last 24 Hours (Table) 06/03/19 20:05 Blood Culture - Preliminary Blood No Growth after 72 hours Assessment and Plan Assessment: -Acute on chronic CHF exacerbation, diastolic dysfunction - Possible bilateral lower lobe pulmonary infiltrates, possible community- acquired pneumonia ruled out -Acute COPD exacerbation -Chest pain, rule out acute coronary syndrome. EKG revealing sinus tachycardia with inferior lateral ST depression. -Severe aortic stenosis -Bibasilar atelectasis -Acute on chronic hypoxic, hypercapnic respiratory failure -Chronic persistent asthma -COPD -History of CVA/TIA -Diabetes mellitus -Gastroesophageal reflux disease -History of DVT, chronic DVT of the right femoral vein per Doppler -Hypertension -Hyperlipidemia -Seizure disorder -Sleep apnea, on CPAP -Subarachnoid hemorrhage with short-term memory deficit -Ongoing nicotine dependence -Morbid obesity, BMI 46 -Depression -Increased mediastinal and bronchial adenopathy, compared to prior exam Plan: Continue current medication regime ,monitoring and symptomatic treatment. GAVIOTA and cardiac catheterization pending for today. Diuretics as per cardiology. Smoking cessation readdressed. Maintain nebulized bronchodilators The impression and plan of care has been dictated as directed. : I performed a history and examination of this patient, discussed the same with the dictator. I agree with the dictator's note ,documented as a scribe. Any additional findings or plans will be noted. Time taken: 35 minutes
[2019-06-07 16:57] LABS: Glucose,Whole Blood 266 mg/dL (75-99)
--- NOTE | 2019-06-07 17:33 | P.PN ---
Subjective Progress Note Date: 06/07/19 Principal diagnosis: Acute exacerbation of severe chronic obstructive pulmonary disease The patient is seen today 06/05/2019 in follow-up on the active care unit. She is sitting up at the bedside. Awake and alert in no acute distress. Breathing easier today as compared to yesterday. He was on and off the BiPAP throughout the evening. Currently on 5 L/m per nasal cannula to maintain O2 saturations in the low 90s. She's been afebrile. Hemodynamically stable. Blood culture reveals no growth thus far. White count 9.7. Hemoglobin 9.5. Creatinine 0.53. She remains on DuoNeb inhalations, Pulmicort and Perforomist inhalations, IV Solu-Medrol and being diuresed with Lasix 40 mg IV every 8 hours. Currently in a negative balance. On 06/07/2019 patient seen in follow-up on selective care unit, patient has just returned from her cardiac catheterization and she received a stent to the up to his marginal branch. She is awake and alert, in no acute distress, she states her breathing is stable, significant cough or congestion, lung sounds are clear, diminished at the bases, she remains on 5 L, the pulse ox of 91%. Today's labs have been reviewed. Patient continues on IV steroids, oral Lasix, and nebulized bronchodilators. Objective - Vital Signs Vital signs: Vital Signs Temp 97.8 F 06/07/19 06:49 Pulse 60 06/07/19 13:37 Resp 18 06/07/19 06:49 BP 139/84 06/07/19 06:49 Pulse Ox 91 L 06/07/19 06:49 Intake & Output 06/06/19 06/07/19 06/07/19 18:59 06:59 18:59 Intake Total 480 240 Output Total 1375 1400 1000 Balance -899 -1400 -760 Weight 121.4 kg Intake: Oral 480 240 Output: Urine 1375 1400 1000 Other: Voiding Method Indwelling Catheter Indwelling Catheter # Voids 0 # Bowel Movements 1 0 - Exam GENERAL EXAM: Alert, pleasant, 59-year-old obese white female on 5 L of oxygen with a pulse ox of 91%, comfortable in no apparent distress. HEAD: Normocephalic/atraumatic. EYES: Normal reaction of pupils, equal size. Conjunctiva pink, sclera white. NOSE: Clear with pink turbinates. THROAT: No erythema or exudates. NECK: No masses, no JVD, no thyroid enlargement, no adenopathy. CHEST: No chest wall deformity. Symmetrical expansion. LUNGS: Equal air entry with clear breath sounds were diminished breath sounds at the bases CVS: Regular rate and rhythm, normal S1 and S2, no gallops, no murmurs, no rubs ABDOMEN: Soft, nontender. No hepatosplenomegaly, normal bowel sounds, no guarding or rigidity. EXTREMITIES: No clubbing, no edema, no cyanosis, 2+ pulses and upper and lower extremities. MUSCULOSKELETAL: Muscle strength and tone normal. SPINE: No scoliosis or deformity SKIN: No rashes CENTRAL NERVOUS SYSTEM: Alert and oriented -3. No focal deficits, tone is no rmal in all 4 extremities. PSYCHIATRIC: Alert and oriented -3. Appropriate affect. Intact judgment and insight. - Labs CBC & Chem 7: 06/07/19 06:07 06/07/19 06:07 Labs: Abnormal Lab Results - Last 24 Hours (Table) 06/06/19 06/07/19 06/07/19 Range/Units 21:22 06:07 06:07 RBC 3.36 L (3.80-5.40) m/uL Hgb 10.1 L (11.4-16.0) gm/dL Hct 31.5 L (34.0-46.0) % RDW 15.9 H (11.5-15.5) % Neutrophils # 8.1 H (1.3-7.7) k/uL Carbon Dioxide 32 H (22-30) mmol/L BUN 33 H (7-17) mg/dL Glucose 164 H (74-99) mg/dL POC Glucose (mg/dL) 289 H (75-99) mg/dL 06/07/19 06/07/19 Range/Units 06:15 16:55 RBC (3.80-5.40) m/uL Hgb (11.4-16.0) gm/dL Hct (34.0-46.0) % RDW (11.5-15.5) % Neutrophils # (1.3-7.7) k/uL Carbon Dioxide (22-30) mmol/L BUN (7-17) mg/dL Glucose (74-99) mg/dL POC Glucose (mg/dL) 161 H 266 H (75-99) mg/dL Microbiology - Last 24 Hours (Table) 06/03/19 20:05 Blood Culture - Preliminary Blood No Growth after 72 hours Assessment and Plan Plan: Assessment: #1 Acute exacerbation of chronic obstructive pulmonary disease FEV1 value 27% of predicted. #2 Acute on chronic hypoxic respiratory failure secondary to above. #3 Acute on chronic diastolic congestive heart failure. #4 Obesity. #5 Obstructive sleep apnea on home CPAP. #6 Chronic and ongoing tobacco dependence. #7 Diabetes mellitus. #8 History of seizure disorder. #9 History of brain aneurysm with memory impairment. #10 Hypertension. #11 Hyperlipidemia. #12 Esophageal reflux disease. #13 History of Chava filter placement. Plan: Continue current medical treatment, will switch the patient over to oral prednisone, no significant cough or congestion, continue with nebulized bronchodilators, patient is improving, from pulmonary perspective she can be cleared for discharge home tomorrow if she remains stable, and if she has been c leared by cardiology I performed a history & physical examination of the patient and discussed their management with my nurse practitioner, Sol Joaquin. I reviewed the nurse practitioner's note and agree with the documented findings and plan of care. Lung sounds are positive for clear breath sounds diminished at the bases. The findings and the impression was discussed with the patient. I attest to the documentation by the nurse practitioner. Time with Patient: Less than 30
[2019-06-07] MEDS: FUROSEMIDE 40 MG TAB PO SCH (17:42)
[2019-06-07 21:24] LABS: Glucose,Whole Blood 219 mg/dL (75-99)
[2019-06-07] MEDS: ALPRAZolam 0.5 MG TAB PO PRN (21:54)
[2019-06-07] MEDS: ATORVASTATIN 40 MG TAB PO SCH (21:54)
[2019-06-07] MEDS: INSULIN DETEMIR (LEVEMIR) 100 UNIT/ML SYR SQ SCH (21:55)
[2019-06-08 06:08] LABS: African American GFR (CKD) >90 (>60 ml/min/1.73 sqM); Anion Gap 5 mmol/L; Blood Urea Nitrogen 25 mg/dL (7-17); Calcium 8.9 mg/dL (8.4-10.2); Carbon Dioxide 35 mmol/L (22-30); Chloride 101 mmol/L (98-107); Glucose 107 mg/dL (74-99); Potassium 4.3 mmol/L (3.5-5.1); Sodium 141 mmol/L (137-145)
[2019-06-08 06:39] LABS: Glucose,Whole Blood 114 mg/dL (75-99)
[2019-06-08] MEDS: INSULIN ASPART (NovoLOG) 100 UNIT/ML VIAL SQ SCH ×4 (06:43→20:51)
[2019-06-08] MEDS: BUDESONIDE 1 MG/2 ML NEBU INHALATION SCH ×2 (08:01→18:59)
[2019-06-08] MEDS: FORMOTEROL FUMARATE 20 MCG/2 ML NEBU INHALATION SCH ×2 (08:01→19:09)
[2019-06-08] MEDS: IPRATROPIUM-ALBUTEROL 3 ML NEB INHALATION SCH ×4 (08:01→18:59)
[2019-06-08] MEDS: CITALOPRAM HYDROBROMIDE 20 MG TAB PO SCH (09:16)
[2019-06-08] MEDS: ASPIRIN 81 MG PO SCH (09:16)
[2019-06-08] MEDS: amLODIPine 5 MG TAB PO SCH (09:16)
[2019-06-08] MEDS: FUROSEMIDE 40 MG TAB PO SCH ×2 (09:17→18:05)
[2019-06-08] MEDS: METOPROLOL TARTRATE 50 MG TAB PO SCH ×2 (09:17→20:52)
[2019-06-08] MEDS: ISOSORBIDE MONONITRATE ER 30 MG TAB.ER.24H PO SCH (09:17)
[2019-06-08] MEDS: LISINOPRIL 20 MG TAB PO SCH ×2 (09:17→20:53)
[2019-06-08] MEDS: PANTOPRAZOLE 40 MG TABLET PO SCH (09:18)
[2019-06-08] MEDS: PHENYTOIN SODIUM EXTENDED 100 MG CAP PO SCH ×3 (09:18→23:41)
[2019-06-08] MEDS: predniSONE 20 MG TAB PO SCH (09:19)
[2019-06-08] MEDS: ALPRAZolam 0.25 MG TAB PO PRN ×2 (09:21→18:14)
[2019-06-08 12:00] LABS: Glucose,Whole Blood 136 mg/dL (75-99)
--- NOTE | 2019-06-08 12:07 | P.PN ---
Subjective Progress Note Date: 06/08/19 This is a 59-year-old female with history of CHF, chronic intermittent asthma, hypertension, COPD, diabetes, diabetic neuropathy, obesity with obstructive sleep apnea on a CPAP, hyperlipidemia, CVA/TIA, DVT, gastroesophageal reflux disease, seizure disorder, subarachnoid hemorrhage 2004 with short-term memory deficit, DVT, inferior vena cava filter placement, ongoing nicotine dependence and multiple other medical issues. Presented to the ER via EMS with substernal crushing chest pain, radiating to right upper arm, and bilateral jaws accompanied by shortness of breath 48 hours and bilateral lower extremity edema. Unable to lie flat. Reports daily use of nitroglycerin and ran out of it yesterday. Hypoxic on EMS arrival, oxygen placed. Prehospital EKG reported diffuse ST segment depression. On arrival to the ER patient was maintaining O2 sats of 89% on 15 L nonrebreather, blood pressure 173/82, tachycardic heart rates in the 110s. EKG in the ER reported sinus tachycardia, inferior lateral ST depression. Troponin negative 1.BNP 400. Recently at cardiology's office, echo performed/being obtained. Cardiology recommended GAVIOTA and cardiac catheterization, patient postponed it. Aspirin administered, Nitroglycerin drip initiated. D-dimer 1.3, coag panel negative. Venous Doppler reported no evidence of DVT in the left leg, evidence for chronic DVT in the right leg in the femoral vein Hemoglobin 10.3 ABGs noted with pH 7.3, CO2 62, bicarb 30. UA negative, mild leukocytosis of 11.2, afebrile. Heparin drip and not initiated secondary to patient's history of intracranial bleed, as recommended per dredge or [place] hand. Chest x-ray reporting moderate pulmonary edema with no definite pleural effusions .Pulmonary embolism ruled out per CTA, bilateral lower lobe infiltrates and atelectasis with increased mediastinal and bronchial adenopathy; multiple paratracheal and anterior mediastinal lymph nodes measuring up to 2 cm, thickening of left and right adrenal gland consistent with hypertrophy reported. Antibiotics given. Cardiology and pulmonary consulted. Evaluated by cardiology with recommendations noted and appreciated. Currently diuresing on Lasix IV push, maintaining O2 sats in the high 80s to low 90s on 5 L of nasal cannula, continues on nitroglycerin drip. BUN 29 creatinine 0.6. 06/05/2019: Patient is feeling better. She is less short of breath. She remained on BiPAP overnight. She remains on 5 L O2 via nasal cannula currently. Audiology, pulmonology, and PMNR seen her. GAVIOTA and cardiac catheterization scheduled for Friday. She remains on IV Lasix Lopressor, Imdur, lisinopril, amlodipine. I'll sign oximetry is 90% on 5 L via nasal cannula. She is afebril e. She denies any chest pains, pressures this time. Shortness of breath with exertion and occasionally at rest. As stated, it is improved. She is a Ronquillo catheter to gravity. She denies any bowel movements past day. She is tolerating her diet. Denies any nausea or vomiting. 06/06/2019: Patient is feeling much better. She remains on oxygen 5 L/m. She remains on Imdur for further disease and furosemide 80 mg IV push every 8 hours for her congestive heart failure. She is on budesonide [facility] for her COPD. He is not had any seizure activity. She denies any chest pains, pressures this time. Shortness of breath is much improved as indicated. She denies any nausea vomiting is tolerating regular diet. 06/07/2018 BiPAP at night. Scheduled for GAVIOTA cardiac catheterization today. Telemetry sinus rhythm in a patient with history of underlying paroximal chronic atrial fibrillation with history of filter. Denies chest pain, palpitations this morning.VSS. Maintaining O2 sats in the low 90s on 5 L nasal cannula. Levemir added to medication regimen yesterday, with blood sugars better controlled today. 06/08/2018 status post cardiac catheterization ,angioplasty with successful stenting of the OM yesterday, tolerated procedure well. Scheduled for GAVIOTA today. Telemetry sinus rhythm. Denies chest pain but reports fluttering sensations at times. Maintained on nebulized bronchodilators, systemic steroids, oral Lasix. Used BiPAP last night, maintaining O2 sats in the 90s on 5 L nasal cannula. Objective - Vital Signs Vital signs: Vital Signs Temp 97.4 F L 06/08/19 04:00 Pulse 82 06/08/19 08:22 Resp 18 06/08/19 04:00 BP 142/65 06/08/19 04:00 Pulse Ox 96 06/08/19 04:00 Intake & Output 06/07/19 06/08/19 06/08/19 18:59 06:59 18:59 Intake Total 360 Output Total 1001 1500 Balance -641 -1500 Weight 118.2 kg Intake: Oral 360 Output: Urine 1001 1500 Other: Voiding Method Indwelling Catheter Indwelling Catheter # Voids 0 1 # Bowel Movements 0 - Exam GENERAL: Sitting up in chair, no acute distress NECK: No JVD. No thyroid enlargement. No LNs CARDIOVASCULAR: S1, S2 regular. Positive systolic murmur over the right sternal border RESPIRATION: Breath sounds diminished in the bases. No rhonchi crackles or wheezes ABDOMEN: Soft, obese, nontender. No guarding. no masses palpable. Bowel sounds heard. LEGS: dry, scaly, discolored -chronic venous stasis, no edema PSYCHIATRY: Alert and oriented X3, mood and affect normal. NERVOUS SYSTEM: Cranial N 2-12 grossly normal. Short-term memory deficit .Moves all 4 limbs. Diffuse weakness No focal deficits. Strength and sensation grossly intact.. Skin: no lesions, no rash. No calf tenderness Lymphatic system. No LN neck axilla. - Labs CBC & Chem 7: 06/07/19 06:07 06/08/19 05:39 Labs: Abnormal Lab Results - Last 24 Hours (Table) 06/07/19 06/07/19 06/08/19 Range/Units 16:55 21:23 05:39 Carbon Dioxide 35 H (22-30) mmol/L BUN 25 H (7-17) mg/dL Glucose 107 H (74-99) mg/dL POC Glucose (mg/dL) 266 H 219 H (75-99) mg/dL 06/08/19 Range/Units 06:38 Carbon Dioxide (22-30) mmol/L BUN (7-17) mg/dL Glucose (74-99) mg/dL POC Glucose (mg/dL) 114 H (75-99) mg/dL Microbiology - Last 24 Hours (Table) 06/03/19 20:05 Blood Culture - Preliminary Blood No Growth after 96 hours Assessment and Plan Assessment: -Acute on chronic CHF exacerbation, diastolic dysfunction - Possible bilateral lower lobe pulmonary infiltrates, possible community- acquired pneumonia ruled out -Acute COPD exacerbation -Chest pain, rule out acute coronary syndrome. EKG revealing sinus tachycardia with inferior lateral ST depression. Status post cardiac catheterization, angioplasty with stenting of the OM. -Severe aortic stenosis -Bibasilar atelectasis -Acute on chronic hypoxic, hypercapnic respiratory failure -Chronic persistent asthma -COPD -History of CVA/TIA -Diabetes mellitus -Gastroesophageal reflux disease -History of DVT, chronic DVT of the right femoral vein per Doppler -Hypertension -Hyperlipidemia -Seizure disorder -Sleep apnea, on CPAP -Subarachnoid hemorrhage with short-term memory deficit -Ongoing nicotine dependence -Morbid obesity, BMI 46 -Depression -Increased mediastinal and bronchial adenopathy, compared to prior exam Plan: Continue current medication regime ,monitoring and symptomatic treatment. GAVIOTA pending for today. Currently maintained on oral diuretics. Continue with nebulized bronchodilators. Steroid tapering as per pulmonary. Smoking cessation readdressed. The impression and plan of care has been dictated as directed. : I performed a history and examination of this patient, discussed the same with the dictator. I agree with the dictator's note ,documented as a scribe. Any additional findings or plans will be noted. Time taken: 35 minutes
--- NOTE | 2019-06-08 12:16 | P.PN ---
Subjective Progress Note Date: 06/08/19 Principal diagnosis: Acute exacerbation of severe chronic obstructive pulmonary disease along with acute pulmonary edema and valvular heart disease. The patient is seen today 06/08/2019 in follow-up on the selective care unit. She is currently sitting up in a chair at the bedside. Awake and alert in no acute distress. She denies any worsening shortness of breath, cough or co ngestion. She is currently off the BiPAP and on 5 L high flow nasal cannula. She's afebrile. Hemodynamically stable. she did undergo cardiac catheterization yesterdayand subsequent stenting of a large long segment of the first obtuse marginal branch reduced stenosis from 90% to 0%. The patient also has severe aortic stenosis and the plan is for a GAVIOTA today.sodium 141. Potassium 4.3. BUN 25. Creatinine 0.65. Objective - Vital Signs Vital signs: Vital Signs Temp 97.4 F L 06/08/19 04:00 Pulse 88 06/08/19 12:04 Resp 18 06/08/19 04:00 BP 142/65 06/08/19 04:00 Pulse Ox 96 06/08/19 04:00 Intake & Output 06/07/19 06/08/19 06/08/19 18:59 06:59 18:59 Intake Total 360 Output Total 1001 1500 Balance -641 -1500 Weight 118.2 kg Intake: Oral 360 Output: Urine 1001 1500 Other: Voiding Method Indwelling Catheter Indwelling Catheter # Voids 0 1 # Bowel Movements 0 - Exam GENERAL EXAM: Alert, pleasant 59-year-old female patient, comfortable in no apparent distress. On 5 L nasal cannula alternating with BiPAP. HEAD: Normocephalic. EYES: Normal reaction of pupils, equal size. NOSE: Clear with pink turbinates. THROAT: No erythema or exudates. NECK: No masses, no JVD. CHEST: No chest wall deformity. LUNGS: Equal air entry with bilateral end expiratory wheeze, crackles in the posterior bases CVS: S1 and S2 normal with no audible murmur, regular rhythm. ABDOMEN: No hepatosplenomegaly, normal bowel sounds, no guarding or rigidity. SPINE: No scoliosis or deformity SKIN: No rashes CENTRAL NERVOUS SYSTEM: No focal deficits, tone is normal in all 4 extremities. EXTREMITIES: There is 1+ peripheral edema. No clubbing, no cyanosis. Peripheral pulses are intact. - Labs CBC & Chem 7: 06/07/19 06:07 06/08/19 05:39 Labs: Abnormal Lab Results - Last 24 Hours (Table) 06/07/19 06/07/19 06/08/19 Range/Units 16:55 21:23 05:39 Carbon Dioxide 35 H (22-30) mmol/L BUN 25 H (7-17) mg/dL Glucose 107 H (74-99) mg/dL POC Glucose (mg/dL) 266 H 219 H (75-99) mg/dL 06/08/19 06/08/19 Range/Units 06:38 11:28 Carbon Dioxide (22-30) mmol/L BUN (7-17) mg/dL Glucose (74-99) mg/dL POC Glucose (mg/dL) 114 H 136 H (75-99) mg/dL Microbiology - Last 24 Hours (Table) 06/03/19 20:05 Blood Culture - Preliminary Blood No Growth after 96 hours Assessment and Plan Assessment: Impression: #1 Acute exacerbation of chronic obstructive pulmonary disease FEV1 value 27% of predicted. #2 Acute on chronic hypoxic respiratory failure secondary to above. #3 Acute on chronic diastolic congestive heart failure. Cardiac catheterization revealed a large long segment of stenosis of the obtuse marginal branch with loomis bsequent stenting. The plan is for GAVIOTA today for severe aortic stenosis. #4 Obesity. #5 Obstructive sleep apnea on home CPAP. #6 Chronic and ongoing tobacco dependence. #7 Diabetes mellitus. #8 History of seizure disorder. #9 History of brain aneurysm with memory impairment. #10 Hypertension. #11 Hyperlipidemia. #12 Esophageal reflux disease. #13 History of Chava filter placement. Plan: The patient was seen and evaluated by Dr. Zaragoza. She is currently stable from the pulmonary standpoint. We'll continue with the current plan. She did undergo stenting of the obtuse marginal branch yesterday. The plan is for GAVIOTA today for the severe aortic stenosis. We'll increase her activity as tolerated. We'll continue to follow make further recommendations based on her clinical status. I, the cosigning physician, performed a history & physical examination of the patient. Lungs sounds with bilateral end expiratory wheeze, crackles in the posterior bases. Maintaining good O2 saturations in the 90s on 5 liters per minute per nasal cannula alternating with BiPAP. I discussed the assessment and plan of care with my nurse practitioner, Samantha Devi. I attest to the above note as dictated by her.
[2019-06-08] MEDS: CLOPIDOGREL 75 MG TAB PO SCH (13:28)
[2019-06-08] MEDS: BENZOCAINE SPRAY 1 CAN MUCOUS MEM ONE ×2 (14:15→14:18)
[2019-06-08] MEDS ORDERED: MIDAZOLAM (PF) 2 MG/2 ML VIAL IVP ONE (14:21)
[2019-06-08] MEDS ORDERED: SODIUM CHLORIDE 0.9% 500 ML 500 ML IV ONE (14:30)
--- NOTE | 2019-06-08 14:51 | ECHOT ---
TRANSESOPHAGEAL ECHOCARDIOGRAM INDICATION: Aortic stenosis. PROCEDURE NOTE: After obtaining informed consent, transesophageal echocardiogram was performed in left lateral position using an Omni plane probe. Local and IV sedation were obtained using Xylocaine spray and Versed. Patient tolerated the procedure well without any obvious immediate complications. Patient received moderate conscious sedation. Total sedation time was 11 minute. FINDINGS: 1. Aortic valve is a bicuspid valve, appears heavily calcified with severe restriction in leaflet mobility. Aortic valve area by planimetry technique varies between 0.5 and 0.8 cm2 suggestive of severe aortic stenosis. There is trace aortic regurgitation noted. 2. Aortic root does not appear dilated. 3. Mitral valve is anatomically normal. There is mild mitral regurgitation noted. 4. Tricuspid valve shows mild to moderate tricuspid regurgitation. 5. Left ventricle has normal size and systolic function. 6. Left atrium appears mildly enlarged. 7. Right atrium and right ventricle appear enlarged. 8. Interatrial septum, there is no evidence of left to right shunt by color-flow Doppler or [id number] shunt by agitated saline contrast study. 9. There is [id number] atherosclerotic changes noted. CONCLUSION: 1. Severe aortic stenosis involving a bicuspid aortic valve. 2. Normal left ventricular systolic function. PLAN: Patient needs aortic valve replacement given her severe COPD. She will benefit from TAVR. I will set this up in the outpatient. MMODL / IJN: [id number] /
[2019-06-08 17:02] LABS: Glucose,Whole Blood 250 mg/dL (75-99)
[2019-06-08 20:36] LABS: Glucose,Whole Blood 162 mg/dL (75-99)
[2019-06-08] MEDS: ATORVASTATIN 40 MG TAB PO SCH (20:52)
[2019-06-08] MEDS: INSULIN DETEMIR (LEVEMIR) 100 UNIT/ML SYR SQ SCH (21:47)
[2019-06-09 06:17] LABS: Glucose,Whole Blood 125 mg/dL (75-99)
[2019-06-09] MEDS: INSULIN ASPART (NovoLOG) 100 UNIT/ML VIAL SQ SCH ×2 (06:18→12:14)
[2019-06-09 08:03] VITALS: RESP 18
[2019-06-09] MEDS: amLODIPine 5 MG TAB PO SCH (08:07)
[2019-06-09] MEDS: CITALOPRAM HYDROBROMIDE 20 MG TAB PO SCH (08:07)
[2019-06-09] MEDS: ASPIRIN 81 MG PO SCH (08:07)
[2019-06-09] MEDS: PHENYTOIN SODIUM EXTENDED 100 MG CAP PO SCH (08:07)
[2019-06-09] MEDS: CLOPIDOGREL 75 MG TAB PO SCH (08:07)
[2019-06-09] MEDS: predniSONE 20 MG TAB PO SCH (08:07)
[2019-06-09] MEDS: PANTOPRAZOLE 40 MG TABLET PO SCH (08:07)
[2019-06-09] MEDS: ISOSORBIDE MONONITRATE ER 30 MG TAB.ER.24H PO SCH (08:07)
[2019-06-09] MEDS: METOPROLOL TARTRATE 50 MG TAB PO SCH (08:07)
[2019-06-09] MEDS: LISINOPRIL 20 MG TAB PO SCH (08:08)
[2019-06-09] MEDS: FUROSEMIDE 40 MG TAB PO SCH (08:08)
[2019-06-09] MEDS: SODIUM CHLORIDE 0.9% 1,000 ML IV SCH (08:12)
[2019-06-09] MEDS: BUDESONIDE 1 MG/2 ML NEBU INHALATION SCH (09:44)
[2019-06-09] MEDS: FORMOTEROL FUMARATE 20 MCG/2 ML NEBU INHALATION SCH (09:44)
[2019-06-09] MEDS: IPRATROPIUM-ALBUTEROL 3 ML NEB INHALATION SCH ×2 (09:44→13:05)
[2019-06-09] MEDS: ALPRAZolam 0.25 MG TAB PO PRN (09:57)
[2019-06-09 11:17] VITALS: BP 102/50; TEMP 97.6
--- NOTE | 2019-06-09 11:29 | P.PN ---
Subjective Progress Note Date: 06/09/19 This is a 59-year-old female with history of severe COPD who was admitted recently with the shortness of breath and evidence of pulmonary edema. Patient subsequently had a cardiac catheterization and was found to have significant disease involving the OM branch and had stent placement. She is known to have aortic stenosis. She had a GAVIOTA examination yesterday which she suggestive of a bicuspid aortic valve with severe stenosis. She is being considered for possible transarterial valve replacement. She is critically stable. No complaints of chest pain or shortness of breath. Lungs appeared to be clear. She is being sent to a rehab center and will have follow-up at [facility] for valve replacement. Patient will follow with Dr. Downing as an outpatient. Objective - Vital Signs Vital signs: Vital Signs Temp 97.6 F 06/09/19 11:16 Pulse 62 06/09/19 11:16 Resp 18 06/09/19 11:16 BP 102/50 06/09/19 11:16 Pulse Ox 97 06/09/19 11:16 Intake & Output 06/08/19 06/09/19 06/09/19 18:59 06:59 18:59 Intake Total 270 180 Output Total 1250 1400 500 Balance -980 -1400 -320 Weight 117.3 kg Intake: IV 150 Oral 120 180 Output: Urine 1250 1400 500 Uretheral (Ronquillo) 1250 1400 500 Other: Voiding Method Indwelling Catheter Indwelling Catheter # Voids 0 # Bowel Movements 0 - Exam GENERAL EXAM: Patient is alert and oriented and doesn't appear to be in any acute distress HEENT: Normocephalic. Normal reaction of pupils, equal size, normal range of extraocular motion. No erythema or exudates in the throat. NECK: No masses, no nuchal rigidity. CHEST: No chest wall deformity. LUNGS: Equal air entry with no crackles or wheeze. HEART: S1 and S2 normal with systolic murmur ABDOMEN: No hepatosplenomegaly, normal bowel sounds, no guarding or rigidity. SKIN: No rashes CENTRAL NERVOUS SYSTEM: No focal deficits. EXTREMITIES: No cyanosis, clubbing or edema. - Labs CBC & Chem 7: 06/07/19 06:07 06/08/19 05:39 Labs: Abnormal Lab Results - Last 24 Hours (Table) 06/08/19 06/08/19 06/08/19 Range/Units 11:28 16:59 20:35 POC Glucose (mg/dL) 136 H 250 H 162 H (75-99) mg/dL 06/09/19 Range/Units 06:09 POC Glucose (mg/dL) 125 H (75-99) mg/dL Microbiology - Last 24 Hours (Table) 06/03/19 20:05 Blood Culture - Preliminary Blood No Growth after 120 hours Assessment and Plan (1) Acute on chronic diastolic (congestive) heart failure Current Visit: Yes Status: Acute Code(s): I50.33 - ACUTE ON CHRONIC DIASTOLIC (CONGESTIVE) HEART FAILURE SNOMED Code(s): 116353830 (2) Aortic stenosis Current Visit: Yes Status: Acute Code(s): I35.0 - NONRHEUMATIC AORTIC (VALVE) STENOSIS SNOMED Code(s): 53781820 (3) COPD exacerbation Current Visit: Yes Status: Acute Code(s): J44.1 - CHRONIC OBSTRUCTIVE PULMONARY DISEASE W (ACUTE) EXACERBATION SNOMED Code(s): 747892358 (4) Essential (primary) hypertension Narrative/Plan: Patient is critically stable. Being discharged home. Follow-up with Dr. Downing Current Visit: Yes Status: Acute Code(s): I10 - ESSENTIAL (PRIMARY) HYP ERTENSION SNOMED Code(s): 52862783
--- NOTE | 2019-06-09 11:44 | P.DS ---
Providers Date of admission: 06/03/19 20:51 Expected date of discharge: 06/09/19 Attending physician: Rome Astudillo Consults: 06/03/19 20:50 Consult Physician Routine Consulting Provider: Roberto Zaragoza Consult Reason/Comments: dyspnea Do you want consulting provider notified?: Yes Consult Physician Routine Consulting Provider: Christina Li Consult Reason/Comments: heart failure Do you want consulting provider notified?: Yes 06/04/19 14:24 Consult Physician Routine Consulting Provider: Murphy Mckenna Consult Reason/Comments: eval for inpatient rehab Do you want consulting provider notified?: Yes 06/07/19 12:44 Consult Physician Routine Consulting Provider: [facility] Consult Reason/Comments: Post Interventional patient Do you want consulting provider notified?: Already Contacted Primary care physician: Rome Astudillo Hospital Course: Final Diagnoses: -Acute on chronic CHF exacerbation, diastolic dysfunction - Possible bilateral lower lobe pulmonary infiltrates, possible community- acquired pneumonia ruled out -Acute COPD exacerbation -Chest pain, rule out acute coronary syndrome. EKG revealing sinus tachycardia with inferior lateral ST depression. Status post cardiac catheterization, angioplasty with stenting of the OM. -Severe aortic stenosis -Bibasilar atelectasis -Acute on chronic hypoxic, hypercapnic respiratory failure -Chronic persistent asthma -COPD -History of CVA/TIA -Diabetes mellitus -Gastroesophageal reflux disease -History of DVT, chronic DVT of the right femoral vein per Doppler -Hypertension -Hyperlipidemia -Seizure disorder -Sleep apnea, on CPAP -Subarachnoid hemorrhage with short-term memory deficit -Ongoing nicotine dependence -Morbid obesity, BMI 46 -Depression -Increased mediastinal and bronchial adenopathy, compared to prior exam Hospital course:This is a 59-year-old female with history of CHF, chronic intermittent asthma, hypertension, COPD, diabetes, diabetic neuropathy, obesity with obstructive sleep apnea on a CPAP, hyperlipidemia, CVA/TIA, DVT, gastroesophageal reflux disease, seizure disorder, subarachnoid hemorrhage 2004 with short-term memory deficit, DVT, inferior vena cava filter placement, ongoing nicotine dependence and multiple other medical issues. Presented to the ER via EMS with substernal crushing chest pain, radiating to right upper arm, and bilateral jaws accompanied by shortness of breath 48 hours and bilateral lower extremity edema. Unable to lie flat. Reports daily use of nitroglycerin and ran out of it yesterday. Hypoxic on EMS arrival, oxygen placed. Prehospital EKG reported diffuse ST segment depression. On arrival to the ER patient was maintaining O2 sats of 89% on 15 L nonrebreather, blood pressure 173/82, tachycardic heart rates in the 110s. EKG in the ER reported sinus tachycardia, inferior lateral ST depression. Troponin negative 1.BNP 400. Recently at cardiology's office, echo performed/being obtained. Cardiology recommended GAVIOTA and cardiac catheterization, patient postponed it. Aspirin administered, Nitroglycerin drip initiated. D-dimer 1.3, coag panel negative. Venous Doppler reported no evidence of DVT in the left leg, evidence for chronic DVT in the right leg in the femoral vein Hemoglobin 10.3 ABGs noted with pH 7.3, CO2 62, bicarb 30. UA negative, mild leukocytosis of 11.2, afebrile. Heparin drip and not initiated secondary to patient's history of intracranial bleed, as recommended per forensics analyst. Chest x-ray reporting moderate pulmonary edema with no definite pleural effusions .Pulmonary embolism ruled out per CTA, bilateral lower lobe infiltrates and atelectasis with increased mediastinal and bronchial adenopathy; multiple paratracheal and anterior mediastinal lymph nodes measuring up to 2 cm, thickening of left and right adrenal gland consistent with hypertrophy reported. Antibiotics given. Cardiology and pulmonary consulted. Evaluated by cardiology with recommendations noted and appreciated. Currently diuresing on Lasix IV push, maintaining O2 sats in the high 80s to low 90s on 5 L of nasal cannula, continues on nitroglycerin drip. BUN 29 creatinine 0.6. 06/05/2019: Patient is feeling better. She is less short of breath. She remained on BiPAP overnight. She remains on 5 L O2 via nasal cannula currently. Audiology, pulmonology, and PMNR seen her. GAVIOTA and cardiac catheterization scheduled for Friday. She remains on IV Lasix Lopressor, Imdur, lisinopril, amlodipine. I'll sign oximetry is 90% on 5 L via nasal cannula. She is afebrile. She denies any chest pains, pressures this time. Shortness of breath with exertion and occasionally at rest. As stated, it is improved. She is a Ronquillo catheter to gravity. She denies any bowel movements past day. She is tolerating her diet. Denies any nausea or vomiting. 06/06/2019: Patient is feeling much better. She remains on oxygen 5 L/m. She remains on Imdur for further disease and furosemide 80 mg IV push every 8 hours for her congestive heart failure. [facility] her [facility]. He is not had any seizure activity. She denies any chest pains, pressures this time. Shortness of breath is much improved as indicated. She denies any nausea vomiting is tolerating regular diet. 06/07/2018 BiPAP at night. Scheduled for GAVIOTA cardiac catheterization today. Telemetry sinus rhythm in a patient with history of underlying paroximal chronic atrial fibrillation with history of filter. Denies chest pain, palpitations this morning.VSS. Maintaining O2 sats in the low 90s on 5 L nasal cannula. Levemir added to medication regimen yesterday, with blood sugars better controlled today. 06/08/2018 status post cardiac catheterization ,angioplasty with successful stenting of the OM yesterday, tolerated procedure well. Scheduled for GAVIOTA today. Telemetry sinus rhythm. Denies chest pain but reports fluttering sensations at times. Maintained on nebulized bronchodilators, systemic steroids , oral Lasix. Used BiPAP last night, maintaining O2 sats in the 90s on 5 L nasal cannula. GAVIOTA reporting severe stenosis involving bicuspid aortic valve with normal left ventricular systolic function, no shunting. Cleared by cardiology for discharge. Significant clinical improvement. Patient is being discharged to [facility] subacute rehab in stable condition with guarded prognosis. - Exam GENERAL: Alert and oriented 3, no acute distress CARDIOVASCULAR: S1, S2 regular. Positive systolic murmur over the right sternal border RESPIRATION: Breath sounds diminished in the bases. No rhonchi crackles or wheezes ABDOMEN: Soft, obese, nontender. No guarding. no masses palpable. Bowel sounds heard. NERVOUS SYSTEM: No focal deficits. The impression and plan of care has been dictated as directed. : I performed a history and examination of this patient, discussed the same with the dictator. I agree with the dictator's note ,documented as a scribe. Any additional findings or plans will be noted. Patient Condition at Discharge: Stable Plan - Discharge Summary Discharge Rx Participant: No New Discharge Prescriptions: New Aspirin 81 mg PO DAILY chew Ipratropium-Albuterol Nebulize [Duoneb 0.5 mg-3 mg/3 ml Soln] 3 ml INHALATION RT-QID ampul.neb Ipratropium-Albuterol Nebulize [Duoneb 0.5 mg-3 mg/3 ml Soln] 3 ml INHALATION Q4H PRN ampul.neb PRN Reason: Shortness Of Breath Or Wheezing Furosemide [Lasix] 40 mg PO BID@0900,1600 tab Clopidogrel [Plavix] 75 mg PO DAILY tab predniSONE 10 mg PO DIRECTED #30 tab Pantoprazole [Protonix] 40 mg PO DAILY tablet. Acetaminophen Tab [Tylenol] 650 mg PO Q6HR PRN tab PRN Reason: Fever And/ Or Pain Lisinopril [Zestril] 20 mg PO BID tab INSULIN LISPRO (HumaLOG) [humaLOG] 0 unit SQ ACHS #1 vial Budesonide-Formot 160-4.5 Mcg [Symbicort 160-4.5 Mcg Inhaler] 2 puff INHALATION BID #1 inhaler Continue metFORMIN HCL 1,000 mg PO BID Simvastatin [Zocor] 40 mg PO HS Phenytoin Sodium Extended [Dilantin] 200 mg PO TID Metoprolol Tartrate [Lopressor] 75 mg PO BID glipiZIDE XL [Glucotrol XL] 10 mg PO DAILY Citalopram Hydrobromide [CeleXA] 20 mg PO DAILY amLODIPine [Norvasc] 5 mg PO DAILY #30 tab Isosorbide Mononitrate ER [Imdur] 30 mg PO DAILY Discontinued Furosemide [Lasix] 40 mg PO BID Enalapril [Vasotec] 10 mg PO BID Lisinopril [Zestril] 2.5 mg PO DAILY Omeprazole [PriLOSEC] 10 mg PO BID Discharge Medication List Citalopram Hydrobromide [CeleXA] 20 mg PO DAILY 05/25/15 [History] Metoprolol Tartrate [Lopressor] 75 mg PO BID 05/25/15 [History] Phenytoin Sodium Extended [Dilantin] 200 mg PO TID 05/25/15 [History] Simvastatin [Zocor] 40 mg PO HS 05/25/15 [History] glipiZIDE XL [Glucotrol XL] 10 mg PO DAILY 05/25/15 [History] metFORMIN HCL 1,000 mg PO BID 05/25/15 [History] amLODIPine [Norvasc] 5 mg PO DAILY #30 tab 09/17/15 [Rx] Isosorbide Mononitrate ER [Imdur] 30 mg PO DAILY 06/03/19 [History] Acetaminophen Tab [Tylenol] 650 mg PO Q6HR PRN tab 06/09/19 [Rx] Aspirin 81 mg PO DAILY chew 06/09/19 [Rx] Budesonide-Formot 160-4.5 Mcg [Symbicort 160-4.5 Mcg Inhaler] 2 puff INHALATION BID #1 inhaler 06/09/19 [Rx] Clopidogrel [Plavix] 75 mg PO DAILY tab 06/09/19 [Rx] Furosemide [Lasix] 40 mg PO BID@0900,1600 tab 06/09/19 [Rx] INSULIN LISPRO (HumaLOG) [humaLOG] 0 unit SQ ACHS #1 vial 06/09/19 [Rx] Ipratropium-Albuterol Nebulize [Duoneb 0.5 mg-3 mg/3 ml Soln] 3 ml INHALATION Q4H PRN ampul.neb 06/09/19 [Rx] Ipratropium-Albuterol Nebulize [Duoneb 0.5 mg-3 mg/3 ml Soln] 3 ml INHALATION RT-QID ampul.neb 06/09/19 [Rx] Lisinopril [Zestril] 20 mg PO BID tab 06/09/19 [Rx] Pantoprazole [Protonix] 40 mg PO DAILY tablet. 06/09/19 [Rx] predniSONE 10 mg PO DIRECTED #30 tab 06/09/19 [Rx] Follow up Appointment(s)/Referral(s): Rome Astudillo MD [Primary Care Provider] - 1-2 days Activity/Diet/Wound Care/Special Instructions: [facility] Diet: Cardiac, consistent carb Activity: As tolerated CBC, BMP in 3 days Discharge Disposition: TRANSFER TO SNF/ECF
[2019-06-09 11:47] LABS: Glucose,Whole Blood 161 mg/dL (75-99)
[2019-06-09 13:08] VITALS: PULSE 76
--- NOTE | 2019-06-09 17:11 | P.PN ---
Subjective Progress Note Date: 06/09/19 Principal diagnosis: Acute exacerbation of severe chronic obstructive pulmonary disease The patient is seen today 06/05/2019 in follow-up on the active care unit. She is sitting up at the bedside. Awake and alert in no acute distress. Breathing easier today as compared to yesterday. He was on and off the BiPAP throughout the evening. Currently on 5 L/m per nasal cannula to maintain O2 saturations in the low 90s. She's been afebrile. Hemodynamically stable. Blood culture reveals no growth thus far. White count 9.7. Hemoglobin 9.5. Creatinine 0.53. She remains on DuoNeb inhalations, Pulmicort and Perforomist inhalations, IV Solu-Medrol and being diuresed with Lasix 40 mg IV every 8 hours. Currently in a negative balance. On 06/07/2019 patient seen in follow-up on selective care unit, patient has just returned from her cardiac catheterization and she received a stent to the up to his marginal branch. She is awake and alert, in no acute distress, she states her breathing is stable, significant cough or congestion, lung sounds are clear, diminished at the bases, she remains on 5 L, the pulse ox of 91%. Today's labs have been reviewed. Patient continues on IV steroids, oral Lasix, and nebulized bronchodilators. On 06/09/2019 patient seen in follow-up on selective care unit, she is sitting up in the chair, in no acute distress, she is status post PTCA and stenting of the obtuse marginal branch. No cognitive chest pain, she remains on 5 L of ox ygen with a pulse ox of 97%, his been afebrile, hemodynamically patient has been stable, her breathing has improved, no significant wheezing or cough or congestion, but culture showed no growth. Clinically stable, and discharge planning is in progress for discharge to [facility] facility in [place]. Objective - Vital Signs Vital signs: Vital Signs Temp 97.6 F 06/09/19 11:16 Pulse 76 06/09/19 13:18 Resp 18 06/09/19 11:16 BP 102/50 06/09/19 11:16 Pulse Ox 97 06/09/19 11:16 Intake & Output 06/08/19 06/09/19 06/09/19 18:59 06:59 18:59 Intake Total 270 380 Output Total 1250 1400 500 Balance -980 -1400 -120 Weight 117.3 kg Intake: IV 150 Oral 120 380 Output: Urine 1250 1400 500 Uretheral (Ronquillo) 1250 1400 500 Other: Voiding Method Indwelling Catheter Indwelling Catheter # Voids 0 3 # Bowel Movements 0 - Exam GENERAL EXAM: Alert, pleasant, 59-year-old obese white female on 5 L of oxygen with a pulse ox of 97%, comfortable in no apparent distress. HEAD: Normocephalic/atraumatic. EYES: Normal reaction of pupils, equal size. Conjunctiva pink, sclera white. NOSE: Clear with pink turbinates. THROAT: No erythema or exudates. NECK: No masses, no JVD, no thyroid enlargement, no adenopathy. CHEST: No chest wall deformity. Symmetrical expansion. LUNGS: Equal air entry with clear breath sounds were diminished breath sounds at the bases CVS: Regular rate and rhythm, normal S1 and S2, no gallops, no murmurs, no rubs ABDOMEN: Soft, nontender. No hepatosplenomegaly, normal bowel sounds, no guarding or rigidity. EXTREMITIES: No clubbing, no edema, no cyanosis, 2+ pulses and upper and lower extremities. MUSCULOSKELETAL: Muscle strength and tone normal. SPINE: No scoliosis or deformity SKIN: No rashes CENTRAL NERVOUS SYSTEM: Alert and oriented -3. No focal deficits, tone is normal in all 4 extremities. PSYCHIATRIC: Alert and oriented -3. Appropriate affect. Intact judgment and insight. - Labs CBC & Chem 7: 06/07/19 06:07 06/08/19 05:39 Labs: Abnormal Lab Results - Last 24 Hours (Table) 06/08/19 06/09/19 06/09/19 Range/Units 20:35 06:09 11:39 POC Glucose (mg/dL) 162 H 125 H 161 H (75-99) mg/dL Microbiology - Last 24 Hours (Table) 06/03/19 20:05 Blood Culture - Preliminary Blood No Growth after 120 hours Assessment and Plan Plan: Assessment: #1 Acute exacerbation of chronic obstructive pulmonary disease FEV1 value 27% of predicted. #2 Acute on chronic hypoxic respiratory failure secondary to above. #3 Acute on chronic diastolic congestive heart failure. #4 Obesity. #5 Obstructive sleep apnea on home CPAP. #6 Chronic and ongoing tobacco dependence. #7 Diabetes mellitus. #8 History of seizure disorder. #9 History of brain aneurysm with memory impairment. #10 Hypertension. #11 Hyperlipidemia. #12 Esophageal reflux disease. #13 History of [place] filter placement. Plan: Patient is stable, breathing has improved, wean FiO2 to home dose FiO2, no acute events overnight, no complex of chest pain, patient is stable for discharge to ECF facility in [place] today, patient has a follow-up appointment with Dr. Zaragoza in October 2019. I performed a history & physical examination of the patient and discussed their management with my nurse practitioner, Sol Joaquin. I reviewed the nurse practitioner's note and agree with the documented findings and plan of care. Lung sounds are positive for clear breath sounds diminished at the bases. The findings and the impression was discussed with the patient. I attest to the documentation by the nurse practitioner. Time with Patient: Less than 30
--- NOTE | 2019-06-10 09:18 | CDI ---
Documentation Clarification Form Date: 06/10/19 From: Rose Mary Khan Phone: If you have a question regarding this query, please contact Molly Rodriguez at [phone] between 8am and 5pm. Admit Date: 06/03/2019 8:51:00 PM Patient Name: Itzel Starks Visit Number: [id number] Discharge Date: 06/09/2019 4:01:00 PM ATTENTION: The Clinical Documentation Specialists (CDI) and [facility] Coding Staff appreciate your assistance in clarifying documentation. Please respond to the clarification below the line at the bottom and electronically sign. The CDI & [facility] Coding staff will review the response and follow-up if needed. Please note: Queries are made part of the Legal Health Record. If you have any questions, please contact the author of this message via ITS. Dr. Rome Astudillo Chest pain rule out acute coronary syndrome is documented in your discharge summary. Chest pain with some atypical features for acute coronary syndrome is documented in the cardiology consult note. Patient C/O: Chest pain that is substernal, crushing pressure and radiates to the right upper extremity and the jaws bilaterall and shortness of breath. History/Risk factors: Hypertension, CHF and a-fib. Patient found to have stenosis of the OM branch on heart cath. Clinical Indicators: Chest pain Labs: Troponin x1 less than 0.012, Treatment: Cardiac cath with stenting of the first obtuse marginal branch. Consults: Unstable angina is documented as the indication for the cardiac cath. In your professional opinion, can please clarify if the chest pain signifies, or is due to: Aortic stenosis CAD with angina (specify vessel and type of angina if known) Cardiac arrhythmias (specify type if known) Chest wall pain Unstable angina Other condition, please specify Unable to determine MTDD
== END 2019-06-09 16:01 | DRG 246 ==
LOC: EC 16:01 → 3SCARD 20:51
PROVIDERS: ADMIT Family Medicine; ATTEND Family Medicine
PROC: B2111ZZ Fluoroscopy of Multiple Coronary Arteries using Low Osmolar Contrast (ICD-10-PCS; 2019-06-07)
PROC: 027034Z Dilation of Coronary Artery, One Artery with Drug-eluting Intraluminal Device, Percutaneous Approach (ICD-10-PCS; principal; 2019-06-07 11:05)
PROC: 4A023N7 Measurement of Cardiac Sampling and Pressure, Left Heart, Percutaneous Approach (ICD-10-PCS; 2019-06-07 11:05)
PROC: B24BZZ4 Ultrasonography of Heart with Aorta, Transesophageal (ICD-10-PCS; 2019-06-08)
DX: I11.0 Hypertensive heart disease with heart failure (principal); J96.21 Acute and chronic respiratory failure with hypoxia; J96.22 Acute and chronic respiratory failure with hypercapnia; G40.919 Epilepsy, unspecified, intractable, without status epilepticus; I82.511 Chronic embolism and thrombosis of right femoral vein; L97.909 Non-pressure chronic ulcer of unspecified part of unspecified lower leg with unspecified severity; J98.11 Atelectasis; Z68.42 Body mass index [BMI] 45.0-49.9, adult; I50.33 Acute on chronic diastolic (congestive) heart failure; E11.40 Type 2 diabetes mellitus with diabetic neuropathy, unspecified; E11.51 Type 2 diabetes mellitus with diabetic peripheral angiopathy without gangrene; I27.20 Pulmonary hypertension, unspecified; E66.01 Morbid (severe) obesity due to excess calories; I08.3 Combined rheumatic disorders of mitral, aortic and tricuspid valves; J43.9 Emphysema, unspecified; E78.00 Pure hypercholesterolemia, unspecified; E78.5 Hyperlipidemia, unspecified; F17.210 Nicotine dependence, cigarettes, uncomplicated; F32.9 Major depressive disorder, single episode, unspecified; G47.33 Obstructive sleep apnea (adult) (pediatric); I48.0 Paroxysmal atrial fibrillation; I69.298 Other sequelae of other nontraumatic intracranial hemorrhage; I87.2 Venous insufficiency (chronic) (peripheral); J45.30 Mild persistent asthma, uncomplicated; I25.110 Atherosclerotic heart disease of native coronary artery with unstable angina pectoris; K21.9 Gastro-esophageal reflux disease without esophagitis; L30.9 Dermatitis, unspecified; R59.0 Localized enlarged lymph nodes; R32 Unspecified urinary incontinence; I69.211 Memory deficit following other nontraumatic intracranial hemorrhage; Z99.81 Dependence on supplemental oxygen; Z79.84 Long term (current) use of oral hypoglycemic drugs; Z79.899 Other long term (current) drug therapy; Z88.5 Allergy status to narcotic agent; Z87.01 Personal history of pneumonia (recurrent); Z83.3 Family history of diabetes mellitus; Z82.49 Family history of ischemic heart disease and other diseases of the circulatory system; Z82.5 Family history of asthma and other chronic lower respiratory diseases; Z82.3 Family history of stroke
CPT/HCPCS: 36415; 71045; 71046; 71275; 80048; 80053; 81001; 82803; 83036; 83735; 83880; 84484; 85025; 85347; 85379; 85610; 85730; 87040; 93306; 93312; 93320; 93325; 93458; 93970; 94640; 94660; 94760; 96365; 96366; 96368; 96374; 96375; 99291; C1874

== ENCOUNTER → 2019-07-08 | Outpatient (CLI) | payer MEDICARE, BC ==
[2019-07-08 17:22] LABS: Basophils # (A) 0.1 k/uL (0-0.2); Basophils % (A) 1 %; Eosinophils # (A) 0.2 k/uL (0-0.7); Eosinophils % (A) 3 %; HCT 32.8 % (34.0-46.0); HGB 10.1 gm/dL (11.4-16.0); Lymphocytes # (A) 1.2 k/uL (1.0-4.8); Lymphocytes % (A) 14 %; MCH 29.4 pg (25.0-35.0); MCHC 30.9 g/dL (31.0-37.0); MCV 95.2 fL (80.0-100.0); Mean Platelet Volume 6.2; Monocytes # (A) 0.4 k/uL (0-1.0); Monocytes % (A) 5 %; Neutrophils # (A) 6.4 k/uL (1.3-7.7); Neutrophils % (A) 75 %; Platelet Count 331 k/uL (150-450); RBC 3.45 m/uL (3.80-5.40); WBC 8.6 k/uL (3.8-10.6)
[2019-07-09 00:44] LABS: African American GFR (CKD) 94.9 (60.0-200.0); Albumin 4.5 g/dL (3.80-4.90); Albumin/Globulin Ratio 1.61 (1.60-3.17); Anion Gap 12.2 mmol/L (4.00-12.00); Calcium 9.4 mg/dL (8.7-10.3); Carbon Dioxide 27.8 mmol/L (21.6-31.8); Globulin 2.8 g/dL (1.6-3.3); Potassium 5.4 mmol/L (3.5-5.5); Total Bilirubin 0.3 mg/dL (0.3-1.2); Total Protein 7.3 g/dL (6.2-8.2)
== END | disposition home or self-care (01) ==
LOC: LABWHC1 14:45
PROVIDERS: ATTEND Emergency Medicine
DX: I35.0 Nonrheumatic aortic (valve) stenosis (principal)
CPT/HCPCS: 36415; 80053; 83880; 85025

== ENCOUNTER → 2020-03-29 | Outpatient (CLI) | payer MEDICARE, BC ==
[2020-03-29 20:40] LABS: African American GFR (CKD) 40.7 (60.0-200.0); Anion Gap 7.5 mmol/L (4.00-12.00); Carbon Dioxide 31.5 mmol/L (21.6-31.8); Non-African American GFR(CKD) 35.2 (60.0-200.0); Potassium 5.4 mmol/L (3.5-5.5)
== END | disposition home or self-care (01) ==
LOC: LABWHC1 10:42
PROVIDERS: ATTEND Internal Medicine Cardiovascular Disease
DX: I50.32 Chronic diastolic (congestive) heart failure (principal)
CPT/HCPCS: 36415; 80051; 82565; 84520